=== PATIENT | male | born 1940 | race Caucasian/White ===

== ENCOUNTER 2019-01-13 20:31 | Emergency (ER) | payer MEDICARE, OTHER ==
[~2019-01-13] VITALS: Ht 177.8 cm; Wt 86.2 kg
--- OUTSIDE RECORDS SUMMARY | 2019-01-13 20:37 | XMS REPORT | Continuity of Care Document ---
Author Author [facility] Organization [facility] Address Unknown Phone Unavailable Allergies Active Description Code Type Severity Reaction Onset Reported/Identified Relationship to Patient Clinical Status Yes No Known Drug Allergies [id number] Drug Allergy Unknown N/A 09/25/2012 Medications There is no data. Problems There is no data. Procedures There is no data. Results There is no data. Encounters ACCT No. Visit Date/Time Discharge Status Pt. Type Provider Facility Loc./Unit Complaint [id number] 01/05/2014 09:33:00 01/05/2014 23:59:59 [facility] Outpatient [id number] 10/06/2013 10:30:00 10/06/2013 23:59:59 [facility] Out[facility] [id number] 07/07/2013 13:24:00 07/07/2013 23:59:59 [facility] Outpatient [id number] 04/07/2013 10:59:00 04/07/2013 23:59:59 [facility] Outpatient [id number] 01/13/2019 20:33:00 ACT Emergency ESME ROJO DO [facility] ER FS HIGH HEART RATE, SOB, WEAK
[2019-01-13] MEDS ORDERED: morphine INJ 10 MG/ML 1ML (SYR OR VIAL) IV STA (20:52)
[2019-01-13 21:00] VITALS: BP 140/69
[2019-01-13 21:30] VITALS: BP 149/69
--- NOTE | 2019-01-13 21:35 | ED Chest Pain ---
General Chief Complaint: Cardiac/General Problems Stated Complaint: HIGH HEART RATE, SOB, WEAK Nursing Triage Note: palpitations started this afternoon around 1500, states he has had off and on since saturday. pt states no pain to chest just pressure at a 5. Nursing Sepsis Screen: No Definite Risk History of Present Illness Date Seen by Provider: Jan 13, 2019 Time Seen by Provider: 20:42 This is a 78-year-old male with a history of hypertension, atrial fibrillation on L Aquinas, here for a sensation of generalized shakiness, elevation in blood pressure reading at home, sensation that the heart is beating hard, some degree of chest pressure. He just finished a course of steroids yesterday for back pain as prescribed by his orthopedic surgeon. He has had stress test in the past that have been normal however the last one was over a year ago he estimates. He has not been having shortness of breath or lightheadedness or nausea or diaphoresis. The chest pressure did not radiate to the back of the neck or the arm or elsewhere. It actually has completely resolved at this time. The chest discomfort has been waxing and waning for the last several days actually but was worse starting about 5 hours prior to arrival. This is nonexertional. The pain is not sharp or tearing, it is not migratory, it was not severe when present, there is no weakness numbness or tingling. He did not drink a lot of water today because he was traveling a lot, he had coffee and a small gatorade. Allergies and Home Medications Allergies Coded Allergies: codeine (Verified Allergy, Unknown, itching, 01/13/19) Home Medications Ferrous Gluconate 1 Tab Tablet, DAILY, (Reported) Vit B Cmplx & C#11/Ca/Dha/Q10 1 Each Tablet, DAILY, (Reported) Vit C/Echin Purp/Herb11 500 Mg Tablet, DAILY, (Reported) Patient Home Medication List Home Medication List Reviewed: Yes Review of Systems Review of Systems Constitutional: see HPI EENTM: No Symptoms Reported Respiratory: No Symptoms Reported Cardiovascular: See HPI Gastrointestinal: No Symptoms Reported Genitourinary: No Symptoms Reported Musculoskeletal: no symptoms reported Skin: no symptoms reported Psychiatric/Neurological: No Symptoms Reported Endocrine: No Symptoms Reported Hematologic/Lymphatic: No Symptoms Reported Past Hqeprkz-Kvnruh-Gybvcg Hx Patient Social History Alcohol Use: Denies Use Recreational Drug Use: No Smoking Status: Never a Smoker 2nd Hand Smoke Exposure: No Recent Foreign Travel: No Contact w/Someone Who Travel: No Recent Infectious Disease Expo: No Recent Hopitalizations: No Physical Abuse: No Sexual Abuse: No Mistreated: No Fear: No Seasonal Allergies Seasonal Allergies: No Past Medical History Surgeries: Yes Abdominal, Eye Surgery, Joint Replacement Respiratory: Yes Cardiac: Yes Atrial Fibrillation, Irregular Heartbeat, Palpitations Neurological: No Genitourinary: Yes Prostate Problems, Kidney Stones Gastrointestinal: Yes Liver Disease/Jaundice Musculoskeletal: Yes Arthritis Endocrine: No HEENT: Yes Cataract Cancer: Yes Lung What Type of Treatment Did You: Surgical Intervention Psychosocial: No Integumentary: No Blood Disorders: No Physical Exam Vital Signs Vital Signs - First Documented 01/13/19 01/13/19 20:53 21:00 Temp 98.8 Pulse 86 Resp 18 B/P (MAP) 177/63 (101) Pulse Ox 98 O2 Delivery Room Air Capillary Refill : Less Than 3 Seconds Height, Weight, BMI Height: 5'10.00" Weight: 190lbs. oz. 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 Norm as Tested; No Abnormal Gait Skin: Warm/Dry Progress/Results/Core Measures Results/Orders Lab Results Laboratory Tests Test 01/13/19 21:20 01/13/19 22:12 Range/Units White Blood Count 9.6 4.3-11.0 10^3/uL Red Blood Count 4.68 4.35-5.85 10^6/uL Hemoglobin 13.2 L 13.3-17.7 G/DL Hematocrit 41 40-54 % Mean Corpuscular Volume 88 80-99 FL Mean Corpuscular Hemoglobin 28 25-34 PG Mean Corpuscular Hemoglobin Concent 32 32-36 G/DL Red Cell Distribution Width 15.9 H 10.0-14.5 % Platelet Count 215 130-400 10^3/uL Mean Platelet Volume 10.6 H 7.4-10.4 FL Prothrombin Time 13.3 12.2-14.7 SEC INR Comment 1.0 0.8-1.4 Activated Partial Thromboplast Time 27 24-35 SEC Sodium Level 139 135-145 MMOL/L Potassium Level 3.9 3.6-5.0 MMOL/L Chloride Level 103 98-107 MMOL/L Carbon Dioxide Level 20 L 21-32 MMOL/L Anion Gap 16 H 5-14 MMOL/L Blood Urea Nitrogen 27 H 7-18 MG/DL Creatinine 1.06 0.60-1.30 MG/DL Estimat Glomerular Filtration Rate > 60 BUN/Creatinine Ratio 25 Glucose Level 234 H 70-105 MG/DL Calcium Level 9.3 8.5-10.1 MG/DL Corrected Calcium 9.3 8.5-10.1 MG/DL Magnesium Level 1.8 1.8-2.4 MG/DL Total Bilirubin 0.2 0.1-1.0 MG/DL Aspartate Amino Transf (AST/SGOT) 15 5-34 U/L Alanine Aminotransferase (ALT/SGPT) 22 0-55 U/L Alkaline Phosphatase 58 40-136 U/L Troponin T 14 <=15 NG/L Total Protein 6.7 6.4-8.2 GM/DL Albumin 4.0 3.2-4.5 GM/DL My Orders Orders - ESME ROJO DO Magnesium (01/13/19 20:52) Chest 1 View Ap/Pa Only (01/13/19 20:52) Ekg Tracing (01/13/19 20:52) Comprehensive Metabolic Panel (01/13/19 20:52) Protime With Inr (01/13/19 20:52) Partial Thromboplastin Time (01/13/19 20:52) Monitor-Rhythm Ecg Trace Only (01/13/19 20:52) Morphine Injection (Morphine Injection (01/13/19 20:52) Saline Lock/Iv-Start (01/13/19 20:52) Cbc No Diff (01/13/19 20:52) Amlodipine Tablet (Norvasc Tablet) (01/13/19 21:59) Ns Iv 1000 Ml (Sodium Chloride 0.9%) (01/13/19 22:16) Lisinopril Tablet (Zestril Tablet) (01/13/19 22:16) Ekg Tracing (01/13/19 22:30) Troponin T (01/13/19 22:18) Troponin T (01/13/19 23:29) Vital Signs/I&O 01/13/19 01/13/19 01/13/19 20:53 21:00 21:30 Temp 98.8 Pulse 86 75 69 Resp 18 15 16 B/P (MAP) 177/63 (101) 140/69 (92) 149/69 (95) Pulse Ox 98 97 O2 Delivery Room Air Room Air Room Air Blood Pressure Mean: 101 Progress Progress Note #1: Progress Note This is a 78-year-old male complaining of shakiness, elevated blood pressure after finishing a course of steroids yesterday, also a sensation that the heart is beating hard and some degree of chest pressure. The chest pressure has been coming going over the last few days and has many features which are atypical for ACS or PE or dissection. No STEMI on ECG although there are some subtle ST changes which are partially obscured by artifact. We will repeat this study. His pain has been ongoing for several days, worse over the last 5 hours. We will check a troponin now and we can repeat at 2 hours for adequate sensitivity to rule out AMI. I did discuss with patient admission for ACS rule out versus outpatient follow-up with cardiology which is also a reasonable strategy assuming that patient remains asymptomatic, he prefers to go home. I offered morphine for pain and for anxiolysis, he actually again denied need for any medications for his symptoms at this time as they have resolved. Progress Note #2: Progress Note Highest blood pressures recorded at home were in the 170s over 80s range. Blood pressures in the emergency department have been similar, systolics have ranged from 160-190. Patient takes a low-dose of lisinopril at home, 2.5 mg daily, we can give a higher dose in the emergency department to gently bring his blood pressure lower. Glucose is slightly elevated, bicarbonate is 20, and there is a prerenal azotemia so we will give a liter of saline. Progress Note #3: Progress Note Patient remains feeling well and would like to go home. Most recent blood pressure 159/69. He feels that shakiness has resolved. He will call his doctor tomorrow. He will call 911 or return immediately for any new or worsening symptoms. EKG : Comment 2036: Sinus rhythm with first-degree AV block with premature atrial complexes rate of 85, OR interval 216 ms. There is artifact and baseline wander which obscures interpretation of the ST segments primarily in the lateral leads. QTC is measured at 466 ms. Repeat ECG at 2306: Sinus rhythm with first-degree AV block with premature atrial complexes as before, rate of 62. There is artifact which obscures interpretation in the augmented limb leads. There is nonspecific T-wave flattening in the anterior and inferior leads. QTC measured at 312 ms on this ECG. Diagnostic Imaging Diagonstic Imaging: Xray Departure Impression Primary Impression: Chest discomfort Additional Impressions: Palpitations Steroid side effects Qualified Codes: T38.0X5A - Adverse effect of glucocorticoids and synthetic analogues, initial encounter Hyperglycemia Hypertension Qualified Codes: I10 - Essential (primary) hypertension Dehydration Disposition: 01 HOME, SELF-CARE Condition: Stable Departure-Patient Inst. Referrals: HAIR GARCIA MD (PCP) Primary Care Physician Patient Instructions: Chest Pain (DC) ESME ROJO DO Jan 13, 2019 21:35
[2019-01-13 21:36] LABS: HEMOGLOBIN 13.2 G/DL (13.3-17.7); RED CELL DISTRIBUTION WIDTH 15.9 % (10.0-14.5); WHITE BLOOD COUNT 9.6 10^3/uL (4.3-11.0)
[2019-01-13 21:37] LABS: MEAN PLATELET VOLUME 10.6 FL (7.4-10.4)
--- NOTE | 2019-01-13 21:55 | Diagnostic Imaging Report ---
INDICATION: Palpitations FINDINGS: Heart size and configuration normal. The lungs are clear. There is no vascular congestion. No edema, pneumonia, effusion or pneumothorax. IMPRESSION: No acute appearing abnormality. Dictated by: Dictated on workstation # [id number]
[2019-01-13 21:57] LABS: BUN/CREATININE RATIO 25; CARBON DIOXIDE 20 MMOL/L (21-32); CHLORIDE 103 MMOL/L (98-107); CREATININE SERUM 1.06 MG/DL (0.60-1.30); GFR ESTIMATED > 60; GLUCOSE 234 MG/DL (70-105); POTASSIUM 3.9 MMOL/L (3.6-5.0); SODIUM 139 MMOL/L (135-145)
[2019-01-13 21:58] LABS: ALANINE AMINOTRANSFERASE 22 U/L (0-55); ALKALINE PHOSPHATASE 58 U/L (40-136); BILIRUBIN,TOTAL 0.2 MG/DL (0.1-1.0); CALCIUM 9.3 MG/DL (8.5-10.1); MAGNESIUM 1.8 MG/DL (1.8-2.4); TOTAL PROTEIN 6.7 GM/DL (6.4-8.2)
[2019-01-13] MEDS ORDERED: amLODIPine 5 MG (NORVASC) TAB PO STA (21:59)
[2019-01-13] MEDS ORDERED: FLECAINIDE ACETATE 100 MG (22:00)
[2019-01-13] MEDS ORDERED: HYDROCHLOROTHIAZIDE 12.5 MG (22:00)
[2019-01-13] MEDS ORDERED: METFORMIN HYDROCHLORIDE 500 MG (22:00)
[2019-01-13] MEDS ORDERED: HYDROCO/APAP TAB 5-325MG (22:00)
[2019-01-13] MEDS ORDERED: TEMAZEPAM 30 MG (22:00)
[2019-01-13] MEDS ORDERED: AMLODIPINE BESYLATE 10 MG TABS (22:00)
[2019-01-13] MEDS ORDERED: PANTOPRAZOLE SODIUM 40 MG TBEC (22:00)
[2019-01-13] MEDS ORDERED: LISINOPRIL 2.5 MG TABS (22:00)
[2019-01-13] MEDS ORDERED: ELIQUIS 5 MG (22:00)
[2019-01-13] MEDS ORDERED: POTASSIUM CHLORIDE 20 MEQ (22:00)
[2019-01-13] MEDS ORDERED: DIGOXIN 125 MCG (22:00)
[2019-01-13] MEDS ORDERED: VIT1TABL (22:05)
[2019-01-13] MEDS ORDERED: VIT1TABL57 (22:05)
[2019-01-13] MEDS ORDERED: ACET-2650 (22:05)
[2019-01-13] MEDS ORDERED: VIT500TA (22:05)
[2019-01-13] MEDS ORDERED: MULT-974 (22:05)
[2019-01-13] MEDS ORDERED: FERR240T9 (22:05)
[2019-01-13 22:07] LABS: PROTHROMBIN TIME PATIENT 13.3 SEC (12.2-14.7)
[2019-01-13] MEDS ORDERED: lisINopril 10 MG (PRINIVIL) TABLET PO STA (22:16)
[2019-01-13] MEDS ORDERED: NS IV 1000 ML 1,000 ML IV STA (22:16)
[2019-01-13 23:56] VITALS: BP 159/69
== END 2019-01-13 23:56 | disposition home or self-care (01) ==
LOC: EDUNIT# 20:31 → ER FS 20:33
DX: R07.89 Other chest pain (principal); R00.2 Palpitations; T38.0X5A Adverse effect of glucocorticoids and synthetic analogues, initial encounter; R73.9 Hyperglycemia, unspecified; I10 Essential (primary) hypertension; E86.0 Dehydration; I48.91 Unspecified atrial fibrillation; Z88.5 Allergy status to narcotic agent; Z98.890 Other specified postprocedural states; Z87.442 Personal history of urinary calculi; Z87.19 Personal history of other diseases of the digestive system; Z85.118 Personal history of other malignant neoplasm of bronchus and lung
CPT/HCPCS: 36415; 71045; 80053; 83735; 84484; 85027; 85610; 85730; 93005

== ENCOUNTER 2019-04-17 10:30 | Inpatient (IN) | payer MEDICARE, OTHER ==
[~2019-04-17] VITALS: Ht 177.8 cm; Wt 84.1 kg
[~2019-04-17 10:30] MED LIST: ACET-2650 PO; AMLODIPINE BESYLATE 10 MG TABS; DIGOXIN 125 MCG; ELIQUIS 5 MG; FERR240T9; FLECAINIDE ACETATE 100 MG; HYDROCHLOROTHIAZIDE 12.5 MG; HYDROCO/APAP TAB 5-325MG; LISINOPRIL 2.5 MG TABS; METFORMIN HYDROCHLORIDE 500 MG; MULT-974; PANTOPRAZOLE SODIUM 40 MG TBEC; POTASSIUM CHLORIDE 20 MEQ; TEMAZEPAM 30 MG; VIT1TABL PO; VIT1TABL57; VIT500TA
--- NOTE | 2019-04-17 11:04 | ED General ---
General Stated Complaint: LIP/JEANA FEET NUMBNESS; DOUBLE VISION Source of Information: Patient Exam Limitations: No Limitations History of Present Illness Date Seen by Provider: Apr 17, 2019 Time Seen by Provider: 10:48 Initial Comments The patient is a very pleasant 78-year-old male here with his for evaluation of an episode of leg heaviness and vision changes. He states that he woke up today feeling normal and has not some which lasted approximately 60-90 minutes during which he felt like he was having double vision and extremely heavy legs. He states that his legs felt there were 50 pounds. He said it is because of the heaviness he was feeling he found it difficult to walk. The time and they checked his blood pressure and found it to be slightly elevated and check his blood sugar and found it to be around 100. The patient reports that his symptoms have almost entirely resolved. He says his vision changes have completely resolved but that he is having a tingling sensation around his lips and that his legs feel mostly back to normal. He is alert and oriented 4, calm, appears to be in no distress. He denies fevers or chills, nausea or vomiting, chest pain or shortness of breath, abdominal back pain, focal weakness, focal numbness, headache, neck pain or neck stiffness, syncope, recent head injury, confusion, difficulty speaking, or difficulty mentating. His was present at the time and states that his speech was normal and he did not seem confused but noted that his face seemed somewhat red. His significant past medical history including but not limited to right-sided lung cancer (had recent PET scan, had previous lower lobectomy), GI bleeding status post colostomy, hypertension, atrial fibrillation, and borderline diabetes. Timing/Duration: 1-3 Hours Severity: Moderate Allergies and Home Medications Allergies Coded Allergies: codeine (Verified Allergy, Unknown, itching, 01/13/19) Home Medications Ferrous Gluconate 1 Tab Tablet, DAILY, (Reported) Vit B Cmplx & C#11/Ca/Dha/Q10 1 Each Tablet, DAILY, (Reported) Vit C/Echin Purp/Herb11 500 Mg Tablet, DAILY, (Reported) Patient Home Medication List Home Medication List Reviewed: Yes Review of Systems Review of Systems Constitutional: no symptoms reported EENTM: see HPI, double vision Respiratory: no symptoms reported Cardiovascular: no symptoms reported Gastrointestinal: no symptoms reported Genitourinary: no symptoms reported Musculoskeletal: no symptoms reported Skin: no symptoms reported Psychiatric/Neurological: No Symptoms Reported, Paresthesia (perioral), Other (b/l legs felt heavy, difficulty walking) Hematologic/Lymphatic: No Symptoms Reported Immunological/Allergic: no symptoms reported Past Eiesznn-Mbvtfd-Ettthq Hx Past Med/Social Hx: Reviewed Nursing Past Med/Soc Hx, Reviewed and Corrections made Patient Social History 2nd Hand Smoke Exposure: No Recent Hopitalizations: No Seasonal Allergies Seasonal Allergies: No Past Medical History Surgeries: Yes Abdominal, Eye Surgery, Joint Replacement Respiratory: Yes Cardiac: Yes Atrial Fibrillation, Irregular Heartbeat, Palpitations Neurological: No Genitourinary: Yes Prostate Problems, Kidney Stones Gastrointestinal: Yes Liver Disease/Jaundice Musculoskeletal: Yes Arthritis Endocrine: No HEENT: Yes Cataract Cancer: Yes Lung What Type of Treatment Did You: Surgical Intervention Psychosocial: No Integumentary: No Blood Disorders: No Physical Exam Vital Signs Vital Signs - First Documented 04/17/19 10:35 Temp 97.8 Pulse 69 Resp 16 B/P (MAP) 152/63 (92) Pulse Ox 97 O2 Delivery Room Air Capillary Refill : Height, Weight, BMI Height: 5'10.00" Weight: 190lbs. oz. 86.089480xa; BMI Method:Stated General Appearance: No Apparent Distress, WD/WN Eyes: Bilateral Eye Normal Inspection, Bilateral Eye PERRL, Bilateral Eye EOMI HEENT: PERRL/EOMI, Normal ENT Inspection, Pharynx Normal Neck: Full Range of Motion, Normal Inspection, Non Tender, Supple Respiratory: Chest Non Tender, Lungs Clear, Normal Breath Sounds, No Accessory Muscle Use, No Respiratory Distress Cardiovascular: Regular Rate, Rhythm, No Edema, No Gallop, No JVD Gastrointestinal: Normal Bowel Sounds, No Organomegaly, No Pulsatile Mass, Non Tender, Soft, Other (colostomy present) Back: Normal Inspection, No CVA Tenderness, No Vertebral Tenderness Extremity: Normal Capillary Refill, Normal Inspection, Normal Range of Motion, Non Tender, No Calf Tenderness Neurologic/Psychiatric: Alert, Oriented x3, No Motor/Sensory Deficits, Normal 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, 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 Norm as Tested Skin: Normal Color, Warm/Dry Lymphatic: No Adenopathy Progress/Results/Core Measures Suspected Sepsis SIRS Temperature: Pulse: Respiratory Rate: Laboratory Tests 04/17/19 10:45: White Blood Count 7.2 Blood Pressure / Mean: Laboratory Tests 04/17/19 10:45: Creatinine 1.13, Platelet Count 229, Total Bilirubin 0.4 Results/Orders Lab Results Laboratory Tests Test 04/17/19 10:45 04/17/19 11:43 Range/Units White Blood Count 7.2 4.3-11.0 10^3/uL Red Blood Count 4.47 4.35-5.85 10^6/uL Hemoglobin 13.6 13.3-17.7 G/DL Hematocrit 41 40-54 % Mean Corpuscular Volume 91 80-99 FL Mean Corpuscular Hemoglobin 30 25-34 PG Mean Corpuscular Hemoglobin Concent 34 32-36 G/DL Red Cell Distribution Width 14.1 10.0-14.5 % Platelet Count 229 130-400 10^3/uL Mean Platelet Volume 10.4 7.4-10.4 FL Neutrophils (%) (Auto) 75 42-75 % Lymphocytes (%) (Auto) 13 12-44 % Monocytes (%) (Auto) 10 0-12 % Eosinophils (%) (Auto) 2 0-10 % Basophils (%) (Auto) 0 0-10 % Neutrophils # (Auto) 5.4 1.8-7.8 X 10^3 Lymphocytes # (Auto) 0.9 L 1.0-4.0 X 10^3 Monocytes # (Auto) 0.7 0.0-1.0 X 10^3 Eosinophils # (Auto) 0.1 0.0-0.3 10^3/uL Basophils # (Auto) 0.0 0.0-0.1 10^3/uL Sodium Level 136 135-145 MMOL/L Potassium Level 4.3 3.6-5.0 MMOL/L Chloride Level 98 98-107 MMOL/L Carbon Dioxide Level 24 21-32 MMOL/L Anion Gap 14 5-14 MMOL/L Blood Urea Nitrogen 20 H 7-18 MG/DL Creatinine 1.13 0.60-1.30 MG/DL Estimat Glomerular Filtration Rate > 60 BUN/Creatinine Ratio 18 Glucose Level 147 H 70-105 MG/DL Calcium Level 9.6 8.5-10.1 MG/DL Corrected Calcium 9.3 8.5-10.1 MG/DL Total Bilirubin 0.4 0.1-1.0 MG/DL Aspartate Amino Transf (AST/SGOT) 22 5-34 U/L Alanine Aminotransferase (ALT/SGPT) 18 0-55 U/L Alkaline Phosphatase 64 40-136 U/L Troponin T 17 H <=15 NG/L Pro-B-Type Natriuretic Peptide 62.0 <75.0 PG/ML Total Protein 7.3 6.4-8.2 GM/DL Albumin 4.4 3.2-4.5 GM/DL Urine Color YELLOW Urine Clarity CLEAR Urine pH 5.5 5-9 Urine Specific [place] 1.015 L 1.016-1.022 Urine Protein NEGATIVE NEGATIVE Urine Glucose (UA) NEGATIVE NEGATIVE Urine Ketones NEGATIVE NEGATIVE Urine Nitrite NEGATIVE NEGATIVE Urine Bilirubin NEGATIVE NEGATIVE Urine Urobilinogen 0.2 NORMAL MG/DL Urine Leukocyte Esterase NEGATIVE NEGATIVE Urine RBC (Auto) NEGATIVE NEGATIVE Urine RBC 0-2 /HPF Urine WBC 0-2 /HPF Urine Squamous Epithelial Cells 0-2 /HPF Urine Crystals NONE /LPF Urine Bacteria NEGATIVE /HPF Urine Casts PRESENT /LPF Urine Hyaline Casts 0-2 H /LPF Urine Mucus FEW /LPF Urine Culture Indicated NO My Orders Orders - WILLIAM MAN DO Ct Head Wo (04/17/19 10:54) Cbc With Automated Diff (04/17/19 10:54) Comprehensive Metabolic Panel (04/17/19 10:54) Urinalysis (04/17/19 10:54) Technical Data Analyst (04/17/19 10:54) Ekg Tracing (04/17/19 10:54) Troponin T (04/17/19 10:54) Probnp Fs (04/17/19 10:54) Chest 1 View Ap/Pa Only (04/17/19 10:54) Ed Iv/Invasive Line Start (04/17/19 10:54) Creatine Kinase Mb (04/17/19 12:18) Aspirin Chewable Tablet (Baby Aspirin Ch (04/17/19 12:30) Vital Signs/I&O 04/17/19 10:35 Temp 97.8 Pulse 69 Resp 16 B/P (MAP) 152/63 (92) Pulse Ox 97 O2 Delivery Room Air Capillary Refill : Progress Note : Progress Note @1225 - patient and updated on lab and imaging results. Due to the pat ient's symptoms were due to concern for possible TIA and his slightly elevated troponin admission will be required. They are agreeable to this. Patient prefers to go to [facility]. He was recently at [facility] however does not want to go there again and [facility] will be able to accommodate him at this time. Dr. Johnny galvez at this time. ECG Initial ECG Impression Date: Apr 17, 2019 Initial ECG Impression Time: 10:52 Initial ECG Rhythm: Normal Sinus, A Fib/Flutter Initial ECG Intervals Atrial fibrillation with a rate of 66, normal axis, no acute ischemic findings noted, no STEMI, reviewed and interpreted by myself Diagnostic Imaging Diagonstic Imaging: Xray, CT Plain Films/CT/US/NM/MRI: head Comments [facility] [place], [place] NAME: JOANN CLAIRE [facility] REC#: [id number] PT STATUS: REG ER : 1940 PHYSICIAN: WILLIAM MAN DO ADMIT DATE: 04/17/19/ER FS Draft Date of Exam:04/17/19 CT HEAD WO INDICATION: Sudden onset double vision and facial numbness EXAM: Noncontrast brain CT is performed COMPARISON: There is no prior study for comparison FINDINGS: There are mild diffuse atrophic changes. There are no extra-axial fluid collections. No intracranial hemorrhage. No mass or mass effect. No midline shift. The ventricles are normal in size and position. There is no focal parenchymal abnormality of the brain. There are some vascular calcifications noted in the distal vertebral arteries and carotid siphons. Calvarial windows appear normal. IMPRESSION: Diffuse atrophic changes. No acute intracranial process visualized. Dictated on workstation # [id number] Dict: 04/17/19 1117 Trans: 04/17/19 [address] [facility] [id number] Interpreted by: MEGA HOLDEN MD Electronically signed by: [facility] [place], [place] NAME: JOANN CLAIRE [facility] REC#: [id number] PT STATUS: REG ER : 1940 PHYSICIAN: WILLIAM MAN DO ADMIT DATE: 04/17/19/ER FS Draft Date of Exam:04/17/19 CHEST 1 VIEW AP/PA ONLY INDICATION: Sudden onset of double vision and lip numbness. TIME OF EXAM: 10:58 AM CORRELATION is made with prior study from 01/13/2019. FINDINGS: The heart size is stable. The lungs are clear. No infiltrate, effusion or pneumothorax is seen. IMPRESSION: No acute cardiopulmonary process is detected. Dictated on workstation # [id number] Dict: 04/17/19 1120 Trans: 04/17/19 [address] [facility] [id number] Interpreted by: ROBERT JOHNSON MD Electronically signed by: Departure Impression Primary Impression: TIA (transient ischemic attack) Additional Impression: Elevated troponin level Disposition: ADMITTED INPATIENT Condition: Stable Admissions Decision to Admit/Date: Apr 17, 2019 Time/Decision to Admit Time: 12:25 Transfer Time Spoke to Accepting Phy: 12:40 Transfer Progress Notes Case discussed with Dr. Garay who accepts the observation admission and has confirmed that she will be able to obtain an MRI this afternoon. Method of Transfer: EMS Departure-Patient Inst. Decision time for Depature: 12:40 Referrals: [facility] (PCP) Primary Care Physician ROMSERY WADE APRN (Family) Primary Care Physician WILLIAM MAN DO Apr 17, 2019 11:04
[2019-04-17 11:18] LABS: HEMATOCRIT 41 % (40-54); HEMOGLOBIN 13.6 G/DL (13.3-17.7); MEAN CORPUSCULAR HEMOGLOBIN 30 PG (25-34); WHITE BLOOD COUNT 7.2 10^3/uL (4.3-11.0)
[2019-04-17 11:19] LABS: BASOPHILS % (AUTO) 0 % (0-10); EOSINOPHILS # (AUTO) 0.1 10^3/uL (0.0-0.3); EOSINOPHILS % (AUTO) 2 % (0-10); LYMPHOCYTES # (AUTO) 0.9 X 10^3 (1.0-4.0); LYMPHOCYTES % (AUTO) 13 % (12-44); MEAN CORPUSCULAR HGB CONC 34 G/DL (32-36); MEAN CORPUSCULAR VOLUME 91 FL (80-99); MEAN PLATELET VOLUME 10.4 FL (7.4-10.4); MONOCYTES # (AUTO) 0.7 X 10^3 (0.0-1.0); MONOCYTES % (AUTO) 10 % (0-12); NEUTROPHILS # (AUTO) 5.4 X 10^3 (1.8-7.8); NEUTROPHILS % (AUTO) 75 % (42-75); PLATELET COUNT 229 10^3/uL (130-400); RED CELL DISTRIBUTION WIDTH 14.1 % (10.0-14.5)
--- NOTE | 2019-04-17 11:24 | Diagnostic Imaging Report ---
INDICATION: Sudden onset of double vision and lip numbness. TIME OF EXAM: 10:58 AM CORRELATION is made with prior study from 01/13/2019. FINDINGS: The heart size is stable. The lungs are clear. No infiltrate, effusion or pneumothorax is seen. IMPRESSION: No acute cardiopulmonary process is detected. Dictated by: Dictated on workstation # [id number]
--- NOTE | 2019-04-17 11:30 | Diagnostic Imaging Report ---
INDICATION: Sudden onset double vision and facial numbness EXAM: Noncontrast brain CT is performed COMPARISON: There is no prior study for comparison FINDINGS: There are mild diffuse atrophic changes. There are no extra-axial fluid collections. No intracranial hemorrhage. No mass or mass effect. No midline shift. The ventricles are normal in size and position. There is no focal parenchymal abnormality of the brain. There are some vascular calcifications noted in the distal vertebral arteries and carotid siphons. Calvarial windows appear normal. IMPRESSION: Diffuse atrophic changes. No acute intracranial process visualized. Dictated by: Dictated on workstation # [id number]
[2019-04-17 11:31] LABS: CARBON DIOXIDE 24 MMOL/L (21-32); CHLORIDE 98 MMOL/L (98-107); POTASSIUM 4.3 MMOL/L (3.6-5.0); SODIUM 136 MMOL/L (135-145)
[2019-04-17 11:32] LABS: ALANINE AMINOTRANSFERASE 18 U/L (0-55); ALKALINE PHOSPHATASE 64 U/L (40-136); BILIRUBIN,TOTAL 0.4 MG/DL (0.1-1.0); BUN/CREATININE RATIO 18; CALCIUM 9.6 MG/DL (8.5-10.1); CREATININE SERUM 1.13 MG/DL (0.60-1.30); GFR ESTIMATED > 60; GLUCOSE 147 MG/DL (70-105); TOTAL PROTEIN 7.3 GM/DL (6.4-8.2)
[2019-04-17 11:33] LABS: ALBUMIN 4.4 GM/DL (3.2-4.5)
[2019-04-17 11:58] LABS: BACTERIA,URINE NEGATIVE /HPF; BILIRUBIN,URINE NEGATIVE (NEGATIVE); CLARITY,URINE CLEAR; COLOR,URINE YELLOW; GLUCOSE, URINE (UA) NEGATIVE (NEGATIVE); KETONES,URINE NEGATIVE (NEGATIVE); LEUKOCYTE ESTERASE ,URINE NEGATIVE (NEGATIVE); NITRITE,URINE NEGATIVE (NEGATIVE); PH,URINE 5.5 (5-9); PROTEIN,URINE NEGATIVE (NEGATIVE); RBC,URINE 0-2 /HPF; SQUAMOUS EPITHELIAL CELL,UR 0-2 /HPF; UROBILINOGEN,URINE 0.2 MG/DL (NORMAL); WBC,URINE 0-2 /HPF
[2019-04-17 11:59] LABS: HYALINE CASTS, URINE 0-2 /LPF
[2019-04-17] MEDS ORDERED: ASPIRIN 81 MG CHEW (CHILDREN'S ASA) PO ONE (12:30)
[2019-04-17] MEDS ORDERED: ALPRAZolam 0.25 MG (XANAX) TAB PO PRN (13:00)
[2019-04-17] MEDS ORDERED: DOCUSATE SODIUM 100 MG (COLACE) CAP PO PRN (13:00)
[2019-04-17] MEDS ORDERED: CALCIUM CARBONATE 500 MG (TUMS) TAB.CHEW PO PRN (13:00)
[2019-04-17] MEDS ORDERED: LOPERAMIDE 2 MG (IMODIUM) CAP PO PRN (13:00)
[2019-04-17] MEDS ORDERED: ONDANSETRON 4 MG/2 ML (SDV) Z0FRAN IVP PRN (13:00)
[2019-04-17] MEDS ORDERED: ACETAMINOPHEN 500 MG TAB (TYLENOL) PO PRN ×2 (13:00→21:45)
[2019-04-17] MEDS ORDERED: HYDROcodone/APAP 5 MG/325 MG (LORTAB) TAB PO PRN ×2 (13:00→20:30)
[2019-04-17] MEDS ORDERED: MELATONIN 3 MG TABLET PO PRN (13:00)
--- OUTSIDE RECORDS SUMMARY | 2019-04-17 13:44 | XMS REPORT | Continuity of Care Document ---
Author Organization Unknown Address Unknown Allergies Active Description Code Type Severity Reaction Onset Reported/Identified Relationship to Patient Clinical Status Yes No Known Drug Allergies [id number] Drug Allergy Unknown N/A 09/25/2012 Yes codeine [id number] Drug Allergy Unknown itching 01/13/2019 Medications There is no data. Problems Date Dx Coded Attending Type Code Diagnosis Diagnosed By 01/13/2019 ANASTASIIA BALL Ot 585.3 CHRONIC KIDNEY DISEASE, STAGE III (MODER 01/13/2019 ANASTASIIA BALL Ot V10.09 HX OF GI MALIGNANCY NEC 01/13/2019 ANASTASIIA BALL Ot V44.2 ILEOSTOMY STATUS 01/13/2019 ANASTASIIA BALL Ot V58.69 OTH MED,LT,CURRENT USE 01/13/2019 ANASTASIIA BALL Ot V67.09 SURGERY FOLLOW-UP, OTHER SURGERY 01/13/2019 ESME ROJO DO Ot E86.0 DEHYDRATION 01/13/2019 ESME ORJO DO Ot I10 ESSENTIAL (PRIMARY) HYPERTENSION 01/13/2019 ESME ROJO DO T Ot I48.91 UNSPECIFIED ATRIAL FIBRILLATION 01/13/2019 ESME ROJO DO Ot R00.2 PALPITATIONS 01/13/2019 ESME ROJO DO Ot R06.02 SHORTNESS OF BREATH 01/13/2019 ESME ROJO DO T Ot R07.89 OTHER CHEST PAIN 01/13/2019 ESME ROJO DO T Ot R73.9 HYPERGLYCEMIA, UNSPECIFIED 01/13/2019 ESME ROJO DO Ot T38.0X5A ADVERSE EFFECT OF GLUCOCORT/SYNTH ANALOG 01/13/2019 ESME ROJO DO T Ot Z85.118 PERSONAL HISTORY OF MALIGNANT NEOPLASM O 01/13/2019 ESME ROJO DO T Ot Z87.19 PERSONAL HISTORY OF OTHER DISEASES OF TH 01/13/2019 ESME ROJO DO Ot Z87.442 PERSONAL HISTORY OF URINARY CALCULI 01/13/2019 ESME ROJO DO Ot Z88.5 ALLERGY STATUS TO NARCOTIC AGENT STATUS 01/13/2019 ESME ROJO DO Ot Z98.890 OTHER SPECIFIED POSTPROCEDURAL STATES Procedures There is no data. Results Test Result Range Automated blood complete blood count (hemogram) panel - 01/13/19 21:20 Blood leukocytes automated count (number/volume) 9.6 10*3/uL 4.3-11.0 Blood erythrocytes automated count (number/volume) 4.68 10*6/uL 4.35-5.85 Venous blood hemoglobin measurement (mass/volume) 13.2 g/dL 13.3-17.7 Blood hematocrit (volume fraction) 41 % 40-54 Automated erythrocyte mean corpuscular volume 88 [foz_us] 80-99 Automated erythrocyte mean corpuscular hemoglobin (mass per erythrocyte) 28 pg 25-34 Automated erythrocyte mean corpuscular hemoglobin concentration measurement (mass/volume) 32 g/dL 32-36 Automated erythrocyte distribution width ratio 15.9 % 10.0- 14.5 Automated blood platelet count (count/volume) 215 10*3/uL 130-400 Automated blood platelet mean volume measurement 10.6 [foz_us] 7.4-10.4 Comprehensive metabolic panel - 01/13/19 21:20 Serum or plasma sodium measurement (moles/volume) 139 mmol/L 135-145 Serum or plasma potassium measurement (moles/volume) 3.9 mmol/L 3.6-5.0 Serum or plasma chloride measurement (moles/volume) 103 mmol/L 98-107 Carbon dioxide 20 mmol/L 21-32 Serum or plasma anion gap determination (moles/volume) 16 mmol/L 5-14 Serum or plasma urea nitrogen measurement (mass/volume) 27 mg/dL 7-18 Serum or plasma creatinine measurement (mass/volume) 1.06 mg/dL 0.60-1.30 Serum or plasma urea nitrogen/creatinine mass ratio 25 NRG Serum or plasma creatinine measurement with calculation of estimated glomerular filtration rate > NRG Serum or plasma glucose measurement (mass/volume) 234 mg/dL 70-105 Serum or plasma calcium measurement (mass/volume) 9.3 mg/dL 8.5-10.1 Serum or plasma total bilirubin measurement (mass/volume) 0.2 mg/dL 0.1-1.0 Serum or plasma alkaline phosphatase measurement (enzymatic activity/volume) 58 U/L 40-136 Serum or plasma aspartate aminotransferase measurement (enzymatic activity/volume) 15 U/L 5-34 Serum or plasma alanine aminotransferase measurement (enzymatic activity/volume) 22 U/L 0-55 Serum or plasma protein measurement (mass/volume) 6.7 g/dL 6.4-8.2 Serum or plasma albumin measurement (mass/volume) 4.0 g/dL 3.2-4.5 CALCIUM CORRECTED 9.3 mg/dL 8.5-10.1 Magnesium - 01/13/19 21:20 Magnesium 1.8 mg/dL 1.8-2.4 PT panel in platelet poor plasma by coagulation assay - 01/13/19 21:20 Prothrombin time (PT) in platelet poor plasma by coagulation assay 13.3 s 12.2-14.7 INR in platelet poor plasma or blood by coagulation assay 1.0 0.8-1.4 Activated partial thromboplastin time (aPTT) in platelet poor plasma bycoagulation assay - 01/13/19 21:20 Activated partial thromboplastin time (aPTT) in platelet poor plasma bycoagulation assay 27 s 24-35 TROPONIN T - 01/13/19 21:20 TROPONIN T 14 % <=15 TROPONIN T - 01/13/19 22:12 TROPONIN T 15 % <=15 Complete blood count (CBC) with automated white blood cell (WBC) differential - 04/17/19 10:45 Blood leukocytes automated count (number/volume) 7.2 10*3/uL 4.3-11.0 Blood erythrocytes automated count (number/volume) 4.47 10*6/uL 4.35-5.85 Venous blood hemoglobin measurement (mass/volume) 13.6 g/dL 13.3-17.7 Blood hematocrit (volume fraction) 41 % 40-54 Automated erythrocyte mean corpuscular volume 91 [foz_us] 80-99 Automated erythrocyte mean corpuscular hemoglobin (mass per erythrocyte) 30 pg 25-34 Automated erythrocyte mean corpuscular hemoglobin concentration measurement (mass/volume) 34 g/dL 32-36 Automated erythrocyte distribution width ratio 14.1 % 10.0- 14.5 Automated blood platelet count (count/volume) 229 10*3/uL 130-400 Automated blood platelet mean volume measurement 10.4 [foz_us] 7.4-10.4 Automated blood neutrophils/100 leukocytes 75 % 42-75 Automated blood lymphocytes/100 leukocytes 13 % 12-44 Blood monocytes/100 leukocytes 10 % 0-12 Automated blood eosinophils/100 leukocytes 2 % 0-10 Automated blood basophils/100 leukocytes 0 % 0-10 Blood neutrophils automated count (number/volume) 5.4 10*3 1.8-7.8 Blood lymphocytes automated count (number/volume) 0.9 10*3 1.0-4.0 Blood monocytes automated count (number/volume) 0.7 10*3 0.0- 1.0 Automated eosinophil count 0.1 10*3/uL 0.0-0.3 Automated blood basophil count (count/volume) 0.0 10*3/uL 0.0-0.1 Comprehensive metabolic panel - 04/17/19 10:45 Serum or plasma sodium measurement (moles/volume) 136 mmol/L 135-145 Serum or plasma potassium measurement (moles/volume) 4.3 mmol/L 3.6-5.0 Serum or plasma chloride measurement (moles/volume) 98 mmol/L 98-107 Carbon dioxide 24 mmol/L 21-32 Serum or plasma anion gap determination (moles/volume) 14 mmol/L 5-14 Serum or plasma urea nitrogen measurement (mass/volume) 20 mg/dL 7-18 Serum or plasma creatinine measurement (mass/volume) 1.13 mg/dL 0.60-1.30 Serum or plasma urea nitrogen/creatinine mass ratio 18 NRG Serum or plasma creatinine measurement with calculation of estimated glomerular filtration rate > NRG Serum or plasma glucose measurement (mass/volume) 147 mg/dL 70-105 Serum or plasma calcium measurement (mass/volume) 9.6 mg/dL 8.5-10.1 Serum or plasma total bilirubin measurement (mass/volume) 0.4 mg/dL 0.1-1.0 Serum or plasma alkaline phosphatase measurement (enzymatic activity/volume) 64 U/L 40-136 Serum or plasma aspartate aminotransferase measurement (enzymatic activity/volume) 22 U/L 5-34 Serum or plasma alanine aminotransferase measurement (enzymatic activity/volume) 18 U/L 0-55 Serum or plasma protein measurement (mass/volume) 7.3 g/dL 6.4-8.2 Serum or plasma albumin measurement (mass/volume) 4.4 g/dL 3.2-4.5 CALCIUM CORRECTED 9.3 mg/dL 8.5-10.1 TROPONIN T - 04/17/19 10:45 TROPONIN T 17 % <=15 PROBNP FS - 04/17/19 10:45 PROBNP FS 62.0 pg/mL <75.0 Complete urinalysis with reflex to culture - 04/17/19 11:43 Urine color determination YELLOW NRG Urine clarity determination CLEAR NRG Urine pH measurement by test strip 5.5 5-9 Specific gravity of urine by test strip 1.015 1.016-1.022 Urine protein assay by test strip, semi-quantitative NEGATIVE NEGATIVE Urine glucose detection by automated test strip NEGATIVE NEGATIVE Erythrocytes detection in urine sediment by light microscopy NEGATIVE NEGATIVE Urine ketones detection by automated test strip NEGATIVE NEGATIVE Urine nitrite detection by test strip NEGATIVE NEGATIVE Urine total bilirubin detection by test strip NEGATIVE NEGATIVE Urine urobilinogen measurement by automated test strip (mass/volume) 0.2 mg/dL NORMAL Urine leukocyte esterase detection by dipstick NEGATIVE NEGATIVE Automated urine sediment erythrocyte count by microscopy (number/high power field) [HPF] NRG Automated urine sediment leukocyte count by microscopy (number/high power field) [HPF] NRG Bacteria detection in urine sediment by light microscopy NEGATIVE NRG Squamous epithelial cells detection in urine sediment by light microscopy 0-2 NRG Crystals detection in urine sediment by light microscopy NONE NRG Casts detection in urine sediment by light microscopy PRESENT NRG Mucus detection in urine sediment by light microscopy FEW NRG Complete urinalysis with reflex to culture NO NRG Hyaline casts detection in urine sediment by light microscopy 0-2 NRG Encounters ACCT No. Visit Date/Time Discharge Status Pt. Type Provider Facility Loc./Unit Complaint [id number] 01/13/2019 20:33:00 01/13/2019 23:56:00 DIS Emergency ESME ROJO DO [facility] ER FS HIGH HEART RATE, SOB, WEAK [id number] 01/05/2014 09:33:00 01/05/2014 23:59:59 CLS Preadmit ANASTASIIA BALL [facility] FS [id number] 10/06/2013 10:30:00 10/06/2013 23:59:59 CLS Outpatient [id number] 07/07/2013 13:24:00 07/07/2013 23:59:59 CLS Outpatient [id number] 04/07/2013 10:59:00 04/07/2013 23:59:59 CLS Outpatient [id number] 04/17/2019 11:20:00 Document Registration
[2019-04-17] MEDS ORDERED: FLEC100T PO (13:58)
[2019-04-17] MEDS ORDERED: DIGO125T PO (13:58)
[2019-04-17] MEDS ORDERED: APIX5TAB PO (13:58)
[2019-04-17] MEDS ORDERED: AMLO10TA7 PO (13:58)
[2019-04-17] MEDS ORDERED: HYDR12.56 PO (13:58)
[2019-04-17] MEDS ORDERED: METF-397 PO (13:58)
[2019-04-17] MEDS ORDERED: LISI2.5T PO (13:58)
[2019-04-17] MEDS ORDERED: POTA20TA15 PO (13:58)
[2019-04-17] MEDS ORDERED: HYDR-3812 PO (13:58)
[2019-04-17] MEDS ORDERED: PANT40TA3 PO (13:58)
[2019-04-17] MEDS ORDERED: FERR-84 PO (14:59)
[2019-04-17] MEDS ORDERED: MULT1TAB69 PO (14:59)
[2019-04-17] MEDS ORDERED: ASCO500T6 PO (14:59)
[2019-04-17] MEDS ORDERED: TEMA30CA PO (14:59)
[2019-04-17 15:00] VITALS: BP 158/73
[2019-04-17] MEDS ORDERED: GADOBUTROL 10 MMOL/10 ML (GADAVIST) VIAL IV ONE (15:00)
--- NOTE | 2019-04-17 15:00 | NUR ---
KRISTOFERMICHAELJOANN OLIVIER admitted to room 412-1, with an admitting diagnosis of TIA, ELEVATED TROPONIN, on 04/17/19 from [facility] via EMS, accompanied by STAFF. JOANN CLAIRE introduced to surroundings, call light, bed controls, phone, TV, temperature control, lights, meal times, smoking policy, visitor policy, side rail policy, bathrooms and showers. Patient Rights given to patient in the handbook. JOANN CLAIRE verbalizes understanding that [facility] is not responsible for the loss or damage to any personal effects or valuables that are kept in the patients posession during their hospitalization. JOANN CLAIRE verbalizes understanding of Interdisciplinary Patient Education. Patient and/or family were informed about the Rapid Response Team and its purpose.
[2019-04-17] MEDS ORDERED: ACET-168 PO (15:08)
[2019-04-17] MEDS ORDERED: DIPH25CA79 PO (15:08)
--- NOTE | 2019-04-17 15:08 | NUR ---
SPOKE WITH THE PATIENT ABOUT HIS MEDICATIONS. WE WENT OVER THE EXT MED HX AND HE LISTED HIS OTC MEDS. HIS POTASSIUM IS FILLED #90 FOR 30 DAYS HOWEVER HE STATES HE ONLY TAKES IT BID.
--- NOTE | 2019-04-17 15:17 | Diagnostic Imaging Report ---
PROCEDURE: MR imaging of the brain with and without contrast. TECHNIQUE: Multiplanar, multisequence MR imaging of the brain was performed with and without contrast. INDICATION: TIA. COMPARISON: CT head without contrast 04/17/2019. FINDINGS: Advanced generalized cerebral and cerebellar parenchymal volume loss. Moderate nonspecific T2 hyperintensities in the supratentorial white matter, presumed leukoaraiosis. No restricted water diffusion or hemosiderin deposition. No abnormal intracranial enhancement. Normal morphology including the major midline structures, sella, posterior fossa, and cerebellopontine angle. Postoperative changes in the globes. Normal intracranial flow voids. No hydrocephalus or extra-axial fluid collections. The paranasal sinuses and mastoids are clear. Normal bone marrow signal. IMPRESSION: 1. Advanced generalized parenchymal volume loss and moderate leukoaraiosis likely age appropriate. 2. No acute intracranial MRI findings. Dictated by: Dictated on workstation # [id number]
[2019-04-17] MEDS ORDERED: MECL-106 PO (15:28)
--- OUTSIDE RECORDS SUMMARY | 2019-04-17 17:03 | XMS REPORT | Continuity of Care Document ---
Author Organization Unknown Address Unknown Allergies Active Description Code Type Severity Reaction Onset Reported/Identified Relationship to Patient Clinical Status Yes No Known Drug Allergies [id number] Drug Allergy Unknown N/A 09/25/2012 Yes codeine [id number] Drug Allergy Unknown itching 01/13/2019 Medications There [...] ROJO DO Ot E86.0 DEHYDRATION 01/13/2019 ESME ROJO DO Ot I10 ESSENTIAL (PRIMARY) HYPERTENSION 01/13/2019 [...] Status Pt. Type Provider Facility Loc./Unit Complaint [id number] 01/13/2019 20:33:00 01/13/2019 23:56:00 DIS Emergency ESME ROJO DO [facility] ER FS HIGH HEART RATE, SOB, WEAK [id number] 01/05/2014 09:33:00 01/05/2014 23:59:59 CLS Preadmit ANASTASIIA BALL [facility] FS [id number] 10/06/2013 10:30:00 10/06/2013 23:59:59 CLS Outpatient [id number] 07/07/2013 13:24:00 07/07/2013 23:59:59 CLS Outpatient [id number] 04/07/2013 10:59:00 04/07/2013 23:59:59 CLS Outpatient [id number] 04/17/2019 11:20:00 Document Registration
[2019-04-17 19:00] VITALS: BP 116/56
[2019-04-17] MEDS ORDERED: NON-FORMULARY MEDICATION 1 EA EA (Diphenhydramine HCl (Benadryl) 25 MG) PO PRN (20:30)
[2019-04-17] MEDS ORDERED: NON-FORMULARY MEDICATION 1 EA EA (Acetaminophen (Acetaminophen Extra Strength) 500 MG) PO PRN (20:30)
[2019-04-17] MEDS ORDERED: MECLIZINE 25 MG (ANTIVERT) TAB PO PRN (20:30)
[2019-04-17] MEDS: APIXABAN 5 MG (ELIQUIS) TABLET PO SCH (20:42)
[2019-04-17] MEDS: FLECAINIDE 100 MG (TAMBOCOR) TAB PO SCH (20:42)
[2019-04-17] MEDS: SENNA W/DOCUSATE (SENOKOT S) TABLET PO SCH (20:42)
[2019-04-17] MEDS: PANTOPRAZOLE 40 MG (PROTONIX) TAB PO SCH (20:52)
[2019-04-17] MEDS ORDERED: NON-FORMULARY MEDICATION 1 EA EA (Flecainide Acetate 100 MG) PO SCH (21:00)
[2019-04-17] MEDS ORDERED: NON-FORMULARY MEDICATION 1 EA EA (Temazepam 30 MG) PO SCH (21:00)
[2019-04-17] MEDS ORDERED: TEMAZEPAM 15 MG (RESTORIL) CAP ONE (21:29)
[2019-04-17] MEDS ORDERED: diphenhydrAMINE 25 MG TAB (BENADRYL) PO PRN (21:30)
[2019-04-18] VITALS: BP 136/63
[2019-04-18 04:00] VITALS: BP 129/60
[2019-04-18] MEDS ORDERED: MULTIVIT W/MINERALS TAB (THERAGRAN M) PO SCH (07:00)
[2019-04-18] MEDS ORDERED: KCL 20 MEQ TAB (K-DUR) PO SCH (07:00)
[2019-04-18] MEDS: PANTOPRAZOLE 40 MG (PROTONIX) TAB PO SCH (07:05)
[2019-04-18 08:00] VITALS: BP 121/69
[2019-04-18] MEDS ORDERED: ASCORBIC ACID (VIT C) 500 MG TABLET PO SCH (08:00)
[2019-04-18] MEDS: FLECAINIDE 100 MG (TAMBOCOR) TAB PO SCH (08:06)
[2019-04-18] MEDS: APIXABAN 5 MG (ELIQUIS) TABLET PO SCH (08:06)
[2019-04-18] MEDS: SENNA W/DOCUSATE (SENOKOT S) TABLET PO SCH (08:09)
[2019-04-18] MEDS ORDERED: DIGOXIN 0.125 MG (LANOXIN) TAB PO SCH (09:00)
[2019-04-18] MEDS ORDERED: HYDROCHLOROTHIAZIDE 12.5 MG (HCTZ) CAP PO SCH (09:00)
[2019-04-18] MEDS ORDERED: NON-FORMULARY MEDICATION 1 EA EA (Amlodipine Besylate 10 MG) PO SCH (09:00)
[2019-04-18] MEDS ORDERED: NON-FORMULARY MEDICATION 1 EA EA (Lisinopril 2.5 MG) PO SCH (09:00)
[2019-04-18] MEDS ORDERED: amLODIPine 10 MG (NORVASC) TAB PO SCH (09:00)
[2019-04-18] MEDS ORDERED: FERROUS SULF 325 MG (IRON) TAB PO SCH (09:00)
[2019-04-18] MEDS ORDERED: lisINopril 5 MG (PRINIVIL) TABLET PO SCH (09:00)
[2019-04-18] MEDS ORDERED: NON-FORMULARY MEDICATION 1 EA EA (Metformin HCl 500 MG) PO SCH (09:00)
[2019-04-18] MEDS ORDERED: NON-FORMULARY MEDICATION 1 EA EA (Hydrochlorothiazide 12.5 MG) PO SCH (09:00)
[2019-04-18] MEDS ORDERED: metFORMIN 500 MG (GLUCOPHAGE) TAB PO SCH (09:00)
--- NOTE | 2019-04-18 10:20 | Consultation-Cardiology ---
HPI-Cardiology Cardiology Consultation Date of Consultation 04/18/19 Date of Admission Time Seen by Provider: 10:15 Indication: TIA HPI 78 years old gentleman with history of paroxysmal atrial fibrillation, hypertension hyperlipidemia. Patient was in his usual state of health until yesterday afternoon when he had a sudden onset of feeling dizziness and double vision, felt numb and weak in his legs. Sat for about an hour and reported improvement in his symptoms, denied any chest pain. No syncope or near syncopal episodes. No claudications. Home Medications & Allergies Allergies: Coded Allergies: codeine (Verified Allergy, Unknown, itching, 04/17/19) Home Medication List Reviewed: Yes KBU-[id number]-Lwhtdt Hx Patient Social History Marital Status: Employed/Student: retired Alcohol Use: Denies Use Recreational Drug Use: No Smoking Status: Never a Smoker 2nd Hand Smoke Exposure: No Recent Foreign Travel: No Recent Infectious Disease Expo: No Recent Hopitalizations: No Past Medical History described below Family Medical History Family Medical Hx noncontributory to his current condition Review of Systems-General Review of Systems Constitutional: no symptoms reported, see HPI EENTM: see HPI, double vision Respiratory: see HPI; No cough, No dyspnea on exertion, No hemoptysis, No orthopnea, No phlegm, No short of breath, No stridor, No wheezing, No other Cardiovascular: see HPI; No chest pain, No edema, No Hx of Intervention, No palpitations, No syncope, No vascular heart diseas, No other Gastrointestinal: no symptoms reported, see HPI Genitourinary: no symptoms reported, see HPI Musculoskeletal: no symptoms reported, see HPI Skin: no symptoms reported, see HPI Psychiatric/Neurological: See HPI, Paresthesia (perioral), Other (b/l legs felt heavy, difficulty walking) Reviewed Test Results Reviewed Test Results Lab Laboratory Tests Test 04/17/19 10:45 04/17/19 11:43 Range/Units White Blood Count 7.2 4.3-11.0 10^3/uL Red Blood Count 4.47 4.35-5.85 10^6/uL Hemoglobin 13.6 13.3-17.7 G/DL Hematocrit 41 40-54 % Mean Corpuscular Volume 91 80-99 FL Mean Corpuscular Hemoglobin 30 25-34 PG Mean Corpuscular Hemoglobin Concent 34 32-36 G/DL Red Cell Distribution Width 14.1 10.0-14.5 % Platelet Count 229 130-400 10^3/uL Mean Platelet Volume 10.4 7.4-10.4 FL Neutrophils (%) (Auto) 75 42-75 % Lymphocytes (%) (Auto) 13 12-44 % Monocytes (%) (Auto) 10 0-12 % Eosinophils (%) (Auto) 2 0-10 % Basophils (%) (Auto) 0 0-10 % Neutrophils # (Auto) 5.4 1.8-7.8 X 10^3 Lymphocytes # (Auto) 0.9 L 1.0-4.0 X 10^3 Monocytes # (Auto) 0.7 0.0-1.0 X 10^3 Eosinophils # (Auto) 0.1 0.0-0.3 10^3/uL Basophils # (Auto) 0.0 0.0-0.1 10^3/uL Sodium Level 136 135-145 MMOL/L Potassium Level 4.3 3.6-5.0 MMOL/L Chloride Level 98 98-107 MMOL/L Carbon Dioxide Level 24 21-32 MMOL/L Anion Gap 14 5-14 MMOL/L Blood Urea Nitrogen 20 H 7-18 MG/DL Creatinine 1.13 0.60-1.30 MG/DL Estimat Glomerular Filtration Rate > 60 BUN/Creatinine Ratio 18 Glucose Level 147 H 70-105 MG/DL Calcium Level 9.6 8.5-10.1 MG/DL Corrected Calcium 9.3 8.5-10.1 MG/DL Total Bilirubin 0.4 0.1-1.0 MG/DL Aspartate Amino Transf (AST/SGOT) 22 5-34 U/L Alanine Aminotransferase (ALT/SGPT) 18 0-55 U/L Alkaline Phosphatase 64 40-136 U/L Creatine Kinase MB 2.3 <6.6 NG/ML Troponin T 17 H <=15 NG/L Pro-B-Type Natriuretic Peptide 62.0 <75.0 PG/ML Total Protein 7.3 6.4-8.2 GM/DL Albumin 4.4 3.2-4.5 GM/DL Urine Color YELLOW Urine Clarity CLEAR Urine pH 5.5 5-9 Urine Specific [place] 1.015 L 1.016-1.022 Urine Protein NEGATIVE NEGATIVE Urine Glucose (UA) NEGATIVE NEGATIVE Urine Ketones NEGATIVE NEGATIVE Urine Nitrite NEGATIVE NEGATIVE Urine Bilirubin NEGATIVE NEGATIVE Urine Urobilinogen 0.2 NORMAL MG/DL Urine Leukocyte Esterase NEGATIVE NEGATIVE Urine RBC (Auto) NEGATIVE NEGATIVE Urine RBC 0-2 /HPF Urine WBC 0-2 /HPF Urine Squamous Epithelial Cells 0-2 /HPF Urine Crystals NONE /LPF Urine Bacteria NEGATIVE /HPF Urine Casts PRESENT /LPF Urine Hyaline Casts 0-2 H /LPF Urine Mucus FEW /LPF Urine Culture Indicated NO Physical Exam Physical Exam Vital Signs Vital Signs - First Documented 04/17/19 04/17/19 10:35 20:00 Temp 97.8 Pulse 69 Resp 16 B/P (MAP) 152/63 (92) Pulse Ox 97 O2 Delivery Room Air FiO2 21 Capillary Refill : Less Than 3 Seconds Height, Weight, BMI Height: 5'10.00" Weight: 185lbs. 8.0oz. 84.817667ei; 26.6 BMI Method:Stated General Appearance: No Apparent Distress, WD/WN Eyes: Bilateral Eye Normal Inspection, Bilateral Eye PERRL, Bilateral Eye EOMI HEENT: PERRL/EOMI, Normal ENT Inspection, Pharynx Normal Neck: Full Range of Motion, Normal Inspection, Non Tender, Supple Respiratory: Chest Non Tender, Lungs Clear, Normal Breath Sounds, No Accessory Muscle Use, No Respiratory Distress Cardiovascular: Regular Rate, Rhythm, No Edema, No Gallop, No JVD Gastrointestinal: Normal Bowel Sounds, No Organomegaly, No Pulsatile Mass, Non Tender, Soft, Other (colostomy present) Back: Normal Inspection, No CVA Tenderness, No Vertebral Tenderness Extremity: Normal Capillary Refill, Normal Inspection, Normal Range of Motion, Non Tender, No Calf Tenderness Neurologic/Psychiatric: Alert, Oriented x3, No Motor/Sensory Deficits, Normal Mood/Affect, hand potter II-XII Norm as Tested Skin: Normal Color, Warm/Dry Lymphatic: No Adenopathy A/P-Cardiology Admission Diagnosis TIA Paroxysmal atrial fibrillation Hypertension Hyperlipidemia Assessment/Plan TIA, reporting full improvement, no focal deficit, MRI of the head was negative, patient is maintained on Eliquis for atrial fibrillation. I will add aspirin 81 mg daily, continue to monitor next Paroxysmal atrial fibrillation, currently in sinus rhythm, EKG from the emergency room in [place] was reported as atrial fibrillation, my evaluation of that EKG showing sinus rhythm with artifacts and APCs. Has been on Eliquis 5 mg twice daily to reduce the risk of stroke. Add aspirin, has been following with Dr. Royal at , discussed the possibility of having a loop recorder implanted at . Hypertension, controlled, continue to monitor blood pressure History of lung cancer, had lobectomy done in 2017 and received 3 rounds of chemotherapy, there is a new suspicious mass noted and he is scheduled for biopsy, educated about the need of holding aspirin for 5-7 days and holding Eliquis for 48 hours prior to the biopsy. Diabetes mellitus, followed and managed by primary care physician History of Whipple surgery History of multiple back surgeries. History of tobaccoism stopped smoking in the 90s Clinical Quality Measures DVT/VTE Risk/Contraindication: Risk Factor Score Per Nursin RFS Level Per Nursing on Admit: 2=Moderate LISETH HERNANDEZ MD Apr 18, 2019 10:20
[2019-04-18] MEDS ORDERED: ASPI-983 PO (12:00)
--- NOTE | 2019-04-18 12:02 | Short Stay Summary-Hospitalist ---
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 He had never had any issues like this before and he does have a cardiac history so he was admitted placed on telemetry and cardiology was consulted and MRI obtained showed no evidence of any type of stroke. He will need a carotid ultrasound as an outpatient and he is currently undergoing plans for lung biopsy after he had had a history of lung cancer with a nodule resected successfully several years ago but noted a mass has recurred and he receives most of his specialty care at [facility]. Overall he feels comfortable going home on a baby aspirin in addition to all the rest of his cardiac meds and all in agreement with returning if anything changes. Source: patient, family, RN/MD Exam Limitations: no limitations Date Seen 04/18/19 Time Seen by a Provider: 11:00 Attending Physician Alisa Garay DO [facility] Referring Physician Date of Admission Apr 17, 2019 at 12:51 Home Medications & Allergies Home Medications Reviewed patient Home Medication Reconciliation performed by pharmacy medication reconciliations trace evidence technician and/or nursing. Patients Allergies have been reviewed. Allergies Allergies Coded Allergies codeine (Verified Allergy, Unknown, itching, 04/17/19) Past Bprdnis-Utagbf-Dgnamu Hx Past Med/Social Hx: Reviewed Nursing Past Med/Soc Hx, Reviewed and Corrections made Patient Social History Marrital Status: Employed/Student: retired Alcohol Use: Denies Use Recreational Drug Use: No Smoking Status: Never a Smoker 2nd Hand Smoke Exposure: No Recent Foreign Travel: No Contact w/other who traveled: No Recent Hopitalizations: No Recent Infectious Disease Expo: No Seasonal Allergies Seasonal Allergies: No Past Medical History Surgeries: Abdominal, Eye Surgery, Joint Replacement, Lobectomy, Prostatectomy Cardiac: Atrial Fibrillation, Irregular Heartbeat, Palpitations Genitourinary: Prostate Problems, Kidney Stones Gastrointestinal: Liver Disease/Jaundice, Gastrointestinal Bleed Musculoskeletal: Arthritis HEENT: Cataract Cancer: Lung What Type of Treatment Did You: Surgical Intervention History of Blood Disorders: No Review of Systems Constitutional: see HPI, malaise EENTM: mouth pain, mouth swelling Respiratory: no symptoms reported Cardiovascular: no symptoms reported Gastrointestinal: no symptoms reported Genitourinary: no symptoms reported Musculoskeletal: no symptoms reported Skin: no symptoms reported Psychiatric/Neurological: No Symptoms Reported All Other Systems Reviewed Negative Unless Noted: Yes Physical Exam Physical Exam Vital Signs Vital Signs - First Documented 04/17/19 04/17/19 10:35 20:00 Temp 97.8 Pulse 69 Resp 16 B/P (MAP) 152/63 (92) Pulse Ox 97 O2 Delivery Room Air FiO2 21 Capillary Refill : Less Than 3 Seconds Height, Weight, BMI Height: 5'10.00" Weight: 185lbs. 8.0oz. 84.552830jp; 26.6 BMI Method:Stated General Appearance: No Apparent Distress, WD/WN, Chronically ill Eyes: Bilateral Eye Normal Inspection, Bilateral Eye PERRL, Bilateral Eye EOMI HEENT: PERRL/EOMI, Normal ENT Inspection, Pharynx Normal Neck: Full Range of Motion, Normal Inspection, Non Tender, Supple Respiratory: Chest Non Tender, Lungs Clear, Normal Breath Sounds, No Accessory Muscle Use, No Respiratory Distress Cardiovascular: Regular Rate, Rhythm, No Edema, No Gallop, No JVD Gastrointestinal: Normal Bowel Sounds, No Organomegaly, No Pulsatile Mass, Non Tender, Soft, Other (colostomy present) Back: Normal Inspection, No CVA Tenderness, No Vertebral Tenderness Extremity: Normal Capillary Refill, Normal Inspection, Normal Range of Motion, Non Tender, No Calf Tenderness Neurologic/Psychiatric: Alert, Oriented x3, No Motor/Sensory Deficits, Normal Mood/Affect, 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 Short Stay Diagnosis Discharge Diagnosis-Short Stay Admission Diagnosis Assessment: Transient neurological deficit unexplained but ruled out stroke with MRI Chronic atrial fibrillation Oral anticoagulation Lung cancer Hypertension BPH Final Discharge Diagnosis Assessment: Transient neurological deficit unexplained but ruled out stroke with MRI Chronic atrial fibrillation Oral anticoagulation Lung cancer Hypertension BPH Conclusion Plan Plan: Discharge home Aspirin prescribed Resume all home meds Present up to cardiology at to obtain carotid ultrasound and further workup Diagnosis/Problems Diagnosis/Problems (1) Transient neurological symptoms Status: Resolved Resolution Date/Time: 04/18/19 @ 12:45 (2) Atrial fibrillation Status: Chronic Qualifiers: Qualified Codes: I48.2 - Chronic atrial fibrillation (3) Lung cancer Status: Chronic Qualifiers: Qualified Codes: C34.92 - Malignant neoplasm of unspecified part of left bronchus or lung Clinical Quality Measures DVT/VTE Risk/Contraindication: Risk Factor Score Per Nursin RFS Level Per Nursing on Admit: 2=Moderate ALISA GARAY DO Apr 18, 2019 12:02
[2019-04-18] MEDS ORDERED: ASPIRIN E.C. 81 MG (ECOTRIN) TAB PO ONE (12:15)
[2019-04-18] MEDS ORDERED: TEMAZEPAM 15 MG (RESTORIL) CAP PO SCH (21:00)
== END 2019-04-18 12:30 | disposition home or self-care (01) | DRG 93 ==
LOC: EDUNIT# 10:30 → ER FS 10:32 → 4TH 12:51 → UNDOADMOB 12:51 → OBSVTOIN 04-18 12:05
PROVIDERS: ADMIT Internal Medicine; ATTEND Internal Medicine
DX: R29.818 Other symptoms and signs involving the nervous system (principal); I48.0 Paroxysmal atrial fibrillation; I10 Essential (primary) hypertension; N40.0 Benign prostatic hyperplasia without lower urinary tract symptoms; K76.9 Liver disease, unspecified; H26.9 Unspecified cataract; E78.5 Hyperlipidemia, unspecified; E11.9 Type 2 diabetes mellitus without complications; R91.8 Other nonspecific abnormal finding of lung field; Z85.118 Personal history of other malignant neoplasm of bronchus and lung; Z87.19 Personal history of other diseases of the digestive system; Z92.21 Personal history of antineoplastic chemotherapy; Z87.891 Personal history of nicotine dependence; Z87.442 Personal history of urinary calculi; Z96.9 Presence of functional implant, unspecified; Z88.5 Allergy status to narcotic agent; Z79.01 Long term (current) use of anticoagulants
CPT/HCPCS: 36415; 70450; 70553; 71045; 80053; 81000; 82553; 83880; 84484; 85025; 93005; 93306; G0378

== ENCOUNTER 2019-05-08 01:54 | Emergency (ER) | payer MEDICARE, OTHER ==
[~2019-05-08] VITALS: Ht 177.8 cm; Wt 79.4 kg
[~2019-05-08 01:54] MED LIST changes: +ACET-168 PO; +AMLO10TA7 PO; +APIX5TAB PO; +ASCO500T6 PO; +ASPI-983 PO; +DIGO125T PO; +DIPH25CA79 PO; +FERR-84 PO; +FLEC100T PO; +HYDR-3812 PO; +HYDR12.56 PO; +LISI2.5T PO; +MECL-106 PO; +METF-397 PO; +MULT1TAB69 PO; +PANT40TA3 PO; +POTA20TA15 PO; +TEMA30CA PO
--- OUTSIDE RECORDS SUMMARY | 2019-05-08 01:59 | XMS REPORT | Continuity of Care Document ---
Author Organization Unknown Address Unknown Allergies Active Description Code Type Severity Reaction Onset Reported/Identified Relationship to Patient Clinical Status Yes No Known Drug Allergies [id number] Drug Allergy Unknown N/A 09/25/2012 Yes codeine [id number] Drug Allergy Unknown itching 04/17/2019 Medications There is no data. Problems Date [...] Z87.442 PERSONAL HISTORY OF URINARY CALCULI 01/13/2019 PATRICK ROJO DOED T Ot Z88.5 ALLERGY STATUS TO NARCOTIC AGENT STATUS 01/13/2019 DARREL DEWEYESME Ot Z98.890 OTHER SPECIFIED POSTPROCEDURAL STATES 04/17/2019 ANASTASIIA BALL Ot 585.3 CHRONIC KIDNEY DISEASE, STAGE III (MODER 04/17/2019 ANASTASIIA BALL Ot V10.09 HX OF GI MALIGNANCY NEC 04/17/2019 ANASTASIIA BALL Ot V44.2 ILEOSTOMY STATUS 04/17/2019 ANASTASIIA BALL Ot V58.69 OTH MED,LT,CURRENT USE 04/17/2019 ANASTASIIA BALL Ot V67.09 SURGERY FOLLOW-UP, OTHER SURGERY 04/18/2019 ALISA DIALLO DO Ot E11.9 TYPE 2 DIABETES MELLITUS WITHOUT COMPLIC 04/18/2019 MIGUEL DIALLO DOI Ot E78.5 HYPERLIPIDEMIA, UNSPECIFIED 04/18/2019 IMANI DEWEY ALISA Ot H26.9 UNSPECIFIED CATARACT 04/18/2019 IMANI DEWEY ALISA Ot I10 ESSENTIAL (PRIMARY) HYPERTENSION 04/18/2019 IMANI DEWEY ALISA Ot I48.0 PAROXYSMAL ATRIAL FIBRILLATION 04/18/2019 IMANI DEWEY ALISA Ot K76.9 LIVER DISEASE, UNSPECIFIED 04/18/2019 IMANI DEWEY ALISA Ot N40.0 BENIGN PROSTATIC HYPERPLASIA WITHOUT LOW 04/18/2019 IMANI DEWEY ALISA Ot R29.818 OTHER SYMPTOMS AND SIGNS INVOLVING THE N 04/18/2019 IMANI DEWEY ALISA Ot R91.8 OTHER NONSPECIFIC ABNORMAL FINDING OF SANJAY 04/18/2019 ALISA DIALLO DO Ot Z79.01 RETIREMENT (CURRENT) USE OF ANTICOAGULANT 04/18/2019 MIGUEL DIALLO DOI Ot Z85.118 PERSONAL HISTORY OF MALIGNANT NEOPLASM O 04/18/2019 IMANI DEWEY ALISA Ot Z87.19 PERSONAL HISTORY OF OTHER DISEASES OF TH 04/18/2019 ALISA DIALLO DO Ot Z87.442 PERSONAL HISTORY OF URINARY CALCULI 04/18/2019 MIGUEL DIALLO DOI Ot Z87.891 PERSONAL HISTORY OF NICOTINE DEPENDENCE 04/18/2019 MIGUEL DIALLO DOI Ot Z88.5 ALLERGY STATUS TO NARCOTIC AGENT STATUS 04/18/2019 MIGUEL DIALLO DOI Ot Z92.21 PERSONAL HISTORY OF ANTINEOPLASTIC CHEMO 04/18/2019 DIALLO DO ALISA Ot 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, UNSPECIF 04/18/2019 DIALLO DO ALISA Ot E11.9 TYPE 2 DIABETES MELLITUS WITHOUT COMPLIC 04/18/2019 DIALLO DO ALISA Ot E78.5 HYPERLIPIDEMIA, UNSPECIFIED 04/18/2019 DIALLO DO ALISA Ot H26.9 UNSPECIFIED CATARACT 04/18/2019 DIALLO DO ALISA Ot I10 ESSENTIAL (PRIMARY) HYPERTENSION 04/18/2019 DIALLO DO ALISA Ot I48.0 PAROXYSMAL ATRIAL FIBRILLATION 04/18/2019 DIALLO DO ALISA Ot K76.9 LIVER DISEASE, UNSPECIFIED 04/18/2019 DIALLO DO ALISA Ot N40.0 BENIGN PROSTATIC HYPERPLASIA WITHOUT LOW 04/18/2019 DIALLO DO ALISA Ot R29.818 OTHER SYMPTOMS AND SIGNS INVOLVING THE N 04/18/2019 IMANI DEWEY ALISA Ot R91.8 OTHER NONSPECIFIC ABNORMAL FINDING OF SANJAY 04/18/2019 IMANI DEWEY ALISA Ot Z79.01 RETIREMENT (CURRENT) USE OF ANTICOAGULANT 04/18/2019 IMANI DEWEY ALISA Ot Z85.118 PERSONAL HISTORY OF MALIGNANT NEOPLASM O 04/18/2019 IMANI DEWEY ALISA Ot Z87.19 PERSONAL HISTORY OF OTHER DISEASES OF TH 04/18/2019 IMANI DEWEY ALISA Ot Z87.442 PERSONAL HISTORY OF URINARY CALCULI 04/18/2019 IMANI DEWEY ALISA Ot Z87.891 PERSONAL HISTORY OF NICOTINE DEPENDENCE 04/18/2019 IMANI DEWEY ALISA Ot Z88.5 ALLERGY STATUS TO NARCOTIC AGENT STATUS 04/18/2019 IMANI DEWEY ALISA Ot Z92.21 PERSONAL HISTORY OF ANTINEOPLASTIC CHEMO 04/18/2019 IMANI DEWEY ALISA Ot 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, UNSPECIF 04/20/2019 ANASTASIIA BALL Ot 585.3 CHRONIC KIDNEY DISEASE, STAGE III (MODER 04/20/2019 ANASTASIIA BALL Ot V10.09 HX OF GI MALIGNANCY NEC 04/20/2019 ANASTASIIA BALL Ot V44.2 ILEOSTOMY STATUS 04/20/2019 ANASTASIIA BALL Ot V58.69 OTH MED,LT,CURRENT USE 04/20/2019 ANASTASIIA BALL Ot V67.09 SURGERY FOLLOW-UP, OTHER SURGERY 04/28/2019 IMANI DEWEY ALISA Ot E11.9 TYPE 2 DIABETES MELLITUS WITHOUT COMPLIC 04/28/2019 MIGUEL DIALLO DOI Ot E78.5 HYPERLIPIDEMIA, UNSPECIFIED 04/28/2019 IMANI DEWEY ALISA Ot H26.9 UNSPECIFIED CATARACT 04/28/2019 IMANI DEWEY ALISA Ot I10 ESSENTIAL (PRIMARY) HYPERTENSION 04/28/2019 IMANI DEWEY AILSA Ot I48.0 PAROXYSMAL ATRIAL FIBRILLATION 04/28/2019 IMANI DEWEY ALISA Ot K76.9 LIVER DISEASE, UNSPECIFIED 04/28/2019 IMANI DEWEY ALISA Ot N40.0 BENIGN PROSTATIC HYPERPLASIA WITHOUT LOW 04/28/2019 IMANI DEWEY ALISA Ot R29.818 OTHER SYMPTOMS AND SIGNS INVOLVING THE N 04/28/2019 MIGUEL DIALLO DOI Ot R91.8 OTHER NONSPECIFIC ABNORMAL FINDING OF SANJAY 04/28/2019 MIGUEL DIALLO DOI Ot 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 04/28/2019 MIGUEL DIALLO DOI Ot Z85.118 PERSONAL HISTORY OF MALIGNANT NEOPLASM O 04/28/2019 IMANI DEWEY ALISA Ot Z87.19 PERSONAL HISTORY OF OTHER DISEASES OF TH 04/28/2019 IMANI DEWEY ALISA Ot Z87.442 PERSONAL HISTORY OF URINARY CALCULI 04/28/2019 MIGUEL DIALLO DOI Ot Z87.891 PERSONAL HISTORY OF NICOTINE DEPENDENCE 04/28/2019 IMANI DEWEY ALISA Ot Z88.5 ALLERGY STATUS TO NARCOTIC AGENT STATUS 04/28/2019 IMANI DEWEY ALISA Ot Z92.21 PERSONAL HISTORY OF ANTINEOPLASTIC CHEMO 04/28/2019 MIGUEL DIALLO DOI Ot 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, UNSPECIF 04/28/2019 MIGUEL DIALLO DOI Ot E11.9 TYPE 2 DIABETES MELLITUS WITHOUT COMPLIC 04/28/2019 ALISA DIALLO DO Ot E78.5 HYPERLIPIDEMIA, UNSPECIFIED 04/28/2019 IMANI DEWEY ALISA Ot H26.9 UNSPECIFIED CATARACT 04/28/2019 IMANI DEWEY ALISA Ot I10 ESSENTIAL (PRIMARY) HYPERTENSION 04/28/2019 IMANI DEWEY ALISA Ot I48.0 PAROXYSMAL ATRIAL FIBRILLATION 04/28/2019 IMANI DEWEY ALISA Ot K76.9 LIVER DISEASE, UNSPECIFIED 04/28/2019 MIGUEL DIALLO DOI Ot N40.0 BENIGN PROSTATIC HYPERPLASIA WITHOUT LOW 04/28/2019 MIGUEL DIALLO DOI Ot R29.818 OTHER SYMPTOMS AND SIGNS INVOLVING THE N 04/28/2019 MIGUEL DIALLO DOI Ot R91.8 OTHER NONSPECIFIC ABNORMAL FINDING OF SANJAY 04/28/2019 MIGUEL DIALLO DOI Ot 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 Results Test [...] 04/17/19 10:45 PROBNP FS 62.0 pg/mL <75.0 Serum or plasma creatine kinase MB measurement (enzymatic activity/volume) - 04/17/19 10:45 Serum or plasma creatine kinase MB measurement (enzymatic activity/volume) 2.3 ng/mL <6.6 Complete urinalysis with reflex to culture - [...] urine sediment by light microscopy 0-2 NRG Serum or plasma troponin i.cardiac measurement (mass/volume) - 04/18/19 11:09 Serum or plasma troponin i.cardiac measurement (mass/volume) 0.039 ng/mL <0.028 Encounters ACCT No. Visit Date/Time Discharge Status Pt. Type Provider Facility Loc./Unit Complaint [id number] 04/17/2019 15:00:00 04/18/2019 12:01:00 DIS Outpatient ALISA DIALLO DO [facility] 4TH TIA ELEVATED TROPONIN [id number] 01/13/2019 20:33:00 01/13/2019 23:56:00 DIS Emergency ESME ROJO DO [facility] ER FS HIGH HEART RATE, SOB, WEAK [id number] 01/05/2014 09:33:00 01/05/2014 23:59:59 CLS Preadmit ANASTASIIA BALL [facility] FS [id number] 10/06/2013 10:30:00 10/06/2013 23:59:59 CLS Outpatient [id number] 07/07/2013 13:24:00 07/07/2013 23:59:59 CLS Outpatient [id number] 04/07/2013 10:59:00 04/07/2013 23:59:59 CLS Outpatient
[2019-05-08] MEDS ORDERED: RT-ALBUTEROL/IPRATROPIUM 3 ML (DUONEB) VIAL INH ONE (02:15)
--- NOTE | 2019-05-08 02:17 | ED Respiratory ---
General Chief Complaint: Respiratory Problems Stated Complaint: SOB Source: patient, spouse History of Present Illness Date Seen by Provider: May 08, 2019 Time Seen by Provider: 01:58 Initial Comments 78 yo M presenting with acute shortness of breath that has worsened since having a coughing fit and coughing up some phlegm and blood this afternoon. He was just discharged from [facility] yesterday afternoon. He had a biopsy done with interventional radiology of a mass fluid in his right upper lobe. After this he did have a small leak causing a pneumothorax that he required a chest tube to manage. They removed the chest tube and did serial chest x-rays to confirm his mom was staying up. He was discharged yesterday afternoon had been doing well until this evening. He had a coughing fit and states that he coughed up a lot of phlegm and some blood and then since then he's been having increasing shortness of breath. He denies any fever or chills. He denies having any pain in his [address] He has been wheezing and having severe shortness of breath. He does have a history of lung cancer as well as atrial fibrillation. Allergies and Home Medications Allergies Coded Allergies: codeine (Verified Allergy, Unknown, itching, 05/08/19) Home Medications Acetaminophen 500 Mg Tablet, 500-1,000 MG PO Q6H PRN for PAIN-MILD, (Reported) Amlodipine Besylate 10 Mg Tablet, 10 MG PO DAILY, (Reported) Apixaban 5 Mg Tablet, 5 MG PO BID, (Reported) Ascorbic Acid 500 Mg Tablet, 500 MG PO DAILY, (Reported) Aspirin 81 Mg Tablet.dr, 81 MG PO DAILY Prescribed by: ALISA DIALLO on 04/18/19 1200 Digoxin 125 Mcg Tablet, 125 MCG PO DAILY, (Reported) Diphenhydramine HCl 25 Mg Capsule, 25 MG PO BID PRN for ITCHING, (Reported) Ferrous Sulfate 325 Mg Tablet, 325 MG PO DAILY, (Reported) Flecainide Acetate 100 Mg Tablet, 100 MG PO BID, (Reported) Hydrochlorothiazide 12.5 Mg Tablet, 12.5 MG PO DAILY, (Reported) Hydrocodone/Acetaminophen 1 Each Tablet, 1 TAB PO BID PRN for PAIN-MODERATE, (Reported) Lisinopril 2.5 Mg Tablet, 2.5 MG PO DAILY, (Reported) Meclizine HCl 25 Mg Tablet, 25 MG PO TID PRN for DIZZINESS, (Reported) Metformin HCl 500 Mg Tablet, 500 MG PO DAILY, (Reported) Multivitamin 1 Each Tablet, 1 TAB PO DAILY, (Reported) Pantoprazole Sodium 40 Mg Tablet.dr, 40 MG PO BID, (Reported) Potassium Chloride 20 Meq Tab.er.prt, 20 MEQ PO BID, (Reported) Temazepam 30 Mg Capsule, 30 MG PO HS, (Reported) Patient Home Medication List Home Medication List Reviewed: Yes Review of Systems Review of Systems Constitutional: No chills, No fever EENTM: no symptoms reported Respiratory: cough, hemoptysis, phlegm, short of breath Cardiovascular: No chest pain, No palpitations Gastrointestinal: no symptoms reported Genitourinary: no symptoms reported Musculoskeletal: no symptoms reported Skin: no symptoms reported Psychiatric/Neurological: No Symptoms Reported Hematologic/Lymphatic: No Symptoms Reported Past Khmckzg-Qifzpp-Nacppo Hx Past Med/Social Hx: Reviewed Nursing Past Med/Soc Hx Patient Social History 2nd Hand Smoke Exposure: No Recent Foreign Travel: No Contact w/Someone Who Travel: No Recent Hopitalizations: No Seasonal Allergies Seasonal Allergies: No Past Medical History Surgeries: Yes (spinal surgery, ileostomy, whipple-ampullary mass) Abdominal, Eye Surgery, Joint Replacement, Lobectomy, Prostatectomy Respiratory: Yes (Right lower lobectomy) Cardiac: Yes Atrial Fibrillation, Irregular Heartbeat, Palpitations Neurological: No Genitourinary: Yes Prostate Problems, Kidney Stones Gastrointestinal: Yes (Colostomy) Liver Disease/Jaundice, Gastrointestinal Bleed Musculoskeletal: Yes Arthritis Endocrine: No HEENT: Yes Cataract Cancer: Yes Lung What Type of Treatment Did You: Surgical Intervention Psychosocial: No Integumentary: No Blood Disorders: No Physical Exam Vital Signs - First Documented 05/08/19 05/08/19 01:59 02:24 Temp 98.3 Pulse 77 Resp 23 B/P (MAP) 185/77 (113) Pulse Ox 97 O2 Delivery Nasal Cannula O2 Flow Rate 2.00 FiO2 97 Capillary Refill : Height: 5'10.00" Weight: 185lbs. 8.0oz. 84.053796lu; 26.6 BMI Method:Stated General Appearance: WD/WN, moderate distress (working hard to breath and wheezing) HEENT: pharynx normal Neck: supple, normal inspection Respiratory: respiratory distress, decreased breath sounds (on right side), accessory muscle use, wheezing, other (tender to palpation right upper chest where he has bandages present from recent procedures) Cardiovascular: normal peripheral pulses, regular rate, rhythm Gastrointestinal: normal bowel sounds, non tender, soft Extremities: normal range of motion, non-tender Neurologic/Psychiatric: alert, oriented x 3 Skin: normal color, warm/dry Progress/Results/Core Measures Suspected Sepsis SIRS Temperature: Pulse: Respiratory Rate: Laboratory Tests 05/08/19 02:06: White Blood Count 9.5 Blood Pressure / Mean: Laboratory Tests 05/08/19 02:06: Creatinine 1.13, Platelet Count 252, Total Bilirubin 0.4 Results/Orders Lab Results Laboratory Tests Test 05/08/19 02:06 Range/Units White Blood Count 9.5 4.3-11.0 10^3/uL Red Blood Count 4.71 4.35-5.85 10^6/uL Hemoglobin 14.1 13.3-17.7 G/DL Hematocrit 43 40-54 % Mean Corpuscular Volume 90 80-99 FL Mean Corpuscular Hemoglobin 30 25-34 PG Mean Corpuscular Hemoglobin Concent 33 32-36 G/DL Red Cell Distribution Width 13.0 10.0-14.5 % Platelet Count 252 130-400 10^3/uL Mean Platelet Volume 10.7 H 7.4-10.4 FL Neutrophils (%) (Auto) 80 H 42-75 % Lymphocytes (%) (Auto) 11 L 12-44 % Monocytes (%) (Auto) 7 0-12 % Eosinophils (%) (Auto) 2 0-10 % Basophils (%) (Auto) 0 0-10 % Neutrophils # (Auto) 7.5 1.8-7.8 X 10^3 Lymphocytes # (Auto) 1.1 1.0-4.0 X 10^3 Monocytes # (Auto) 0.6 0.0-1.0 X 10^3 Eosinophils # (Auto) 0.2 0.0-0.3 10^3/uL Basophils # (Auto) 0.0 0.0-0.1 10^3/uL Sodium Level 135 135-145 MMOL/L Potassium Level 3.8 3.6-5.0 MMOL/L Chloride Level 94 L 98-107 MMOL/L Carbon Dioxide Level 25 21-32 MMOL/L Anion Gap 16 H 5-14 MMOL/L Blood Urea Nitrogen 17 7-18 MG/DL Creatinine 1.13 0.60-1.30 MG/DL Estimat Glomerular Filtration Rate > 60 BUN/Creatinine Ratio 15 Glucose Level 144 H 70-105 MG/DL Calcium Level 9.5 8.5-10.1 MG/DL Corrected Calcium 9.1 8.5-10.1 MG/DL Total Bilirubin 0.4 0.1-1.0 MG/DL Aspartate Amino Transf (AST/SGOT) 20 5-34 U/L Alanine Aminotransferase (ALT/SGPT) 16 0-55 U/L Alkaline Phosphatase 73 40-136 U/L Total Protein 7.8 6.4-8.2 GM/DL Albumin 4.5 3.2-4.5 GM/DL My Orders Orders - ONEL GEE MD Cbc With Automated Diff (05/08/19 02:10) Comprehensive Metabolic Panel (05/08/19 02:10) Chest 1 View Ap/Pa Only (05/08/19 02:10) Albuterol/Ipra Inhalation Soln (Duoneb I (05/08/19 02:15) Ekg Tracing (05/08/19 02:10) O2 (05/08/19 02:10) Ed Iv/Invasive Line Start (05/08/19 02:10) Monitor-Rhythm Ecg Trace Only (05/08/19 02:10) Svn Small Volume Nebulizer (05/08/19 02:10) Fentanyl Injection (Sublimaze Injection (05/08/19 03:15) Medications Given in ED Current Medications Medications Dose Ordered Sig/Mark Route Start Time Stop Time Status Last Admin Dose Admin Albuterol/ Ipratropium 3 ml ONCE ONCE INH 05/08/19 02:15 05/08/19 02:16 DC 05/08/19 02:17 3 ML Fentanyl Citrate 50 mcg ONCE ONCE IVP 05/08/19 03:15 05/08/19 03:16 DC 05/08/19 03:19 50 MCG Vital Signs/I&O 05/08/19 05/08/19 05/08/19 05/08/19 01:59 02:17 02:24 03:38 Temp 98.3 97.5 Pulse 77 74 Resp 23 20 B/P (MAP) 185/77 (113) 160/68 (98) Pulse Ox 97 97 97 94 O2 Delivery Nasal Cannula Nasal Cannula Nasal Cannula Nasal Cannula O2 Flow Rate 2.00 2.00 2.00 3.00 FiO2 97 Capillary Refill : Progress Note #1: Progress Note With him having decreased breath sounds on the right and having of present pneumothorax will check a chest x-ray and basic labs. For his wheezing and upper airway sounds a duoneb treatment was given and this did help with his wheezing. Progress Note #2: Progress Note Chest x-ray does demonstrate any recurrent pneumothorax on the right side. This appears to be at least 30-40% of the lung on my review of his 1 view chest x- ray. We will place called to [facility] to initiate transfer the patient back to . Reviewed with the patient that a chest tube would be needed again. When I discussed with him the options of a large chest tube that is more traditionally placed versus the small pigtail chest tube that he had at he wanted to hold off and have the chest tube from . At this point he was hemodynamically stable and his oxygen staying up so I agreed to allow him to hold off for now. I did advise him that if he was getting any worse or having a sudden drop in his blood pressure or oxygen level that he would have to get the larger chest tube. Progress Note #3: Progress Note [id number] SOPHIA Osborn, from [place] was notified that the patient and started working on finding a bed and accepting physician. ECG Initial ECG Impression Date: May 08, 2019 Initial ECG Impression Time: 02:12 Initial ECG Rate: 77 Initial ECG Rhythm: Normal Sinus Initial ECG Intervals: Normal Initial ECG Comparisson: No Previous ECG Available Comment Normal sinus rhythm with heart rate of 77 bpm. He has a right axis deviation. His AK interval is 210 ms. His QT interval is 325 ms and a QT corrected interval of 368 ms. He has no [address] elevation. He does have global T-wave flattening. No prior EKG is immediately available for comparison. Diagnostic Imaging Diagonstic Imaging: Xray Plain Films/CT/US/NM/MRI: chest Comments On my review of his 1 view chest he has a Pneumothorax on right side involving at least 30-40% of the lung. Reviewed: Reviewed by Me Departure Impression Primary Impression: Pneumothorax of right lung after biopsy Disposition: 02 XFER SHT-TRM HOSP Condition: Stable Transfer Time Spoke to Accepting Phy: 03:16 Transfer Progress Notes spoke with Irena from Transfer center about the patient and she got in touch with the admitting provider, Dr. Maria Carvajal, and called back with his information at 0316. She stated she would call back with room assignment and for nursing report as soon as that was available. For now the patient was hoping to hold off on chest tube from here and get the smaller pigtail chest tube at unless he suddenly worsens. Transfer Facility: [facility] Method of Transfer: EMS Departure-Patient Inst. Referrals: [facility] (PCP) Primary Care Physician ROSMERY WADE APRN (Family) Primary Care Physician ONEL GEE MD May 08, 2019 02:17
[2019-05-08 02:31] LABS: BASOPHILS % (AUTO) 0 % (0-10); EOSINOPHILS % (AUTO) 2 % (0-10); HEMATOCRIT 43 % (40-54); HEMOGLOBIN 14.1 G/DL (13.3-17.7); LYMPHOCYTES % (AUTO) 11 % (12-44); MEAN CORPUSCULAR HEMOGLOBIN 30 PG (25-34); MEAN CORPUSCULAR HGB CONC 33 G/DL (32-36); MEAN CORPUSCULAR VOLUME 90 FL (80-99); MEAN PLATELET VOLUME 10.7 FL (7.4-10.4); MONOCYTES % (AUTO) 7 % (0-12); NEUTROPHILS % (AUTO) 80 % (42-75); PLATELET COUNT 252 10^3/uL (130-400); WHITE BLOOD COUNT 9.5 10^3/uL (4.3-11.0)
[2019-05-08 02:32] LABS: EOSINOPHILS # (AUTO) 0.2 10^3/uL (0.0-0.3); LYMPHOCYTES # (AUTO) 1.1 X 10^3 (1.0-4.0); MONOCYTES # (AUTO) 0.6 X 10^3 (0.0-1.0); NEUTROPHILS # (AUTO) 7.5 X 10^3 (1.8-7.8)
[2019-05-08 02:53] LABS: ALANINE AMINOTRANSFERASE 16 U/L (0-55); ALBUMIN 4.5 GM/DL (3.2-4.5); ALKALINE PHOSPHATASE 73 U/L (40-136); BILIRUBIN,TOTAL 0.4 MG/DL (0.1-1.0); BUN/CREATININE RATIO 15; CALCIUM 9.5 MG/DL (8.5-10.1); CARBON DIOXIDE 25 MMOL/L (21-32); CHLORIDE 94 MMOL/L (98-107); CREATININE SERUM 1.13 MG/DL (0.60-1.30); GFR ESTIMATED > 60; GLUCOSE 144 MG/DL (70-105); POTASSIUM 3.8 MMOL/L (3.6-5.0); SODIUM 135 MMOL/L (135-145); TOTAL PROTEIN 7.8 GM/DL (6.4-8.2)
--- NOTE | 2019-05-08 03:09 | NUR ---
PT. JUST REPORTED HE WAS STARTING TO HAVE SHOULDER AND BACK PAIN AND WAS REQUESTING PAIN MEDICATION. HE RATED IT A 4 ON THE 1-10 SCALE AND SAID HE ALWAYS HAS SOME SHOULDER AND BACK PAIN.
[2019-05-08] MEDS ORDERED: fentaNYL INJECTION 100 MCG/2 ML AMP IVP ONE (03:15)
[2019-05-08 03:38] VITALS: BP 160/68
--- NOTE | 2019-05-08 03:57 | Diagnostic Imaging Report ---
Indication: Pneumothorax Portable chest 2:17 AM There is a right pneumothorax measuring 5.5 cm apex. Lungs are clear. Impression: Right pneumothorax Dictated by: Dictated on workstation # [id number]
== END 2019-05-08 03:58 | disposition short-term general hospital (02) ==
LOC: EDUNIT# 01:54 → ER FS 01:55
DX: J95.811 Postprocedural pneumothorax (principal); I48.91 Unspecified atrial fibrillation; Z87.442 Personal history of urinary calculi; Z88.5 Allergy status to narcotic agent; Z79.82 Long term (current) use of aspirin; Z79.84 Long term (current) use of oral hypoglycemic drugs; Z93.2 Ileostomy status; Z93.3 Colostomy status; Z85.118 Personal history of other malignant neoplasm of bronchus and lung
CPT/HCPCS: 36415; 71045; 80053; 85025; 93005; 93041; 94640

== ENCOUNTER → 2020-03-31 | Outpatient (CLI) | payer MEDICARE, OTHER ==
[~2020-03-31] MED LIST changes: +ACHD5005 PO; +ASCO500T17 PO; -ASCO500T6 PO; -DIGO125T PO; +DIGO125T3 PO; -HYDR-3812 PO; -MECL-106 PO; +MECL-149 PO
== END ==
LOC: CARD 09:08
PROVIDERS: ATTEND Internal Medicine Cardiovascular Disease
DX: I35.1 Nonrheumatic aortic (valve) insufficiency (principal); I51.7 Cardiomegaly; I48.0 Paroxysmal atrial fibrillation; I49.5 Sick sinus syndrome; C34.91 Malignant neoplasm of unspecified part of right bronchus or lung
CPT/HCPCS: 93306

== ENCOUNTER → 2020-03-31 | Outpatient (CLI) | payer MEDICARE, OTHER ==
--- NOTE | 2020-03-31 12:33 | Diagnostic Imaging Report ---
PROCEDURE: CT chest without contrast. TECHNIQUE: Multiple contiguous axial images were obtained through the chest without the use of intravenous contrast. Auto Exposure Controls were utilized during the CT exam to meet ALARA standards for radiation dose reduction. DATE: March 31, 2010. COMPARISON: Chest radiograph May 08, 2019. No additional comparison CT chest imaging available. INDICATION: 79-year-old male, history of adenocarcinoma of the right lung. PROCEDURE: Axial noncontrasted CT images of the chest. Noncontrasted limits the evaluation of the mediastinum and vascular structures. FINDINGS: There is very mild pleural parenchymal scarring in the right lung apex. There is a predominantly wedge-shaped and linear area of opacification in the right upper lobe which is most consistent with procedure related changes and/or scarring. There are scattered and somewhat focal areas of groundglass attenuation in both lungs, some of which are fairly nodular in appearance. Some examples would include in the left upper lobe on axial image 27 measuring 1.9 cm in extent, in the superior aspect of the left lower lobe on axial image 26 measuring 1.8 cm extent, and in the lingula on axial image 90 measuring 1.4 cm in extent. Comparison imaging is not available to assess for possible stability. There are additional focal areas of groundglass lung attenuation which are not particularly as nodular in appearance. There is no additional identified focal airspace consolidation. There is no pneumothorax. There is no pleural effusion. There are procedural related changes of the right lung. There are coronary artery calcifications and additional areas of atherosclerotic disease. The heart is not enlarged. There is no pericardial effusion. There is no identified abnormally enlarged mediastinal or axillary lymph node which specifically meets CT size criteria for adenopathy. There is pneumobilia. There is no gross biliary ductal dilation. There is a right adrenal nodule measuring 1.3 cm in size with indeterminate internal attenuation of 30 Hounsfield units. There is a 9 mm hyperdense left renal lesion on axial image 144 with internal attenuation of 73 Hounsfield units. This internal attenuation value greater than 70 Hounsfield units does suggest a hemorrhagic cyst although this is difficult to definitively classify. There are multilevel degenerative changes of the spine. 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 There is spinal hardware incompletely imaged at the level of the cervical spine. There is no identified focal concerning bone lesion. IMPRESSION: 1. Post procedural changes of the right lung with scarring in the right upper lobe. 2. Scattered focal areas of groundglass attenuation in both lungs. Comparison cross-sectional is unavailable to assess for stability. These are of uncertain exact acuity. An early atypical infectious process or pneumonitis would be difficult to exclude. Precancerous etiology is also in the differential diagnosis. If comparison CT chest imaging is not available, short-term follow-up CT chest in 2-3 months with clinical correlation is recommended. 3. Technically indeterminate 1.3 cm right adrenal nodule. If further imaging evaluation of this is needed, pre and postcontrast MRI abdomen with in and out of phase imaging is recommended. 4. Probable hemorrhagic left renal cyst. Dictated by: Dictated on workstation # [id number]
== END ==
LOC: RAD 09:07
PROVIDERS: ATTEND Radiology Radiation Oncology
DX: C34.91 Malignant neoplasm of unspecified part of right bronchus or lung (principal); E27.8 Other specified disorders of adrenal gland; Z98.890 Other specified postprocedural states
CPT/HCPCS: 71250

== ENCOUNTER 2020-11-30 21:17 | Inpatient (IN) | payer MEDICARE, OTHER ==
[~2020-11-30] VITALS: Ht 177.8 cm; Wt 83.5 kg
[~2020-11-30 21:17] MED LIST changes: +AMLO-251 PO; -AMLO10TA7 PO; +ASPI-1238 PO; -ASPI-983 PO; +MULT-567 PO; -MULT1TAB69 PO; -PANT40TA3 PO; +PANT40TA52 PO
--- NOTE | 2020-11-30 21:37 | ED General ---
General Chief Complaint: Chest Pain Stated Complaint: RAPID HEART RATE,MILD CHEST PAIN Nursing Triage Note: PT AMBULATE TO ROOM FS01 WITH C/O CHEST PAIN. PT REPORTS HX AFIB. Nursing Sepsis Screen: No Definite Risk History of Present Illness Date Seen by Provider: Nov 30, 2020 Time Seen by Provider: 21:37 Initial Comments Patient presenting to emergency department for evaluation of chest pain and feeling of fast heartbeat. He said this started at rest several hours prior to arrival with no recent exertion. He says that he is in atrial fibrillation intermittently but anything over 8 minutes is abnormal for him as he is out of atrial fibrillation much more than he is in it. Patient says that the pain is a pressure achy sensation in the center of his chest that radiates to his back and both shoulders. He says he does feel short of breath with it but he always feels short of breath due to his chronic lung conditions and surgeries. He denies any nausea vomiting or diaphoresis. He denies ever having a heart catheterization and he gets his cardiac care at both and [facility]. He is on Eliquis and aspirin for anticoagulation and takes digoxin and flecainide and says that he has been compliant with his medications. He says his pain is almost resolved now in the emergency department when I am seeing him. He is in no obvious distress with normal vital signs other than a heart rate ranging from 1 20-1 40. Allergies and Home Medications Allergies Coded Allergies: codeine (Verified Allergy, Unknown, itching, 05/08/19) Home Medications Acetaminophen 500 Mg Tablet, 500-1,000 MG PO Q6H PRN for PAIN-MILD, (Reported) Amlodipine Besylate 10 Mg Tablet, 10 MG PO DAILY, (Reported) Apixaban 5 Mg Tablet, 5 MG PO BID, (Reported) Ascorbic Acid 500 Mg Tablet, 500 MG PO DAILY, (Reported) Aspirin 81 Mg Tablet., 81 MG PO DAILY Prescribed by: ALISA DIALLO on 04/18/19 1200 Digoxin 125 Mcg Tablet, 125 MCG PO DAILY, (Reported) Diphenhydramine HCl 25 Mg Capsule, 25 MG PO BID PRN for ITCHING, (Reported) Ferrous Sulfate 325 Mg Tablet, 325 MG PO DAILY, (Reported) Flecainide Acetate 100 Mg Tablet, 100 MG PO BID, (Reported) Hydrochlorothiazide 12.5 Mg Tablet, 12.5 MG PO DAILY, (Reported) Hydrocodone Bit/Acetaminophen 1 Each Tablet, 1 TAB PO BID PRN for PAIN-MODERATE, (Reported) Lisinopril 2.5 Mg Tablet, 2.5 MG PO DAILY, (Reported) Meclizine HCl 25 Mg Tablet, 25 MG PO TID PRN for DIZZINESS, (Reported) Metformin HCl 500 Mg Tablet, 500 MG PO DAILY, (Reported) Multivitamin 1 Each Tablet, 1 TAB PO DAILY, (Reported) Pantoprazole Sodium 40 Mg Tablet.dr, 40 MG PO BID, (Reported) Potassium Chloride 20 Meq Tab.er.prt, 20 MEQ PO BID, (Reported) Temazepam 30 Mg Capsule, 30 MG PO HS, (Reported) Patient Home Medication List Home Medication List Reviewed: Yes Review of Systems Review of Systems Constitutional: no symptoms reported EENTM: no symptoms reported Respiratory: short of breath Cardiovascular: chest pain Gastrointestinal: no symptoms reported Genitourinary: no symptoms reported Musculoskeletal: back pain Skin: no symptoms reported Psychiatric/Neurological: No Symptoms Reported All Other Systems Reviewed Negative Unless Noted: Yes Past Dzploqh-Qufcgk-Rxgaxv Hx Patient Social History Alcohol Use: Denies Use Smoking Status: Never a Smoker 2nd Hand Smoke Exposure: No Recent Infectious Disease Expo: No Recent Hopitalizations: No Seasonal Allergies Seasonal Allergies: No Past Medical History Surgeries: Yes (spinal surgery, ileostomy, whipple-ampullary mass) Abdominal, Eye Surgery, Joint Replacement, Lobectomy, Prostatectomy Respiratory: Yes (Right lower lobectomy) Cardiac: Yes Atrial Fibrillation, Irregular Heartbeat, Palpitations Neurological: No Genitourinary: Yes Prostate Problems, Kidney Stones Gastrointestinal: Yes (Colostomy) Liver Disease/Jaundice, Gastrointestinal Bleed Musculoskeletal: Yes Arthritis Endocrine: No HEENT: Yes Cataract Cancer: Yes Lung What Type of Treatment Did You: Surgical Intervention Psychosocial: No Integumentary: No Blood Disorders: No Physical Exam Vital Signs Vital Signs - First Documented 11/30/20 21:30 Temp 36.7 Pulse 128 Resp 18 B/P (MAP) 167/81 (109) O2 Delivery Room Air Capillary Refill : Less Than 3 Seconds Height, Weight, BMI Height: 5'10.00" Weight: 175lbs. 8.0oz. [id number]; 25.00 BMI Method:Stated General Appearance: No Apparent Distress, WD/WN HEENT: PERRL/EOMI Neck: Supple Respiratory: Lungs Clear, No Respiratory Distress Cardiovascular: Normal Peripheral Pulses, Irregularly Irregular, Tachycardia Gastrointestinal: Soft Back: Normal Inspection Extremity: No Pedal Edema Neurologic/Psychiatric: Alert, Oriented x3 Skin: Warm/Dry Progress/Results/Core Measures Suspected Sepsis Recent Fever Within 48 Hours: No Infection Criteria Present: None New/Unexplained Altered Menta: No Sepsis Screen: No Definite Risk SIRS Temperature: Pulse: 128 Respiratory Rate: 18 Laboratory Tests 11/30/20 21:30: White Blood Count 11.1H Blood Pressure 167 /81 Mean: 109 Laboratory Tests 11/30/20 21:30: Creatinine 1.09, INR Comment 0.9, Platelet Count 242, Total Bilirubin < 0.2 Results/Orders Lab Results Laboratory Tests Test 11/30/20 21:30 Range/Units White Blood Count 11.1 H 4.3-11.0 10^3/uL Red Blood Count 4.79 4.35-5.85 10^6/uL Hemoglobin 13.9 13.3-17.7 G/DL Hematocrit 43 40-54 % Mean Corpuscular Volume 89 80-99 FL Mean Corpuscular Hemoglobin 29 25-34 PG Mean Corpuscular Hemoglobin Concent 33 32-36 G/DL Red Cell Distribution Width 14.0 10.0-14.5 % Platelet Count 242 130-400 10^3/uL Mean Platelet Volume 10.9 H 7.4-10.4 FL Immature Granulocyte % (Auto) 1 % Neutrophils (%) (Auto) 77 H 42-75 % Lymphocytes (%) (Auto) 12 12-44 % Monocytes (%) (Auto) 7 0-12 % Eosinophils (%) (Auto) 3 0-10 % Basophils (%) (Auto) 1 0-10 % Neutrophils # (Auto) 8.6 H 1.8-7.8 X 10^3 Lymphocytes # (Auto) 1.3 1.0-4.0 X 10^3 Monocytes # (Auto) 0.8 0.0-1.0 X 10^3 Eosinophils # (Auto) 0.3 0.0-0.3 10^3/uL Basophils # (Auto) 0.1 0.0-0.1 10^3/uL Immature Granulocyte # (Auto) 0.1 0.0-0.1 10^3/uL Prothrombin Time 12.9 12.2-14.7 SEC INR Comment 0.9 0.8-1.4 Activated Partial Thromboplast Time 26 24-35 SEC Sodium Level 135 135-145 MMOL/L Potassium Level 4.1 3.6-5.0 MMOL/L Chloride Level 97 L 98-107 MMOL/L Carbon Dioxide Level 22 21-32 MMOL/L Anion Gap 16 H 5-14 MMOL/L Blood Urea Nitrogen 18 7-18 MG/DL Creatinine 1.09 0.60-1.30 MG/DL Estimat Glomerular Filtration Rate > 60 BUN/Creatinine Ratio 17 Glucose Level 216 H 70-105 MG/DL Calcium Level 9.9 8.5-10.1 MG/DL Corrected Calcium 9.8 8.5-10.1 MG/DL Total Bilirubin < 0.2 0.1-1.0 MG/DL Aspartate Amino Transf (AST/SGOT) 30 5-34 U/L Alanine Aminotransferase (ALT/SGPT) 20 0-55 U/L Alkaline Phosphatase 94 40-136 U/L Troponin I < 0.30 <0.30 NG/ML Pro-B-Type Natriuretic Peptide 149.2 H <75.0 PG/ML Total Protein 7.0 6.4-8.2 GM/DL Albumin 4.1 3.2-4.5 GM/DL My Orders Orders - ILIANA HUGGINS DO Cbc With Automated Diff (11/30/20 21:44) Comprehensive Metabolic Panel (11/30/20 21:44) Chest 1 View Ap/Pa Only (11/30/20 21:44) Partial Thromboplastin Time (11/30/20 21:44) Probnp Fs (11/30/20 21:44) Protime With Inr (11/30/20 21:44) Troponin I Fs (11/30/20 21:44) Aspirin Chewable Tablet (Baby Aspirin Ch (11/30/20 21:45) Diltiazem Drip Pre-Mix (Cardizem Drip Pr (11/30/20 21:45) Medications Given in ED Current Medications Medications Dose Ordered Sig/Mark Route Start Time Stop Time Status Last Admin Dose Admin Aspirin 324 mg ONCE ONCE PO 11/30/20 21:45 11/30/20 21:46 DC 11/30/20 21:54 324 MG Vital Signs/I&O 11/30/20 21:30 Temp 36.7 Pulse 128 Resp 18 B/P (MAP) 167/81 (109) O2 Delivery Room Air Capillary Refill : Less Than 3 Seconds Blood Pressure Mean: 109 Progress Note : Progress Note Chronic left sided PTX, no acute abnormalities on CXR Afib RVR on EKG, no ischemia noted, trop normal. Patient is on flecainide and digoxin for his rate control for his atrial fibrillation. Given his rate is quite elevated in the 1 20-1 40 range she was started on a Cardizem drip and it took his heart rate down nicely to 100. I did speak to Dr. Shepherd and he recommended continuing his anticoagulation with aspirin and Eliquis and continuing the Cardizem drip and he would see the patient tomorrow. I spoke to Dr. Calderon and she agreed to admit the patient and he will be admitted to the ICU so they can titrate his Cardizem as needed. Patient transferred in guarded condition to [place] [facility]. Critical Care Note Critical Care Total Time (minutes) 33 Departure Impression Primary Impression: Chest pain Qualified Codes: R07.9 - Chest pain, unspecified Additional Impression: Atrial fibrillation with rapid ventricular response Disposition: ADMITTED INPATIENT Condition: Improved Transfer Transfer Reason: Exceeds level of care Transfer Facility: [facility] Method of Transfer: EMS Departure-Patient Inst. Referrals: [facility] (PCP) Primary Care Physician ROSMERY WADE APRN (Family) Primary Care Physician ILIANA HUGGINS DO Nov 30, 2020 21:37
[2020-11-30] MEDS ORDERED: ASPIRIN 81 MG CHEW (CHILDREN'S ASA) PO ONE (21:45)
[2020-11-30] MEDS ORDERED: dilTIAZem DRIP PRE-MIX 125 ML IV SCH (21:45)
[2020-11-30 21:47] LABS: HEMATOCRIT 43 % (40-54); HEMOGLOBIN 13.9 G/DL (13.3-17.7); MEAN CORPUSCULAR HEMOGLOBIN 29 PG (25-34); MEAN CORPUSCULAR HGB CONC 33 G/DL (32-36); MEAN CORPUSCULAR VOLUME 89 FL (80-99); MEAN PLATELET VOLUME 10.9 FL (7.4-10.4); PLATELET COUNT 242 10^3/uL (130-400); WHITE BLOOD COUNT 11.1 10^3/uL (4.3-11.0)
[2020-11-30 21:48] LABS: BASOPHILS # (AUTO) 0.1 10^3/uL (0.0-0.1); BASOPHILS % (AUTO) 1 % (0-10); EOSINOPHILS # (AUTO) 0.3 10^3/uL (0.0-0.3); EOSINOPHILS % (AUTO) 3 % (0-10); LYMPHOCYTES # (AUTO) 1.3 X 10^3 (1.0-4.0); LYMPHOCYTES % (AUTO) 12 % (12-44); MONOCYTES # (AUTO) 0.8 X 10^3 (0.0-1.0); MONOCYTES % (AUTO) 7 % (0-12); NEUTROPHILS # (AUTO) 8.6 X 10^3 (1.8-7.8); NEUTROPHILS % (AUTO) 77 % (42-75)
[2020-11-30 21:49] LABS: INR 0.9 (0.8-1.4); PROTHROMBIN TIME PATIENT 12.9 SEC (12.2-14.7)
[2020-11-30 21:54] LABS: BUN/CREATININE RATIO 17; CALCIUM 9.9 MG/DL (8.5-10.1); CARBON DIOXIDE 22 MMOL/L (21-32); CHLORIDE 97 MMOL/L (98-107); CREATININE SERUM 1.09 MG/DL (0.60-1.30); GFR ESTIMATED > 60; GLUCOSE 216 MG/DL (70-105); POTASSIUM 4.1 MMOL/L (3.6-5.0); SODIUM 135 MMOL/L (135-145)
[2020-11-30 21:55] LABS: ALANINE AMINOTRANSFERASE 20 U/L (0-55); ALBUMIN 4.1 GM/DL (3.2-4.5); ALKALINE PHOSPHATASE 94 U/L (40-136); BILIRUBIN,TOTAL < 0.2 MG/DL (0.1-1.0)
--- NOTE | 2020-11-30 22:20 | NUR ---
[facility] CALLED FOR TRANSPORT. UNIT TO TRANSPORT RETURNING FROM ANOTHER CALL AND WILL ARRIVE UPON RETURN FROM OTHER CALL
[2020-11-30 23:08] VITALS: BP 120/70
[2020-12-01] MEDS ORDERED: dilTIAZem DRIP PRE-MIX 125 ML IV SCH (00:30)
[2020-12-01 00:56] LABS: BASOPHILS % (AUTO) 0 % (0-10); EOSINOPHILS # (AUTO) 0.3 10^3/uL (0.0-0.3); EOSINOPHILS % (AUTO) 3 % (0-10); HEMATOCRIT 37 % (40-54); HEMOGLOBIN 12.3 g/dL (13.3-17.7); LYMPHOCYTES % (AUTO) 11 % (12-44); MEAN CORPUSCULAR HEMOGLOBIN 29 pg (25-34); MEAN CORPUSCULAR HGB CONC 33 g/dL (32-36); MEAN CORPUSCULAR VOLUME 87 fL (80-99); MEAN PLATELET VOLUME 10.5 fL (9.0-12.2); MONOCYTES # (AUTO) 0.7 10^3/uL (0.0-1.0); MONOCYTES % (AUTO) 8 % (0-12); NEUTROPHILS # (AUTO) 6.6 10^3/uL (1.8-7.8); NEUTROPHILS % (AUTO) 77 % (42-75); PLATELET COUNT 231 10^3/uL (130-400); WHITE BLOOD COUNT 8.6 10^3/uL (4.3-11.0)
[2020-12-01] MEDS ORDERED: APIXABAN 5 MG (ELIQUIS) TABLET PO ONE (01:00)
[2020-12-01 01:04] LABS: ALBUMIN 3.5 GM/DL (3.2-4.5); CHLORIDE 103 MMOL/L (98-107); POTASSIUM 3.4 MMOL/L (3.6-5.0); SODIUM 137 MMOL/L (135-145)
[2020-12-01 01:05] LABS: CALCIUM 9.2 MG/DL (8.5-10.1)
[2020-12-01 01:06] LABS: GLUCOSE 146 MG/DL (70-105)
[2020-12-01 01:07] LABS: CARBON DIOXIDE 23 MMOL/L (21-32)
[2020-12-01 01:08] LABS: BILIRUBIN,TOTAL 0.2 MG/DL (0.1-1.0)
[2020-12-01 01:10] LABS: ALKALINE PHOSPHATASE 72 U/L (40-136); CREATININE SERUM 1.05 MG/DL (0.60-1.30); GFR ESTIMATED > 60; PHOSPHORUS 3.5 MG/DL (2.3-4.7)
[2020-12-01 01:11] LABS: BUN/CREATININE RATIO 16
[2020-12-01 01:13] LABS: ALANINE AMINOTRANSFERASE 19 U/L (0-55); MAGNESIUM 1.8 MG/DL (1.6-2.4)
--- NOTE | 2020-12-01 04:16 | Pulmonary Consultation ---
History of Present Illness History of Present Illness Date Seen by Provider: Dec 01, 2020 Time Seen by Provider: 04:14 Date of Admission Allergies and Home Medications Allergies Coded Allergies: codeine (Verified Allergy, Unknown, itching, 05/08/19) Home Medications Acetaminophen 500 Mg Tablet, 500-1,000 MG PO Q6H PRN for PAIN-MILD, (Reported) Amlodipine Besylate 10 Mg Tablet, 10 MG PO DAILY, (Reported) Apixaban 5 Mg Tablet, 5 MG PO BID, (Reported) Ascorbic Acid 500 Mg Tablet, 500 MG PO DAILY, (Reported) Aspirin 81 Mg Tablet.dr, 81 MG PO DAILY Prescribed by: ALISA DIALLO on 04/18/19 1200 Digoxin 125 Mcg Tablet, 125 MCG PO DAILY, (Reported) Diphenhydramine HCl 25 Mg Capsule, 25 MG PO BID PRN for ITCHING, (Reported) Ferrous Sulfate 325 Mg Tablet, 325 MG PO DAILY, (Reported) Flecainide Acetate 100 Mg Tablet, 100 MG PO BID, (Reported) Hydrochlorothiazide 12.5 Mg Tablet, 12.5 MG PO DAILY, (Reported) Hydrocodone Bit/Acetaminophen 1 Each Tablet, 1 TAB PO BID PRN for PAIN-MODERATE, (Reported) Lisinopril 2.5 Mg Tablet, 2.5 MG PO DAILY, (Reported) Meclizine HCl 25 Mg Tablet, 25 MG PO TID PRN for DIZZINESS, (Reported) Metformin HCl 500 Mg Tablet, 500 MG PO DAILY, (Reported) Multivitamin 1 Each Tablet, 1 TAB PO DAILY, (Reported) Pantoprazole Sodium 40 Mg Tablet.dr, 40 MG PO BID, (Reported) Potassium Chloride 20 Meq Tab.er.prt, 20 MEQ PO BID, (Reported) Temazepam 30 Mg Capsule, 30 MG PO HS, (Reported) Past Pxopabh-Uxgpyn-Jnlnro Hx Patient Social History Alcohol Use: Denies Use Smoking Status: Never a Smoker 2nd Hand Smoke Exposure: No Recent Infectious Disease Expo: No Recent Hopitalizations: No Have you traveled recently?: No Alcohol Use?: No Immunizations Up To Date Date of Influenza Vaccine: Aug 31, 2020 Seasonal Allergies Seasonal Allergies: No Past Medical History Surgeries: Yes (spinal surgery, ileostomy, whipple-ampullary mass) Abdominal, Eye Surgery, Joint Replacement, Lobectomy, Prostatectomy Respiratory: Yes (Right lower lobectomy) Cardiac: Yes Atrial Fibrillation, Irregular Heartbeat, Palpitations Neurological: No Genitourinary: Yes Prostate Problems, Kidney Stones Gastrointestinal: Yes (Colostomy) Liver Disease/Jaundice, Gastrointestinal Bleed Musculoskeletal: Yes Arthritis Endocrine: No HEENT: Yes Cataract Cancer: Yes Lung What Type of Treatment Did You: Surgical Intervention Psychosocial: No Integumentary: No Blood Disorders: No Review of Systems Time Seen by Provider: 04:16 Sepsis Event Evaluation Height, Weight, BMI Height: 5'10.00" Weight: 175lbs. 8.0oz. 79.116328rc; 26.28 BMI Method:Stated Exam Exam Vital Signs Date Time Temp Pulse Resp B/P (MAP) Pulse Ox O2 Delivery O2 Flow Rate FiO2 12/01/20 02:00 73 22 131/59 (83) 96 Room Air 12/01/20 01:30 62 14 135/66 (89) 96 Room Air 12/01/20 01:00 64 17 130/60 (83) 96 Room Air 12/01/20 00:30 64 18 128/60 (82) 97 Room Air 12/01/20 00:15 65 12 119/50 (73) 96 Room Air 12/01/20 00:03 80 12/01/20 00:00 36.2 65 12 141/68 (92) 96 Room Air 11/30/20 23:08 97 17 120/70 97 Room Air 11/30/20 21:30 36.7 128 18 167/81 (109) Room Air Height & Weight Height: 5'10.00" Weight: 175lbs. 8.0oz. 79.085406iw; 26.28 BMI Method:Stated General Appearance: No Apparent Distress, WD/WN HEENT: PERRL/EOMI Neck: Supple Respiratory: Lungs Clear, No Respiratory Distress Cardiovascular: Normal Peripheral Pulses, Irregularly Irregular, Tachycardia Capillary Refill: Less Than 3 Seconds Extremity: No Pedal Edema Neurologic/Psychiatric: Alert, Oriented x3 Skin: Warm/Dry Results Lab Laboratory Tests 11/30/20 21:30 12/01/20 00:45 Assessment/Plan Assessment/Plan Acute Afib - now resolved -Cardizem gtt is off -Cardiology consulted Hx of Afib -Eliquis Hx of RLL lobectomy -Pt is currently on RA Anemia -Monitor Hypokalemia -Replace AGUILA DURAN DO Dec 01, 2020 04:16
[2020-12-01] MEDS ORDERED: POTASSIUM CL 10MEQ/50ML IVPB 50 ML IV SCH (06:00)
[2020-12-01] MEDS ORDERED: KCL 20 MEQ TAB (K-DUR) PO SCH (06:00)
[2020-12-01] MEDS ORDERED: MAGNESIUM 1 GM/100 ML IVPB 100 ML IV SCH (06:00)
--- NOTE | 2020-12-01 07:42 | Diagnostic Imaging Report ---
INDICATION: Chest pain. Frontal chest obtained at 09:46 p.m. and compared to 05/08/2019. FINDINGS: Heart is normal in size. Mediastinal silhouette appears unremarkable. There is no focal infiltrate. There is COPD change with hyperinflation. There is no pneumothorax or pleural fluid. Previous pneumothorax seen on 05/08/2019 has resolved. IMPRESSION: COPD changes. No acute infiltrate. Dictated by: Dictated on workstation # [id number]
--- NOTE | 2020-12-01 08:32 | Consultation-Cardiology ---
HPI-Cardiology Cardiology Consultation: Date of Consultation 12/01/20 Time Seen by a Provider: 08:20 Date of Admission 11-30-20 Attending Physician Tiffani Calderon MD Admitting Physician [place] Consulting Physician Sonia Wagoner MD HPI: Chief Complaint: PAF Mr. Claire is a 79 yr old male admitted to ICU 12 from the ED with episode of a-fib with RVR. He has a known h/o PAF for which he is on chronic OAC with Eliquis for stroke prophylaxis. He follows with Dr. Hernandez at [facility]. He reports he has an ILR in place which is followed by Dr. Hernandez. He states yesterday he had a "funny feeling in his chest". He reports he checked his BP at home and HR which he noted his HR to be elevated. He reports typically when he has a-fib the episodes do not last long, however yesterday it persisted so he came to the ED. He denies any c/o CP, syncope or near syncope. No c/o LE swelling. He reports he feels good and would like to go home today. He is d/t have a virtual visit with with Dr. Hernandez next week. Review of Systems-Cardiology Review of Systems Constitutional: No chills, No fever, No malaise Eyes: No vision change Ears/Nose/Throat: No epistaxis, No recent hearing loss Respiratory: As described under HPI Cardiovascular: As described under HPI Gastrointestinal: No constipation, No diarrhea, No nausea Genitourinary: No dysuria, No hematuria Musculoskeletal: other (right shoulder pain following surgery in Sep 2020, chronic right knee pain for which he waiting on surgery) Skin: No rash on exposed areas, No ulcerations on exposed areas Psychiatric/Neurological: No anxiety, No depression, No focal weakness, No syncope Hematologic: No bleeding abnormalities All Other Systems Reviewed Negative Unless Noted: Yes [id number] Hx Patient Social History Smoking Status: Never a Smoker 2nd Hand Smoke Exposure: No Have you traveled recently?: No Alcohol Use?: No Pt feels they are or have been: No Immunizations Up To Date Date of Influenza Vaccine: Aug 31, 2020 Past Medical History PMH As described under Assessment. Family Medical History Family Medical History: He denies any family h/o CAD. He reports his mother had HTN. Allergies and Home Medications Allergies Coded Allergies: codeine (Verified Allergy, Unknown, itching, 05/08/19) Home Medications Acetaminophen 500 Mg Tablet, 500-1,000 MG PO Q6H PRN for PAIN-MILD, (Reported) Amlodipine Besylate 10 Mg Tablet, 10 MG PO DAILY, (Reported) Apixaban 5 Mg Tablet, 5 MG PO BID, (Reported) Ascorbic Acid 500 Mg Tablet, 500 MG PO DAILY, (Reported) Aspirin 81 Mg Tablet.dr, 81 MG PO DAILY Prescribed by: ALISA DIALLO on 04/18/19 1200 Digoxin 125 Mcg Tablet, 125 MCG PO DAILY, (Reported) Diphenhydramine HCl 25 Mg Capsule, 25 MG PO BID PRN for ITCHING, (Reported) Ferrous Sulfate 325 Mg Tablet, 325 MG PO DAILY, (Reported) Flecainide Acetate 100 Mg Tablet, 100 MG PO BID, (Reported) Hydrochlorothiazide 12.5 Mg Tablet, 12.5 MG PO DAILY, (Reported) Hydrocodone Bit/Acetaminophen 1 Each Tablet, 1 TAB PO BID PRN for PAIN-MODERATE, (Reported) Lisinopril 2.5 Mg Tablet, 2.5 MG PO DAILY, (Reported) Meclizine HCl 25 Mg Tablet, 25 MG PO TID PRN for DIZZINESS, (Reported) Metformin HCl 500 Mg Tablet, 500 MG PO DAILY, (Reported) Multivitamin 1 Each Tablet, 1 TAB PO DAILY, (Reported) Pantoprazole Sodium 40 Mg Tablet.dr, 40 MG PO BID, (Reported) Potassium Chloride 20 Meq Tab.er.prt, 20 MEQ PO BID, (Reported) Temazepam 30 Mg Capsule, 30 MG PO HS, (Reported) Physical Exam-Cardiology Physical Exam Vital Signs/I&O 11/30/20 11/30/20 12/01/20 12/01/20 21:30 23:08 00:00 00:03 Temp 36.7 36.2 Pulse 128 97 65 80 Resp 18 17 12 B/P (MAP) 167/81 (109) 120/70 141/68 (92) Pulse Ox 97 96 O2 Delivery Room Air Room Air Room Air 12/01/20 12/01/20 12/01/20 12/01/20 00:15 00:30 01:00 01:30 Pulse 65 64 64 62 Resp 12 18 17 14 B/P (MAP) 119/50 (73) 128/60 (82) 130/60 (83) 135/66 (89) Pulse Ox 96 97 96 96 O2 Delivery Room Air Room Air Room Air Room Air 12/01/20 12/01/20 12/01/20 12/01/20 02:00 03:00 04:00 05:00 Pulse 73 63 68 63 Resp 22 17 14 26 B/P (MAP) 131/59 (83) 134/60 (84) 125/70 (88) 135/54 (81) Pulse Ox 96 95 97 96 O2 Delivery Room Air Room Air Room Air Room Air 12/01/20 06:00 Pulse 60 Resp 21 B/P (MAP) 137/55 (82) Pulse Ox 97 O2 Delivery Room Air Capillary Refill : Less Than 3 Seconds Constitutional: AAO x 3, well-developed, well-nourished HEENT: PERRL, hearing is well preserved, oral hygience is good Neck: No carotid bruit; carotid pulses are 2 + bilaterally Respiratory: No accessory muscle use, No respiratory distress; chest expansion is symmetric, chest is bilaterally symmetric, lungs clear to auscultation Cardiovascular: regular rate-rhythm; No JVD; S1 and S2 Gastrointestinal: No tender; soft, round, audible bowel sounds Extremities: no lower extremity edema bilateral Neurologic/Psychiatric: grossly intact (moves all extremities) Skin: No rash on exposed areas, No ulcerations on exposed areas Data Review Labs Laboratory Tests 11/30/20 21:30: White Blood Count 11.1H, Red Blood Count 4.79, Hemoglobin 13.9, Hematocrit 43, Mean Corpuscular Volume 89, Mean Corpuscular Hemoglobin 29, Mean Corpuscular Hemoglobin Concent 33, Red Cell Distribution Width 14.0, Platelet Count 242, Mean Platelet Volume 10.9H, Immature Granulocyte % (Auto) 1, Neutrophils (%) (Auto) 77H, Lymphocytes (%) (Auto) 12, Monocytes (%) (Auto) 7, Eosinophils (%) (Auto) 3, Basophils (%) (Auto) 1, Neutrophils # (Auto) 8.6H, Lymphocytes # (Auto) 1.3, Monocytes # (Auto) 0.8, Eosinophils # (Auto) 0.3, Basophils # (Auto) 0.1, Immature Granulocyte # (Auto) 0.1, Prothrombin Time 12.9, INR Comment 0.9, Activated Partial Thromboplast Time 26, Sodium Level 135, Potassium Level 4.1, Chloride Level 97L, Carbon Dioxide Level 22, Anion Gap 16H, Blood Urea Nitrogen 18, Creatinine 1.09, Estimat Glomerular Filtration Rate > 60, BUN/Creatinine Ratio 17, Glucose Level 216H, Calcium Level 9.9, Corrected Calcium 9.8, Total Bilirubin < 0.2, Aspartate Amino Transf (AST/SGOT) 30, Alanine Aminotransferase (ALT/SGPT) 20, Alkaline Phosphatase 94, Troponin I < 0.30, Pro-B-Type Natriuretic Peptide 149.2H, Total Protein 7.0, Albumin 4.1 12/01/20 00:45: White Blood Count 8.6, Red Blood Count 4.26L, Hemoglobin 12.3L, Hematocrit 37L, Mean Corpuscular Volume 87, Mean Corpuscular Hemoglobin 29, Mean Corpuscular Hemoglobin Concent 33, Red Cell Distribution Width 13.8, Platelet Count 231, Mean Platelet Volume 10.5, Immature Granulocyte % (Auto) 1, Neutrophils (%) (Auto) 77H, Lymphocytes (%) (Auto) 11L, Monocytes (%) (Auto) 8, Eosinophils (%) (Auto) 3, Basophils (%) (Auto) 0, Neutrophils # (Auto) 6.6, Lymphocytes # (Auto) 1.0, Monocytes # (Auto) 0.7, Eosinophils # (Auto) 0.3, Basophils # (Auto) 0.0, Immature Granulocyte # (Auto) 0.1, Sodium Level 137, Potassium Level 3.4L, Chloride Level 103, Carbon Dioxide Level 23, Anion Gap 11, Blood Urea Nitrogen 17, Creatinine 1.05, Estimat Glomerular Filtration Rate > 60, BUN/Creatinine Ratio 16, Glucose Level 146H, Calcium Level 9.2, Corrected Calcium 9.6, Total Bilirubin 0.2, Aspartate Amino Transf (AST/SGOT) 19, Alanine Aminotransferase (ALT/SGPT) 19, Alkaline Phosphatase 72, Troponin I < 0.028, Total Protein 6.0L, Albumin 3.5, Phosphorus Level 3.5, Magnesium Level 1.8 Laboratory Tests 11/30/20 21:30 12/01/20 00:45 Radiology NAME: JOANN CLAIRE [facility] REC#: [id number] PT STATUS: ADM IN : 1940 PHYSICIAN: ILIANA HUGGINS DO ADMIT DATE: 11/30/20/ICU Draft Date of Exam:11/30/20 CHEST 1 VIEW AP/PA ONLY INDICATION: Chest pain. Frontal chest obtained at 09:46 p.m. and compared to 05/08/2019. FINDINGS: Heart is normal in size. Mediastinal silhouette appears unremarkable. There is no focal infiltrate. There is COPD change with hyperinflation. There is no pneumothorax or pleural fluid. Previous pneumothorax seen on 05/08/2019 has resolved. IMPRESSION: COPD changes. No acute infiltrate. Dictated on workstation # [id number] Dict: 12/01/20 0731 Trans: 12/01/20 0741 [id number] Interpreted by: MEGA HOLDEN MD Electronically signed by: ECG Impression ECG Initial ECG Impression: Atrial Fibrillation w/RVR A/P-Cardiology Assessment/Admission Diagnosis Episode of PAF H/O Paroxysmal atrial fibrillation, currently in sinus rhythm - follows with Dr. Hernandez at [facility] OAC with Eliquis H/O TIA in the past Hypertension History of lung cancer, had right lower lobectomy done in 2017 and received 3 rounds of chemotherapy Diabetes mellitus, followed and managed by primary care physician History of Whipple surgery Illeostomy History of multiple back surgeries. History of tobaccoism stopped smoking in the 90s Discussion and Recomendations PAF - chronic PAF - currently SR Continue OAC with Eliquis Hypokalemia - replace electrolytes Contine Flecainide home dose Stop Digoxin Continue Cardizem CD Advised him to keep his f/u with Dr. 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
[2020-12-01] MEDS ORDERED: APIXABAN 5 MG (ELIQUIS) TABLET PO SCH (09:00)
[2020-12-01] MEDS ORDERED: FLECAINIDE 100 MG (TAMBOCOR) TAB PO SCH (09:00)
[2020-12-01] MEDS ORDERED: KCL 20 MEQ TAB (K-DUR) PO ONE (09:00)
--- NOTE | 2020-12-01 11:24 | Consultation-Cardiology ---
HPI-Cardiology Cardiology Consultation: Date of Consultation 12/01/20 Time Seen by a Provider: 11:00 Date of Admission Attending Physician Tiffani Calderon MD Admitting Physician [place] Consulting Physician CIRILO PIERCE MD, MA, FACP, FACC, [facility], [facility] HPI: Chief Complaint: Reason for consultation: PAF HPI Mr. Medina is a 79 yr old male admitted to ICU 12 from the ED with episode of a-fib with RVR. He has a known h/o PAF for which he is on chronic OAC with Eliquis for stroke prophylaxis. He follows with Dr. Hernandez at [facility]. He reports he has an ILR in place which is followed by Dr. Hernandez. He states yesterday he had a "funny feeling in his chest". He reports he checked his BP at home and HR which he noted his HR to be elevated. He reports typically when he has a-fib the episodes do not last long, however yesterday it persisted so he came to the ED. He denies any c/o CP, syncope or near syncope. No c/o LE swelling. He reports he feels good and would like to go home today. He is d/t have a virtual visit with with Dr. Hernandez next week. Review of Systems-Cardiology Review of Systems Constitutional: No chills, No fever, No malaise Eyes: No vision change Ears/Nose/Throat: No epistaxis, No recent hearing loss Respiratory: As described under HPI Cardiovascular: As described under HPI Gastrointestinal: No constipation, No diarrhea, No nausea Genitourinary: No dysuria, No hematuria Musculoskeletal: other (right shoulder pain following surgery in Sep 2020, chronic right knee pain for which he waiting on surgery) Skin: No rash on exposed areas, No ulcerations on exposed areas Psychiatric/Neurological: No anxiety, No depression, No focal weakness, No syncope Hematologic: No bleeding abnormalities All Other Systems Reviewed Negative Unless Noted: Yes [id number] Hx Patient Social History Smoking Status: Never a Smoker 2nd Hand Smoke Exposure: No Have you traveled recently?: No Alcohol Use?: No Pt feels they are or have been: No Immunizations Up To Date Date of Influenza Vaccine: Aug 31, 2020 Past Medical History PMH As described under Assessment. Family Medical History Family Medical History: He denies any family h/o CAD. He reports his mother had HTN. Allergies and Home Medications Allergies Coded Allergies: codeine (Verified Allergy, Unknown, itching, 05/08/19) Home Medications Acetaminophen 500 Mg Tablet, 500-1,000 MG PO Q6H PRN for PAIN-MILD, (Reported) Amlodipine Besylate 10 Mg Tablet, 10 MG PO DAILY, (Reported) Apixaban 5 Mg Tablet, 5 MG PO BID, (Reported) Ascorbic Acid 500 Mg Tablet, 500 MG PO DAILY, (Reported) Aspirin 81 Mg Tablet.dr, 81 MG PO DAILY Prescribed by: ALISA DIALLO on 04/18/19 1200 Digoxin 125 Mcg Tablet, 125 MCG PO DAILY, (Reported) Diphenhydramine HCl 25 Mg Capsule, 25 MG PO BID PRN for ITCHING, (Reported) Ferrous Sulfate 325 Mg Tablet, 325 MG PO DAILY, (Reported) Flecainide Acetate 100 Mg Tablet, 100 MG PO BID, (Reported) Hydrochlorothiazide 12.5 Mg Tablet, 12.5 MG PO DAILY, (Reported) Hydrocodone Bit/Acetaminophen 1 Each Tablet, 1 TAB PO BID PRN for PAIN-MODERATE, (Reported) Lisinopril 2.5 Mg Tablet, 2.5 MG PO DAILY, (Reported) Meclizine HCl 25 Mg Tablet, 25 MG PO TID PRN for DIZZINESS, (Reported) Metformin HCl 500 Mg Tablet, 500 MG PO DAILY, (Reported) Multivitamin 1 Each Tablet, 1 TAB PO DAILY, (Reported) Pantoprazole Sodium 40 Mg Tablet.dr, 40 MG PO BID, (Reported) Potassium Chloride 20 Meq Tab.er.prt, 20 MEQ PO BID, (Reported) Temazepam 30 Mg Capsule, 30 MG PO HS, (Reported) Patient Home Medication List Home Medication List Reviewed: Yes Physical Exam-Cardiology Physical Exam Vital Signs/I&O 12/01/20 12/01/20 12/01/20 12/01/20 00:00 00:03 00:15 00:30 Temp 36.2 Pulse 65 80 65 64 Resp 12 12 18 B/P (MAP) 141/68 (92) 119/50 (73) 128/60 (82) Pulse Ox 96 96 97 O2 Delivery Room Air Room Air Room Air 12/01/20 12/01/20 12/01/20 12/01/20 01:00 01:30 02:00 03:00 Pulse 64 62 73 63 Resp 17 14 22 17 B/P (MAP) 130/60 (83) 135/66 (89) 131/59 (83) 134/60 (84) Pulse Ox 96 96 96 95 O2 Delivery Room Air Room Air Room Air Room Air 12/01/20 12/01/20 12/01/20 12/01/20 04:00 05:00 06:00 06:44 Pulse 68 63 60 57 Resp 14 26 21 B/P (MAP) 125/70 (88) 135/54 (81) 137/55 (82) Pulse Ox 97 96 97 O2 Delivery Room Air Room Air Room Air 12/01/20 08:00 Pulse 63 Resp 24 B/P (MAP) 138/61 (86) Pulse Ox 96 O2 Delivery Room Air Capillary Refill : Less Than 3 Seconds Constitutional: AAO x 3, well-developed, well-nourished HEENT: PERRL, hearing is well preserved, oral hygience is good Neck: No carotid bruit; carotid pulses are 2 + bilaterally Respiratory: No accessory muscle use, No respiratory distress; chest expansion is symmetric, chest is bilaterally symmetric, lungs clear to auscultation Cardiovascular: regular rate-rhythm; No JVD; S1 and S2 Gastrointestinal: No tender; soft, round, audible bowel sounds Extremities: no lower extremity edema bilateral Neurologic/Psychiatric: grossly intact (moves all extremities) Skin: No rash on exposed areas, No ulcerations on exposed areas Data Review Labs Laboratory Tests 11/30/20 21:30: White Blood Count 11.1H, Red Blood Count 4.79, Hemoglobin 13.9, Hematocrit 43, Mean Corpuscular Volume 89, Mean Corpuscular Hemoglobin 29, Mean Corpuscular Hemoglobin Concent 33, Red Cell Distribution Width 14.0, Platelet Count 242, Mean Platelet Volume 10.9H, Immature Granulocyte % (Auto) 1, Neutrophils (%) (Auto) 77H, Lymphocytes (%) (Auto) 12, Monocytes (%) (Auto) 7, Eosinophils (%) (Auto) 3, Basophils (%) (Auto) 1, Neutrophils # (Auto) 8.6H, Lymphocytes # (Auto) 1.3, Monocytes # (Auto) 0.8, Eosinophils # (Auto) 0.3, Basophils # (Auto) 0.1, Immature Granulocyte # (Auto) 0.1, Prothrombin Time 12.9, INR Comment 0.9, Activated Partial Thromboplast Time 26, Sodium Level 135, Potassium Level 4.1, Chloride Level 97L, Carbon Dioxide Level 22, Anion Gap 16H, Blood Urea Nitrogen 18, Creatinine 1.09, Estimat Glomerular Filtration Rate > 60, BUN/Creatinine Ratio 17, Glucose Level 216H, Calcium Level 9.9, Corrected Calcium 9.8, Total Bilirubin < 0.2, Aspartate Amino Transf (AST/SGOT) 30, Alanine Aminotransferase (ALT/SGPT) 20, Alkaline Phosphatase 94, Troponin I < 0.30, Pro-B-Type Natriuretic Peptide 149.2H, Total Protein 7.0, Albumin 4.1 12/01/20 00:45: White Blood Count 8.6, Red Blood Count 4.26L, Hemoglobin 12.3L, Hematocrit 37L, Mean Corpuscular Volume 87, Mean Corpuscular Hemoglobin 29, Mean Corpuscular Hemoglobin Concent 33, Red Cell Distribution Width 13.8, Platelet Count 231, Mean Platelet Volume 10.5, Immature Granulocyte % (Auto) 1, Neutrophils (%) (Auto) 77H, Lymphocytes (%) (Auto) 11L, Monocytes (%) (Auto) 8, Eosinophils (%) (Auto) 3, Basophils (%) (Auto) 0, Neutrophils # (Auto) 6.6, Lymphocytes # (Auto) 1.0, Monocytes # (Auto) 0.7, Eosinophils # (Auto) 0.3, Basophils # (Auto) 0.0, Immature Granulocyte # (Auto) 0.1, Sodium Level 137, Potassium Level 3.4L, Chloride Level 103, Carbon Dioxide Level 23, Anion Gap 11, Blood Urea Nitrogen 17, Creatinine 1.05, Estimat Glomerular Filtration Rate > 60, BUN/Creatinine Ratio 16, Glucose Level 146H, Calcium Level 9.2, Corrected Calcium 9.6, Total Bilirubin 0.2, Aspartate Amino Transf (AST/SGOT) 19, Alanine Aminotransferase (ALT/SGPT) 19, Alkaline Phosphatase 72, Troponin I < 0.028, Total Protein 6.0L, Albumin 3.5, Phosphorus Level 3.5, Magnesium Level 1.8, Digoxin Level < 0.30L A/P-Cardiology Assessment/Admission Diagnosis Episode of PAF 12/01/20, treated with diltiazem H/O Paroxysmal atrial fibrillation, currently in sinus rhythm - follows with Dr. Hernandez at [facility] OAC with Eliquis H/O TIA in the past Hypertension History of lung cancer, had right lower lobectomy done in 2017 and received 3 rounds of chemotherapy Diabetes mellitus, followed and managed by primary care physician History of Whipple surgery Illeostomy History of multiple back surgeries. History of tobaccoism stopped smoking in the Discussion and Recomendations Continue flecainide for rhythm control (initiated and managed by his EP Dr Royal at [facility]) Long-acting diltiazemd for rate control. D/c amlodipine and dig after starting diltiazem Continue OAC with Eliquis Hypokalemia - replace electrolytes. Hypokalemia is likely making him more prone to A Fib. It is likely due to chronic diuretic therapy. We recommend close monitoring and outpt and consider d/c HCTZ if he continues to have hypokalemia Advised him to keep his f/u with Dr. Hernandez at [facility] Wishes to go home today We would like to thank Medical services for this consult Clinical Quality Measures AMI/AHF: ASA po Prior to arrival: Yes (81MG MOUNTAIN GUIDE) CIRILO PIERCE MD FACP FAC CCDS Dec 01, 2020 11:24
[2020-12-01] MEDS ORDERED: DILT240C91 PO (11:33)
--- NOTE | 2020-12-01 12:32 | Short Stay Summary ---
SHELLI[place]ON[place] MED STUDENT 12/01/20 1232: History of Present Illness History of Present Illness Reason for visit/HPI This is a 79 year old male that presented yesterday to ER with chest pains and a "fast heart". Said it started at rest. He gets afib intermittently but states that over 8 minutes is abnormal for him. He had chest pain that radiated to his back and both shoulders. He denies SOB, and NV, diaphoresis. His pain almost entirely resolved in the ED. He was admitted and sent to ICU to monitor Cardizem. States today that he has no pain other than the pain in his shoulder from a recent replacement. He denies CP, SOB. States his heart is feeling better. Has an ostomy bag. Can walk on his own. Lives at home with his and does not use O2 at home. He has a knee surgery scheduled for DEC 27. Dr. Arriola consulted. He is slightly hypokalemic today. His cardizem is currently off. Receiving elequis, he is on room air. Being monitored for anemia and K is being replaced. Date of Admission Nov 30, 2020 at 23:59 Date of Discharge Dec 01, 2020 Time Seen by Provider: 09:45 Attending Physician Rae Jaquez MD Admitting Physician [facility] Consult Allergies and Home Medications Allergies Coded Allergies: codeine (Verified Allergy, Unknown, itching, 05/08/19) Home Medications Acetaminophen 500 Mg Tablet, 500-1,000 MG PO Q6H PRN for PAIN-MILD, (Reported) Apixaban 5 Mg Tablet, 5 MG PO BID, (Reported) Ascorbic Acid 500 Mg Tablet, 500 MG PO DAILY, (Reported) Aspirin 81 Mg Tablet.dr, 81 MG PO DAILY Prescribed by: ALISA DIALLO on 04/18/19 1200 Diltiazem HCl 240 Mg Cap.er.24h, 240 MG PO DAILY Prescribed by: DEVON VICTOR on 12/01/20 1133 Diphenhydramine HCl 25 Mg Capsule, 25 MG PO BID PRN for ITCHING, (Reported) Ferrous Sulfate 325 Mg Tablet, 325 MG PO DAILY, (Reported) Flecainide Acetate 100 Mg Tablet, 100 MG PO BID, (Reported) Hydrochlorothiazide 12.5 Mg Tablet, 12.5 MG PO DAILY, (Reported) Hydrocodone Bit/Acetaminophen 1 Each Tablet, 1 TAB PO BID PRN for PAIN-MODERATE, (Reported) Lisinopril 2.5 Mg Tablet, 2.5 MG PO DAILY, (Reported) Meclizine HCl 25 Mg Tablet, 25 MG PO TID PRN for DIZZINESS, (Reported) Metformin HCl 500 Mg Tablet, 500 MG PO DAILY, (Reported) Multivitamin 1 Each Tablet, 1 TAB PO DAILY, (Reported) Pantoprazole Sodium 40 Mg Tablet.dr, 40 MG PO BID, (Reported) Potassium Chloride 20 Meq Tab.er.prt, 20 MEQ PO BID, (Reported) Temazepam 30 Mg Capsule, 30 MG PO HS, (Reported) Patient Home Medication List Home Medication List Reviewed: Yes Past Silxurg-Bzfbvx-Kvbaji Hx Patient Social History Smoking Status: Never a Smoker 2nd Hand Smoke Exposure: No Recent Hopitalizations: No Have you traveled recently?: No Alcohol Use?: No Pt feels they are or have been: No Immunizations Up To Date Date of Influenza Vaccine: Aug 31, 2020 Seasonal Allergies Seasonal Allergies: No Surgeries Yes (spinal surgery, ileostomy, whipple-ampullary mass) Abdominal, Eye Surgery, Joint Replacement, Lobectomy, Prostatectomy Respiratory Yes (Right lower lobectomy) Cardiovascular Yes Atrial Fibrillation, Irregular Heartbeat, Palpitations Neurological No Genitourinary Yes Prostate Problems, Kidney Stones Gastrointestinal Yes (Colostomy) Liver Disease/Jaundice, Gastrointestinal Bleed Musculoskeletal Yes Arthritis Endocrine History of Endocrine Disorders: No HEENT History of HEENT Disorders: Yes HEENT Disorders: Cataract Cancer Yes Lung Type of Treatment: Surgical Intervention Psychosocial History of Psychiatric Problem: No Integumentary History of Skin or Integumenta: No Blood Transfusions History of Blood Disorders: No Review of Systems Constitutional: no symptoms reported EENTM: no symptoms reported Respiratory: no symptoms reported Cardiovascular: no symptoms reported Gastrointestinal: no symptoms reported Genitourinary: no symptoms reported Musculoskeletal: joint pain (Pain in R shoulder that is normal for him, surgery 8 weeks ago) Skin: no symptoms reported Psychiatric/Neurological: No Symptoms Reported All Other Systems Reviewed Negative Unless Noted: Yes Physical Exam Vital Signs Vital Signs - First Documented 11/30/20 11/30/20 21:30 23:08 Temp 36.7 Pulse 128 Resp 18 B/P (MAP) 167/81 (109) Pulse Ox 97 O2 Delivery Room Air Capillary Refill : Less Than 3 Seconds Height, Weight, BMI Height: 5'10.00" Weight: 175lbs. 8.0oz. 79.890129ms; 26.28 BMI Method:Stated General Appearance: No Apparent Distress Neck: Full Range of Motion, Non Tender Respiratory: Chest Non Tender, Lungs Clear, Normal Breath Sounds, No Accessory Muscle Use, No Respiratory Distress Cardiovascular: Regular Rate, Rhythm, No Edema, No Gallop, No JVD, No Murmur, Normal Peripheral Pulses Gastrointestinal: Normal Bowel Sounds, No Organomegaly, No Pulsatile Mass, Non Tender, Soft Rectal: Deferred Back: No Vertebral Tenderness Extremity: Normal Inspection, Normal Range of Motion, Non Tender, No Calf Tenderness, No Pedal Edema Neurologic/Psychiatric: Alert, Oriented x3 Skin: Normal Color, Warm/Dry Lymphatic: No Adenopathy Clinical Quality Measures AMI/AHF: ASA po Prior to arrival: Yes ([employer]MG [employer]OX [employer]ING[employer]OCK ATT[employer]ER) Short Stay Diagnosis Discharge Diagnosis-Short Stay Admission Diagnosis: AFIB Final Discharge Diagnosis: AFIB Conclusion Labs Laboratory Tests 11/30/20 21:30: White Blood Count 11.1H, Red Blood Count 4.79, Hemoglobin 13.9, Hematocrit 43, Mean Corpuscular Volume 89, Mean Corpuscular Hemoglobin 29, Mean Corpuscular Hemoglobin Concent 33, Red Cell Distribution Width 14.0, Platelet Count 242, Mean Platelet Volume 10.9H, Immature Granulocyte % (Auto) 1, Neutrophils (%) (Auto) 77H, Lymphocytes (%) (Auto) 12, Monocytes (%) (Auto) 7, Eosinophils (%) (Auto) 3, Basophils (%) (Auto) 1, Neutrophils # (Auto) 8.6H, Lymphocytes # (Auto) 1.3, Monocytes # (Auto) 0.8, Eosinophils # (Auto) 0.3, Basophils # (Auto) 0.1, Immature Granulocyte # (Auto) 0.1, Prothrombin Time 12.9, INR Comment 0.9, Activated Partial Thromboplast Time 26, Sodium Level 135, Potassium Level 4.1, Chloride Level 97L, Carbon Dioxide Level 22, Anion Gap 16H, Blood Urea Nitrogen 18, Creatinine 1.09, Estimat Glomerular Filtration Rate > 60, BUN/Creatinine Ratio 17, Glucose Level 216H, Calcium Level 9.9, Corrected Calcium 9.8, Total Bilirubin < 0.2, Aspartate Amino Transf (AST/SGOT) 30, Alanine Aminotransferase (ALT/SGPT) 20, Alkaline Phosphatase 94, Troponin I < 0.30, Pro-B-Type Natriuretic Peptide 149.2H, Total Protein 7.0, Albumin 4.1 12/01/20 00:45: White Blood Count 8.6, Red Blood Count 4.26L, Hemoglobin 12.3L, Hematocrit 37L, Mean Corpuscular Volume 87, Mean Corpuscular Hemoglobin 29, Mean Corpuscular Hemoglobin Concent 33, Red Cell Distribution Width 13.8, Platelet Count 231, Mean Platelet Volume 10.5, Immature Granulocyte % (Auto) 1, Neutrophils (%) (Auto) 77H, Lymphocytes (%) (Auto) 11L, Monocytes (%) (Auto) 8, Eosinophils (%) (Auto) 3, Basophils (%) (Auto) 0, Neutrophils # (Auto) 6.6, Lymphocytes # (Auto) 1.0, Monocytes # (Auto) 0.7, Eosinophils # (Auto) 0.3, Basophils # (Auto) 0.0, Immature Granulocyte # (Auto) 0.1, Sodium Level 137, Potassium Level 3.4L, Chloride Level 103, Carbon Dioxide Level 23, Anion Gap 11, Blood Urea Nitrogen 17, Creatinine 1.05, Estimat Glomerular Filtration Rate > 60, BUN/Creatinine Ratio 16, Glucose Level 146H, Calcium Level 9.2, Corrected Calcium 9.6, Total Bilirubin 0.2, Aspartate Amino Transf (AST/SGOT) 19, Alanine Aminotransferase (ALT/SGPT) 19, Alkaline Phosphatase 72, Troponin I < 0.028, Total Protein 6.0L, Albumin 3.5, Phosphorus Level 3.5, Magnesium Level 1.8, Digoxin Level < 0.30L Conclusion/Plan This is a 79 YO male that presented with AFIB AFIB -Cardizem drip started, currently not running -Afib currently resolved -Monitor for new Chest pain, SOB, new AFIB -Elequis Hypokalemia -Monitored with labs -K replacement given Anemia -Anemia being watched with labs -Anemia is not severe, concern only if HGB continues to decrease -If worsens, consider Occult blood, or Surg consult. RAE JAQUEZ MD 12/01/20 2008: Allergies and Home Medications Allergies Coded Allergies: codeine (Verified Allergy, Unknown, itching, 05/08/19) Home Medications Acetaminophen 500 Mg Tablet, 500-1,000 MG PO Q6H PRN for PAIN-MILD, (Reported) Apixaban 5 Mg Tablet, 5 MG PO BID, (Reported) Ascorbic Acid 500 Mg Tablet, 500 MG PO DAILY, (Reported) Aspirin 81 Mg Tablet.dr, 81 MG PO DAILY Prescribed by: ALISA DIALLO on 04/18/19 1200 Diltiazem HCl 240 Mg Cap.er.24h, 240 MG PO DAILY Prescribed by: DEVON VICTOR on 12/01/20 1133 Diphenhydramine HCl 25 Mg Capsule, 25 MG PO BID PRN for ITCHING, (Reported) Ferrous Sulfate 325 Mg Tablet, 325 MG PO DAILY, (Reported) Flecainide Acetate 100 Mg Tablet, 100 MG PO BID, (Reported) Hydrochlorothiazide 12.5 Mg Tablet, 12.5 MG PO DAILY, (Reported) Hydrocodone Bit/Acetaminophen 1 Each Tablet, 1 TAB PO BID PRN for PAIN-MODERATE, (Reported) Lisinopril 2.5 Mg Tablet, 2.5 MG PO DAILY, (Reported) Meclizine HCl 25 Mg Tablet, 25 MG PO TID PRN for DIZZINESS, (Reported) Metformin HCl 500 Mg Tablet, 500 MG PO DAILY, (Reported) Multivitamin 1 Each Tablet, 1 TAB PO DAILY, (Reported) Pantoprazole Sodium 40 Mg Tablet.dr, 40 MG PO BID, (Reported) Potassium Chloride 20 Meq Tab.er.prt, 20 MEQ PO BID, (Reported) Temazepam 30 Mg Capsule, 30 MG PO HS, (Reported) Patient Home Medication List Home Medication List Reviewed: Yes Review of Systems Constitutional: no symptoms reported; No chills, No fever, No malaise EENTM: no symptoms reported Respiratory: No cough; dyspnea on exertion Cardiovascular: chest pain; No edema; palpitations Gastrointestinal: no symptoms reported; No abdominal pain, No constipation, No diarrhea, No nausea, No vomiting Genitourinary: no symptoms reported; No dysuria, No frequency, No hematuria Musculoskeletal: no symptoms reported; No back pain, No joint pain, No muscle pain Skin: no symptoms reported; No lesions, No rash Psychiatric/Neurological: Weakness Physical Exam General Appearance: No Apparent Distress, WD/WN Neck: Full Range of Motion, Non Tender, Supple Respiratory: Chest Non Tender, Lungs Clear, Normal Breath Sounds, No Accessory Muscle Use, No Respiratory Distress Cardiovascular: Regular Rate, Rhythm, No Edema, Normal Peripheral Pulses Gastrointestinal: Normal Bowel Sounds, Non Tender, Soft Back: No CVA Tenderness, No Vertebral Tenderness Extremity: Normal Range of Motion, Non Tender, No Calf Tenderness, No Pedal Edema Neurologic/Psychiatric: Alert, Oriented x3, No Motor/Sensory Deficits, Normal Mood/Affect, community organizer II-XII Norm as Tested Skin: Normal Color, Warm/Dry Lymphatic: No Adenopathy Short Stay Diagnosis Discharge Diagnosis-Short Stay Admission Diagnosis: Atrial Fibrillation with RVR Atypical Chest pain HTN NIDDM Final Discharge Diagnosis: See Above Conclusion Conclusion/Plan Verification and Attestation of Medical Student E/M Service A medical student performed and documented this service in my presence. I revie wed and verified all information documented by the medical student and made modifications to such information, when appropriate. I personally performed the physical exam and medical decision making. Rae Jaquez, Dec 01, 2020,20:07 79 yo M that presented with shortness of breath found to be in Atrial fibrillation with RVR A fib w/RVR - Cardiology consulted, patient follows with [facility] cardiology, recent normal stress test prior to R Shoulder surgery - Will have close f.u with primary air/ocean export clerk - Ok to d/c per cardiology today ANTONIA MARQUES MED STUDENT Dec 01, 2020 12:32 RAE JAQUEZ MD Dec 01, 2020 20:08
== END 2020-12-01 13:30 | disposition home or self-care (01) | DRG 310 ==
LOC: EDUNIT# 21:17 → ER FS 21:20 → ICU 23:59
PROVIDERS: ADMIT Family Medicine; ATTEND Family Medicine
DX: I48.0 Paroxysmal atrial fibrillation (principal); M19.90 Unspecified osteoarthritis, unspecified site; E87.6 Hypokalemia; D64.9 Anemia, unspecified; R07.89 Other chest pain; I10 Essential (primary) hypertension; E11.9 Type 2 diabetes mellitus without complications; Z88.5 Allergy status to narcotic agent; Z79.82 Long term (current) use of aspirin; Z86.73 Personal history of transient ischemic attack (TIA), and cerebral infarction without residual deficits; Z79.01 Long term (current) use of anticoagulants; Z85.118 Personal history of other malignant neoplasm of bronchus and lung; Z93.2 Ileostomy status; Z87.891 Personal history of nicotine dependence; Z92.3 Personal history of irradiation; Z90.2 Acquired absence of lung [part of]
CPT/HCPCS: 36415; 71045; 80053; 80162; 83735; 83880; 84100; 84484; 85025; 85610; 85730; 87081; 93005

== ENCOUNTER → 2021-04-12 | Outpatient (CLI) | payer MEDICARE, OTHER ==
[~2021-04-12] MED LIST changes: +DILT240C91 PO
--- NOTE | 2021-04-12 10:57 | Diagnostic Imaging Report ---
PROCEDURE: CT abdomen and pelvis without contrast. TECHNIQUE: Multiple contiguous axial images were obtained through the abdomen and pelvis without the use of intravenous contrast. Auto Exposure Controls were utilized during the CT exam to meet ALARA standards for radiation dose reduction. INDICATION: Flank pain. Patient does have history of kidney stones. No prior studies are available for comparison. FINDINGS: Lung bases are clear of acute infiltrates. Liver does show some pneumobilia in the left lobe. The gallbladder appears to be surgically absent. No liver mass or biliary ductal dilatation is seen. Pancreas and spleen are unremarkable. There is some adrenal nodularity bilaterally. Bilateral nephrolithiasis is noted. Largest calculus on the right is in the lower pole measuring 9 mm. Largest calculus on the left is in the lower pole measuring 4 mm. There is a 10 mm x 11 mm calculus in the proximal right ureter approximately level of L4 producing moderate hydroureteronephrosis. The ureter is normal caliber distal to this level. Left ureter is unremarkable. Aorta is heavily calcified but nonaneurysmal. The bladder is decompressed. Prostate gland is enlarged. Bowel loops are normal caliber. There is an ostomy in the right lower quadrant. There are postsurgical changes at the rectosigmoid junction. Numerous surgical clips in the left pelvis. No free fluid or fluid collection is identified. Postoperative changes posterior instrumented fusion L4-S1 is noted. IMPRESSION: 1. Bilateral nonobstructing nephrolithiasis. In addition, there is a 10 mm x 11 mm calculus in the proximal right ureter producing moderate hydroureteronephrosis. 2. Postsurgical changes in the abdomen and pelvis. 3. Prostatomegaly. Dictated by: Dictated on workstation # [id number]
== END ==
LOC: RAD FS 10:33
PROVIDERS: ATTEND Nurse Practitioner Family
DX: N13.2 Hydronephrosis with renal and ureteral calculous obstruction (principal); N40.0 Benign prostatic hyperplasia without lower urinary tract symptoms
CPT/HCPCS: 74176

== ENCOUNTER → 2021-04-26 | Outpatient (CLI) | payer MEDICARE, OTHER | LOC: LAB FS 09:12 | PROVIDERS: ATTEND Orthopaedic Surgery | DX: M65.9 Synovitis and tenosynovitis, unspecified (principal) | CPT/HCPCS: 36415; 85652; 86141 ==

== ENCOUNTER → 2021-04-26 | Outpatient (CLI) | payer MEDICARE, OTHER ==
--- NOTE | 2021-04-26 13:54 | Diagnostic Imaging Report ---
EXAMINATION: CT chest without contrast. TECHNIQUE: Multiple contiguous axial images were obtained through the chest without the use of intravenous contrast. All CT scans use one or more of the following dose optimizing techniques: automated exposure control, MA and/or KvP adjustment based on patient size and exam type or iterative reconstruction. HISTORY: Lung cancer. COMPARISON: 03/31/2020 FINDINGS: There is no edema or pneumonia. No pleural effusion. No pneumothorax. There is stable area of scarring in the right upper lobe likely representing treatment changes. The degree of soft tissue is unchanged. There are multifocal groundglass nodules including a left lower lobe nodule measures 22 mm, previously 19 mm. A lingular nodule measures 13 mm, previously 12 mm. Other multifocal groundglass nodules also stable to minimally increased in size. There is no axillary or supraclavicular lymphadenopathy. There is no mediastinal lymphadenopathy. Heart size is normal. There are mild coronary artery calcifications. No pericardial effusion. Aorta is normal in caliber. Limited views of the upper abdomen show pneumobilia. There is stable 10 mm right adrenal nodule. There are no suspicious osseous lesions. IMPRESSION: 1. Stable right upper lobe scarring likely representing treatment change without increase in soft tissue thickening to indicate local recurrence. 2. Multifocal groundglass nodules throughout both lungs are stable to minimally increased in size. 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 Dictated by: Dictated on workstation # [id number]
== END ==
LOC: RAD FS 09:09
PROVIDERS: ATTEND Radiology Radiation Oncology
DX: C34.11 Malignant neoplasm of upper lobe, right bronchus or lung (principal)
CPT/HCPCS: 71250

== ENCOUNTER → 2021-06-29 | Outpatient (CLI) | payer MEDICARE, OTHER ==
--- NOTE | 2021-06-29 17:31 | Diagnostic Imaging Report ---
PROCEDURE: CT lumbar spine without contrast. TECHNIQUE: Multiple contiguous axial images were obtained through the lumbar spine without the use of intravenous contrast. Sagittal and coronal reformations were then performed. Auto Exposure Controls were utilized during the CT exam to meet ALARA standards for radiation dose reduction. INDICATION: Spinal stenosis. COMPARISON: 04/12/2021. FINDINGS: Five lumbar-type vertebral bodies are present. Mild apex left curvature of the lumbar spine. No significant anterolisthesis or retrolisthesis. Posterior decompression of L4 and L5 is identified with bilateral posterior pedicle screws spanning from L4 through S1. No evidence of hardware complication. Interbody disc devices are present at L4/L5 and L5/S1. Besides endplate degenerative changes, greatest at L3/L4, vertebral body heights are otherwise well maintained. Severe disc space height loss at L3/L4 with vacuum disc phenomenon. Mild disc space height loss at L2/L3. Moderate disc space height loss at L4/L5 and L5/S1 with associated interbody disc devices present. No acute fracture or dislocation. Bone graft donor site noted within the right ilium. Advanced vascular calcifications. Cholecystectomy. Nonobstructing bilateral renal calculi. Postsurgical changes noted within the abdomen bilaterally. T12/L1: No high-grade osseous central canal or neural foraminal stenosis. L1/L2: Mild facet joint degenerative changes. No high-grade osseous central canal or neural foraminal stenosis. L2/L3: Mild disc space height loss. Moderate facet joint degenerative changes. Ligamentum flavum hypertrophy. Diffuse disc bulge. There is resulting at least moderate trefoil-type central canal stenosis with moderate left and mild right neural foraminal stenosis. L3/L4: Severe disc space height loss. Advanced facet joint degenerative changes. Ligamentum flavum hypertrophy. Diffuse disc osteophyte complex. There is resulting high-grade central canal stenosis with at least moderate bilateral neural foraminal stenosis. L4/L5: Postsurgical changes. Disc space height loss. No high-grade osseous central canal stenosis with at least mild left neural foraminal stenosis present. L5/S1: Postsurgical changes. Disc space height loss. No significant osseous central canal stenosis. Moderate right neural foraminal stenosis and mild left neural foraminal stenosis. IMPRESSION: Postsurgical changes and degenerative changes within the lumbar spine without acute osseous abnormality or evidence of hardware complication. Multilevel central canal and neural foraminal stenosis as described above. These findings are greatest at the L3/L4 and L2/L3 levels. Dictated by: Dictated on workstation # [id number]
== END ==
LOC: RAD FS 09:30
PROVIDERS: ATTEND Orthopaedic Surgery
DX: M47.816 Spondylosis without myelopathy or radiculopathy, lumbar region (principal); M51.26 Other intervertebral disc displacement, lumbar region; M48.061 Spinal stenosis, lumbar region without neurogenic claudication; M25.78 Osteophyte, vertebrae; M24.28 Disorder of ligament, vertebrae
CPT/HCPCS: 72131

== ENCOUNTER → 2021-06-29 | Outpatient (CLI) | payer MEDICARE, OTHER ==
--- NOTE | 2021-06-29 13:17 | Diagnostic Imaging Report ---
PROCEDURE: US Renal Bilateral. TECHNIQUE: Multiple real-time grayscale images were obtained over the kidneys in various projections bilaterally. INDICATION: Kidney stones. Hydronephrosis Right kidney measures approximately 12 cm in length. Cortex is well-maintained. No suspicious mass or hydronephrosis is seen on either side. Left kidney measures 11 cm in length. The cortex well-maintained. There are echogenic areas seen bilaterally consistent with nonobstructing stones bilaterally. Prevoid volume of the bladder is approximately 125 mL with a postvoid residual of 37 mL. No abnormality of the bladder is seen. IMPRESSION: There are bilateral nonobstructing renal stones present with no acute abnormality seen. There is no hydronephrosis seen. Dictated by: Dictated on workstation # [id number]
== END ==
LOC: RAD FS 09:38
PROVIDERS: ATTEND Specialist
DX: N20.2 Calculus of kidney with calculus of ureter (principal)
CPT/HCPCS: 76770

== ENCOUNTER → 2022-01-01 | Outpatient (CLI) | payer MEDICARE, OTHER ==
[~2022-01-01] MED LIST changes: -LISI2.5T PO; +LISI2.5T13 PO; +POTA-179 PO; -POTA20TA15 PO
[2022-01-01 13:13] LABS: BASOPHILS % (AUTO) 0 % (0-10); EOSINOPHILS # (AUTO) 0.1 10^3/uL (0.0-0.3); EOSINOPHILS % (AUTO) 1 % (0-10); HEMATOCRIT 40 % (40-54); HEMOGLOBIN 13.1 g/dL (13.3-17.7); LYMPHOCYTES # (AUTO) 0.9 10^3/uL (1.0-4.0); LYMPHOCYTES % (AUTO) 8 % (12-44); MEAN CORPUSCULAR HEMOGLOBIN 28 pg (25-34); MEAN CORPUSCULAR HGB CONC 32 g/dL (32-36); MEAN CORPUSCULAR VOLUME 86 fL (80-99); MEAN PLATELET VOLUME 10.8 fL (9.0-12.2); MONOCYTES # (AUTO) 0.9 10^3/uL (0.0-1.0); MONOCYTES % (AUTO) 8 % (0-12); NEUTROPHILS # (AUTO) 9.1 10^3/uL (1.8-7.8); NEUTROPHILS % (AUTO) 82 % (42-75); PLATELET COUNT 232 10^3/uL (130-400); WHITE BLOOD COUNT 11.1 10^3/uL (4.3-11.0)
[2022-01-01 15:25] LABS: BAND NEUTROPHILS 3 %; BASOPHILS % (MANUAL) 0 %; EOSINOPHILS % (MANUAL) 1 %; LYMPHOCYTES % (MANUAL) 6 %; MONOCYTES % (MANUAL) 5 %; NEUTROPHILS % (MANUAL) 84 %; PLATELET ESTIMATE NORMAL; RBC MORPH NORMAL
== END ==
LOC: LAB FS 12:44
PROVIDERS: ATTEND Surgery
DX: K62.5 Hemorrhage of anus and rectum (principal); R53.83 Other fatigue
CPT/HCPCS: 36415; 85007; 85027

== ENCOUNTER 2022-01-11 10:14 | Outpatient (CLI) | payer MEDICARE, OTHER ==
[~2022-01-11] VITALS: Ht 177.8 cm; Wt 82.6 kg
== END 2022-01-11 14:03 | disposition home or self-care (01) ==
LOC: PREOP 10:14
PROVIDERS: ATTEND Surgery
DX: Z01.818 Encounter for other preprocedural examination (principal)

== ENCOUNTER 2022-01-16 06:58 | Day surgery (SDC) | payer MEDICARE, OTHER ==
[~2022-01-16] VITALS: Ht 178 cm; Wt 82.6 kg
[2022-01-16] MEDS ORDERED: LACTATED RINGERS 1,000 ML IV STA (07:04)
[2022-01-16] MEDS ORDERED: LACTATED RINGERS 1,000 ML IV ONE (07:07)
[2022-01-16 07:23] VITALS: BP 190/81
[2022-01-16] MEDS ORDERED: proPOfol 200 MG/20 ML (DIPRIVAN) VIAL IV ONE (07:42)
--- NOTE | 2022-01-16 08:04 | Progress Note-Pre Operative ---
Pre-Operative Progress Note H&P Reviewed The H&P was reviewed, patient examined and no changes noted. Date Seen by Provider: Jan 16, 2022 Time Seen by Provider: 08:04 Date H&P Reviewed: Jan 16, 2022 Time H&P Reviewed: 08:04 Pre-Operative Diagnosis: blood per rectum HERIBERTO ANNA DO Jan 16, 2022 08:04
[2022-01-16 08:25] VITALS: BP 173/69
[2022-01-16 08:30] VITALS: BP 169/69
--- NOTE | 2022-01-16 08:30 | Progress Note-Post Operative ---
Post-Operative Progess Note Surgeon (s)/Esthetician Spa (s) Surgeon HERIBERTO ANNA DO Esthetician Spa: na Pre-Operative Diagnosis blood per rectum Post-Operative Diagnosis nonuse proctitis, rectal stricutures Procedure & Operative Findings Date of Procedure 01/16/22 Procedure Performed/Findings proctoscopy c biopsies rectum and rectal strictures Anesthesia Type per mda Estimated Blood Loss Estimated blood loss (mL): none Specimens/Packing Specimens Removed rectum, rectal stricture HERIBERTO ANNA DO Jan 16, 2022 08:30
--- NOTE | 2022-01-16 08:30 | Discharge Inst-Simple/Standard ---
Discharge Inst-Standard Patient Instructions/Follow Up Plan of Care/Instructions/FU: 2 weeks brandy Activity as Tolerated: Yes Discharge Diet: Regular Diet HERIBERTO ANNA DO Jan 16, 2022 08:30
[2022-01-16 08:55] VITALS: BP 184/76
[2022-01-16 08:58] VITALS: BP 184/76
--- NOTE | 2022-01-16 14:33 | Anesthesia-General Post-Op ---
MAC Patient Condition Mental Status/LOC: Same as Preop Cardiovascular: Satisfactory Nausea/Vomiting: Absent Respiratory: Satisfactory Pain: Controlled Complications: Absent Post Op Complications Complications None Follow Up Care/Instructions Patient Instructions None needed. Anesthesiology Discharge Order Discharge Order Patient was seen after the procedure this morning and he was doing well, no complaints, stable vital signs, no apparent adverse anesthesia problems. CHASE REVELES DO Jan 16, 2022 14:33
--- NOTE | 2022-01-16 14:53 | OPERATIVE REPORT ---
DATE OF SERVICE: 01/16/2022 PREOPERATIVE DIAGNOSIS: Blood per rectum. 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 PROCEDURES PERFORMED: Proctoscopy with biopsies of the rectum and rectal stricture. SURGEON: Heriberto Phillips DO. ANESTHESIA: Per MDA. ESTIMATED BLOOD LOSS: None. COMPLICATIONS: None. INDICATIONS FOR PROCEDURE: The patient is an 81-year-old male with a diverting colostomy. He has been having some bleeding from his rectal stump. He understands the risks and benefits of the procedure and wished to proceed. Consent was signed in the chart. DESCRIPTION OF PROCEDURE: The patient was taken to the endoscopy suite and placed in a left lateral recumbent position. A timeout was performed. Digital rectal exam was performed noting significant stricture right at the rectal opening. No palpable polyps, masses or ulcerations at the anus. A gastroscope was inserted through the anus and then visualizing the stricture, which was present, a finger was then reinserted into the rectum and gently used to slightly dilate the stricture. The scope was then reinserted and able to be passed through the stricture seen in the rectum with slight inflammatory changes suggestive of colitis/proctitis. Scope was then continued to be advanced and again visualizing two other structures present. No other pathology was able to be visualized. A biopsy of the rectum was obtained. Scope was then slowly retracted back to the stricture, where biopsy of the stricture was obtained. Scope was then continuously and slowly retracted back until completely removed. The patient tolerated the procedure well without any complications and taken to the recovery room in stable condition. RECOMMENDATIONS: The patient to await biopsy results. Further recommendations pending biopsy results and may consider barium enema to evaluate the rest depending upon comfort and findings. CC: Rosalee Rosa APRN - requested, unable to deliver. Job ID: [id number] DocumentID: [id number] Dictated Date: 01/16/2022 08:34:39 Coach Driver Date: 01/16/2022 14:52:38 Dictated By: HERIBERTO PHILLIPS DO [facility] CENTERAixa
== END 2022-01-16 09:05 | disposition home or self-care (01) ==
LOC: ENDO 06:58
PROVIDERS: ATTEND Surgery
DX: K62.5 Hemorrhage of anus and rectum (principal); K62.1 Rectal polyp; K52.9 Noninfective gastroenteritis and colitis, unspecified; K62.4 Stenosis of anus and rectum; Z93.3 Colostomy status

== ENCOUNTER 2022-06-03 15:59 | Emergency (ER) | payer MEDICARE, OTHER ==
[2022-06-03] MEDS ORDERED: ONDANSETRON 4 MG/2 ML (SDV) Z0FRAN IVP STA (16:27)
[2022-06-03] MEDS ORDERED: KETOROLAC 30 MG/ML VIAL IVP STA (16:27)
[2022-06-03] MEDS ORDERED: NS IV 1000 ML 1,000 ML IV STA (16:27)
[2022-06-03 16:41] LABS: BASOPHILS % (AUTO) 0 % (0-10); EOSINOPHILS # (AUTO) 0.2 10^3/uL (0.0-0.3); EOSINOPHILS % (AUTO) 2 % (0-10); HEMATOCRIT 41 % (40-54); HEMOGLOBIN 13.6 g/dL (13.3-17.7); LYMPHOCYTES # (AUTO) 0.8 10^3/uL (1.0-4.0); LYMPHOCYTES % (AUTO) 8 % (12-44); MEAN CORPUSCULAR HEMOGLOBIN 28 pg (25-34); MEAN CORPUSCULAR HGB CONC 33 g/dL (32-36); MEAN CORPUSCULAR VOLUME 85 fL (80-99); MEAN PLATELET VOLUME 10.3 fL (9.0-12.2); MONOCYTES # (AUTO) 0.8 10^3/uL (0.0-1.0); MONOCYTES % (AUTO) 8 % (0-12); NEUTROPHILS # (AUTO) 8.2 10^3/uL (1.8-7.8); NEUTROPHILS % (AUTO) 82 % (42-75); PLATELET COUNT 266 10^3/uL (130-400)
[2022-06-03] MEDS ORDERED: IOHEXOL 350 MG/ML 100 ML (OMNIPAQUE 350) VIAL IV ONE (16:45)
[2022-06-03] MEDS ORDERED: HOLD METFORMIN - RECEIVED CONTRAST 20 ML VIAL IV SCH (16:45)
[2022-06-03] MEDS ORDERED: NS 100 ML (IVPB) BAG IV ONE (16:45)
[2022-06-03 17:03] LABS: ALBUMIN 4.1 GM/DL (3.2-4.5); BILIRUBIN,TOTAL 0.3 MG/DL (0.1-1.0); CREATININE SERUM 0.89 MG/DL (0.60-1.30); POTASSIUM 4.1 MMOL/L (3.6-5.0); TOTAL PROTEIN 7.3 GM/DL (6.4-8.2)
[2022-06-03 17:06] LABS: LYMPHOCYTES % (MANUAL) 10 %; MONOCYTES % (MANUAL) 8 %; NEUTROPHILS % (MANUAL) 82 %
--- NOTE | 2022-06-03 17:11 | ED GI ---
General Chief Complaint: Abdominal/GI Problems Stated Complaint: ABD PAIN; NAUSEA Source of Information: Patient, Spouse History of Present Illness Date Seen by Provider: Jun 03, 2022 Time Seen by Provider: 16:12 Initial Comments 81-year-old male presenting with complaints of severe abdominal pain that was coming in waves. He states that this started earlier this morning and had proceeded throughout the day. He was having nausea with the pain as well. He did not have any actual vomiting. He had not been eating or drinking very much due to the pain. He denies having eaten anything different recently. He does have a history of having multiple surgeries on his abdomen including a prior Whipple procedure, duodenal ulcer secondary to the Whipple procedure, bleeding ulcers and resultant colostomy. He also has had prior lung cancer and treatment for that. He recently had COVID over 3 weeks ago. He has not been having fevers or chills today. He denies having any pain or burning with urination. They have not seen any bright red blood in his stool but felt like it was darker than normal today Timing/Duration: 12 Hours Severity/Quality: Severe, Cramping, Stabbing Location: Generalized Abdomen Activities at Onset: None Modifying Factors: Worsens With Movement, Worsens With Palpation Associated Symptoms: No Back Pain, No Chest Pain, No Diaphoresis, No Fever/Chills, No Fatigue, No Headache, No Heartburn; Nausea/Vomiting (Nausea without vomiting); No Rash, No Shortness of Air, No Swelling/Mass in Abdomen, No Syncope, No Weakness Allergies and Home Medications Allergies Coded Allergies: codeine (Verified Allergy, Unknown, itching, 05/08/19) Patient Home Medication List Home Medication List Reviewed: Yes Acetaminophen (Acetaminophen Extra Strength) 500 Mg Tablet, 500-1,000 MG PO Q6H PRN for PAIN-MILD, (Reported) Entered as Reported by: ROSMERY MCMAHON on 04/17/19 1508 Apixaban (Eliquis) 5 Mg Tablet, 5 MG PO BID, (Reported) Entered as Reported by: ROSMERY MCMAHON on 04/17/19 1358 Ascorbic Acid (Vitamin C) 500 Mg Tablet, 500 MG PO DAILY, (Reported) Entered as Reported by: ROSMERY MCMAHON on 04/17/19 1459 Aspirin (Aspirin EC) 81 Mg Tablet., 81 MG PO DAILY Prescribed by: ALISA DIALLO on 04/18/19 1200 Diltiazem HCl (Diltiazem 24Hr ER) 240 Mg Cap.er.24h, 240 MG PO DAILY Prescribed by: DEVON VICTOR on 12/01/20 1133 Diphenhydramine HCl (Benadryl) 25 Mg Capsule, 25 MG PO BID PRN for ITCHING, (Reported) Entered as Reported by: ROSMERY MCMAHON on 04/17/19 1508 Ferrous Sulfate (Iron) 325 Mg Tablet, 325 MG PO DAILY, (Reported) Entered as Reported by: ROSMERY MCMAHON on 04/17/19 1459 Flecainide Acetate (Flecainide Acetate) 100 Mg Tablet, 100 MG PO BID, (Reported) Entered as Reported by: ROSMERY MCMAHON on 04/17/19 1358 Hydrochlorothiazide (Hydrochlorothiazide) 12.5 Mg Tablet, 12.5 MG PO DAILY, ( Reported) Entered as Reported by: ROSMERY MCMAHON on 04/17/19 1358 Hydrocodone Bit/Acetaminophen (Lortab 5 Mg Tablet) 1 Each Tablet, 1 TAB PO BID PRN for PAIN-MODERATE, (Reported) Entered as Reported by: ROSMERY MCMAHON on 04/17/19 1358 Lisinopril (Lisinopril) 2.5 Mg Tablet, 2.5 MG PO DAILY, (Reported) Entered as Reported by: ROSMERY MCMAHON on 04/17/19 1358 Meclizine HCl (Meclizine HCl) 25 Mg Tablet, 25 MG PO TID PRN for DIZZINESS, (Reported) Entered as Reported by: ROSMERY MCMAHON on 04/17/19 1528 Metformin HCl (Metformin HCl) 500 Mg Tablet, 500 MG PO DAILY, (Reported) Entered as Reported by: ROSMERY MCMAHON on 04/17/19 1358 Multivitamin (Multivitamins) 1 Each Tablet, 1 TAB PO DAILY, (Reported) Entered as Reported by: ROSMERY MCMAHON on 04/17/19 1459 Pantoprazole Sodium (Pantoprazole Sodium) 40 Mg Tablet.dr, 40 MG PO BID, (Reported) Entered as Reported by: ROSMERY MCMAHON on 04/17/19 1358 Potassium Chloride (Potassium Chloride) 20 Meq Tab.er.prt, 20 MEQ PO BID, (Reported) Entered as Reported by: ROSMERY MCMAHON on 04/17/19 6458 Temazepam (Temazepam) 30 Mg Capsule, 30 MG PO HS, (Reported) Entered as Reported by: ROSMERY MCMAHON on 04/17/19 9799 Review of Systems Review of Systems Constitutional: No chills, No fever EENTM: No Symptoms Reported Respiratory: No Symptoms Reported Cardiovascular: No Symptoms Reported Gastrointestinal: See HPI Genitourinary: See HPI Musculoskeletal: no symptoms reported Skin: no symptoms reported Psychiatric/Neurological: No Symptoms Reported Endocrine: No Symptoms Reported Past Gwkwhzz-Baxrdx-Cfsocw Hx Patient Social History Tobacco Use?: No Substance use?: No Alcohol Use?: No Pt feels they are or have been: No Immunizations Up To Date First/Initial COVID19 Vaccinat: JANUARY 2021 Second COVID19 Vaccination Ameya: FEBRUARY 2021 Third COVID19 Vaccination Date: SEPTEMBER 2021 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: [employer] Seasonal Allergies Seasonal Allergies: No Past Medical History Surgery/Hospitalization HX: Pacemaker, Illeostomy, bowel resection, Back surgery, Biateral knee replacement; Cataract removal; ERCP; Lithotripsy; Whipple; lung cancer; Lobectomy, Right shoulder replacement; Peptic ulcers; HTN Surgeries: Yes (spinal surgery, ileostomy, whipple-ampullary mass) Abdominal, Eye Surgery, Joint Replacement, Lobectomy, Prostatectomy Respiratory: Yes (Right lower lobectomy) Cardiac: Yes Atrial Fibrillation, Irregular Heartbeat, Palpitations Neurological: No Genitourinary: Yes Prostate Problems, Kidney Stones Gastrointestinal: Yes (Colostomy) Liver Disease/Jaundice, Gastrointestinal Bleed Musculoskeletal: Yes Arthritis Endocrine: No HEENT: Yes Cataract Cancer: Yes Lung What Type of Treatment Did You: Surgical Intervention Psychosocial: No Integumentary: No Blood Disorders: No Physical Exam Vital Signs Vital Signs - First Documented 06/03/22 16:59 Temp 36.5 Pulse 67 Resp 18 B/P (MAP) 183/65 (104) Pulse Ox 98 O2 Delivery Room Air Capillary Refill : Height/Weight/BMI Height: 5'10.00" Weight: 175lbs. 8.0oz. [id number]; 26.06 BMI Method:Stated General Appearance: other (Appears chronically ill. In no acute distress) HEENT: PERRL/EOMI, pharynx normal Neck: non-tender, full range of motion, supple, normal inspection Respiratory: chest non-tender, lungs clear, normal breath sounds, no respiratory distress, no accessory muscle use Cardiovascular: normal peripheral pulses, regular rate, rhythm Gastrointestinal: normal bowel sounds, soft, no pulsatile mass; No distended, No guarding, No rebound; tenderness (Tenderness to the mid abdomen around his colostomy) Rectal: deferred Extremities: normal range of motion, non-tender, normal capillary refill Neurologic/Psychiatric: alert, oriented x 3 Skin: normal color, warm/dry Images 1 - Abdominal pain to the mid abdominal area on either side of his colostomy Focused Exam Lactate Level 06/03/22 16:24: Lactic Acid Level 1.83 Lactic Acid Level Laboratory Tests Test 06/03/22 16:24 Lactic Acid Level 1.83 MMOL/L (0.50-2.00) Progress/Results/Core Measures Results/Orders Lab Results Laboratory Tests Test 06/03/22 16:24 06/03/22 17:33 Range/Units White Blood Count 10.0 4.3-11.0 10^3/uL Red Blood Count 4.88 4.30-5.52 10^6/uL Hemoglobin 13.6 13.3-17.7 g/dL Hematocrit 41 40-54 % Mean Corpuscular Volume 85 80-99 fL Mean Corpuscular Hemoglobin 28 25-34 pg Mean Corpuscular Hemoglobin Concent 33 32-36 g/dL Red Cell Distribution Width 14.8 H 10.0-14.5 % Platelet Count 266 130-400 10^3/uL Mean Platelet Volume 10.3 9.0-12.2 fL Immature Granulocyte % (Auto) 1 % Neutrophils (%) (Auto) 82 H 42-75 % Lymphocytes (%) (Auto) 8 L 12-44 % Monocytes (%) (Auto) 8 0-12 % Eosinophils (%) (Auto) 2 0-10 % Basophils (%) (Auto) 0 0-10 % Neutrophils # (Auto) 8.2 H 1.8-7.8 10^3/uL Lymphocytes # (Auto) 0.8 L 1.0-4.0 10^3/uL Monocytes # (Auto) 0.8 0.0-1.0 10^3/uL Eosinophils # (Auto) 0.2 0.0-0.3 10^3/uL Basophils # (Auto) 0.0 0.0-0.1 10^3/uL Immature Granulocyte # (Auto) 0.1 0.0-0.1 10^3/uL Neutrophils % (Manual) 82 % Lymphocytes % (Manual) 10 % Monocytes % (Manual) 8 % Prothrombin Time 13.4 12.2-14.7 SEC INR Comment 1.0 0.8-1.4 Activated Partial Thromboplast Time 31 24-35 SEC Sodium Level 136 135-145 MMOL/L Potassium Level 4.1 3.6-5.0 MMOL/L Chloride Level 99 98-107 MMOL/L Carbon Dioxide Level 26 21-32 MMOL/L Anion Gap 11 5-14 MMOL/L Blood Urea Nitrogen 13 7-18 MG/DL Creatinine 0.89 0.60-1.30 MG/DL Estimat Glomerular Filtration Rate 86 BUN/Creatinine Ratio 15 Glucose Level 107 H 70-105 MG/DL Lactic Acid Level 1.83 0.50-2.00 MMOL/L Calcium Level 10.0 8.5-10.1 MG/DL Corrected Calcium 9.9 8.5-10.1 MG/DL Total Bilirubin 0.3 0.1-1.0 MG/DL Aspartate Amino Transf (AST/SGOT) 23 5-34 U/L Alanine Aminotransferase (ALT/SGPT) 18 0-55 U/L Alkaline Phosphatase 87 40-136 U/L Total Protein 7.3 6.4-8.2 GM/DL Albumin 4.1 3.2-4.5 GM/DL Lipase 45 8-78 U/L Urine Color YELLOW Urine Clarity CLEAR Urine pH 6.0 5-9 Urine Specific Pax 1.010 L 1.016-1.022 Urine Protein NEGATIVE NEGATIVE Urine Glucose (UA) NEGATIVE NEGATIVE Urine Ketones NEGATIVE NEGATIVE Urine Nitrite NEGATIVE NEGATIVE Urine Bilirubin NEGATIVE NEGATIVE Urine Urobilinogen 0.2 < = 1.0 MG/DL Urine Leukocyte Esterase NEGATIVE NEGATIVE Urine RBC (Auto) 1+ H NEGATIVE Urine RBC 25-50 H /HPF Urine WBC 0-2 /HPF Urine Squamous Epithelial Cells 2-5 /HPF Urine Crystals NONE /LPF Urine Bacteria TRACE /HPF Urine Casts NONE /LPF Urine Mucus MODERATE H /LPF Urine Culture Indicated NO My Orders Orders - ONEL GEE MD Comprehensive Metabolic Panel (06/03/22 16:27) Lipase (06/03/22 16:27) Ua Culture If Indicated (06/03/22 16:27) Ed Iv/Invasive Line Start (06/03/22 16:27) Cbc With Automated Diff (06/03/22 16:27) Ct Abdomen/Pelvis W (06/03/22 16:27) Ns Iv 1000 Ml (Sodium Chloride 0.9%) (06/03/22 16:27) Ondansetron Injection (Zofran Injectio (06/03/22 16:27) Ketorolac Injection (Toradol Injection) (06/03/22 16:27) Manual Differential (06/03/22 16:24) Iohexol Injection (Omnipaque 350 Mg/Ml 1 (06/03/22 16:45) Received Contrast (Hold Metformin- Contr (06/03/22 16:45) Ns (Ivpb) (Sodium Chloride 0.9% Ivpb Bag (06/03/22 16:45) Lactic Acid Analyzer (06/03/22 17:10) Protime With Inr (06/03/22 17:10) Partial Thromboplastin Time (06/03/22 17:10) Medications Given in ED Current Medications Medications Dose Ordered Sig/Mark Route Start Time Stop Time Status Last Admin Dose Admin Iohexol 100 ml ONCE ONCE IV 06/03/22 16:45 06/03/22 16:47 DC 06/03/22 17:16 100 ML Sodium Chloride 100 ml ONCE ONCE IV 06/03/22 16:45 06/03/22 16:47 DC 06/03/22 17:16 100 ML Vital Signs/I&O 06/03/22 06/03/22 16:59 21:14 Temp 36.5 36.7 Pulse 67 56 Resp 18 20 B/P (MAP) 183/65 (104) 134/56 Pulse Ox 98 96 O2 Delivery Room Air Room Air 06/04/22 00:00 Intake Total 1000 ml Balance 1000 ml Progress Progress Note #1: Progress Note Obtain basic labs and urine. CT scan of the abdomen pelvis with IV contrast to look for signs of ischemic bowel, bowel obstruction, colitis, diverticulitis, pyelonephritis, kidney stones, actively bleeding ulcers. Administered normal saline 1 L IV fluid bolus for hydration, Toradol 15 mg IV for pain, Zofran 4 mg IV for her nausea. Progress Note #2: Progress Note CBC and chemistry appear stable without acute significant abnormality. Add on lactic acid to look for signs of ischemic bowel, coags to look for signs of bleeding or coagulopathy. Still awaiting urinalysis and CT scan patient states he has not had any further pain since he received medication here in the ED Progress Note #3: Progress Note Urinalysis was slightly concentrated and had increased red blood cells but did not appear to be infected. Awaiting CT scan Progress Note #4: Time: 18:[address] report shows small intussusception and wall irregularity of the gastrojejunostomy concerning for associated marginal ulcer. No evidence of perforation. Since he has had several abdominal surgeries and complicated surgical history that has been managed at [facility], will call and check with [facility] since they had done his previous surgery. The last ulcer and problem he had with the stomach was in 2018. I spoke with SOPHIA Warner, at the [facility] transfer center. He took the basic information on the patient and requested that we fax labs and CT report as well as cloud the images of the CT for review. Progress Note #5: Time: 19:49 Progress Note I spoke with SOPHIA Slaughter, at the [facility] Transfer Center. He took over for SOPHIA Warner. He advised that he was waiting to hear back from the medicine or surgery teams to see what they recommend doing for his condition. He had given them all the information that had been faxed to them with labs and CT imaging. He will call back once they hear what the teams want to do for him. Progress Note #6: Time: 20:19 Progress Note SOPHIA Slaughter, with [facility] transfer center called back and stated that Dr. Cespedes will accept the patient for transfer. After reviewing they will evaluate and decide any necessary treatments for his CT findings and symptoms Diagnostic Imaging Diagonstic Imaging: CT Plain Films/CT/US/NM/MRI: abdomen, pelvis Comments NAME: JOANN CLAIRE MED REC#: [id number] PT STATUS: REG ER : 1940 PHYSICIAN: ONEL GEE MD ADMIT DATE: 06/03/22/ER FS Draft Date of Exam:06/03/22 CT ABDOMEN/PELVIS W EXAMINATION: CT abdomen and pelvis with intravenous contrast. TECHNIQUE: Multiple contiguous axial images were obtained through the abdomen and pelvis after the uneventful administration of intravenous contrast. All CT scans use one or more of the following dose optimizing techniques: automated exposure control, MA and/or KvP adjustment based on patient size and exam type or iterative reconstruction. HISTORY: Abdominal pain. COMPARISON: 04/12/2021. FINDINGS: Limited views of the lower thorax show pacemaker leads and coronary artery calcifications. The liver is normal without focal lesion. Pneumobilia is present. No biliary ductal dilation. Gallbladder is absent. Pancreatic head has been resected. There is pancreatic ductal dilation. Spleen is normal. There is a stable 10 mm right adrenal nodule. There are nonobstructing stones in the right kidney. There are a few simple cysts in the left kidney. No suspicious renal lesion. There is no hydronephrosis. Urinary bladder is normal. There has been a colon resection. An ostomy is present in the right lower quadrant. There has been a duodenal resection. There is a small intussusception at the gastrojejunostomy with an area of wall irregularity concerning for marginal ulcer. No evidence of perforation. No free fluid or air. No abdominal or pelvic lymphadenopathy. Aorta is normal in caliber without aneurysm. There is no suspicious osseus lesion. IMPRESSION: Small intussusception and wall irregularity of the gastrojejunostomy concerning for an associated marginal ulcer. No evidence of perforation. Dictated on workstation # [id number] Dict: 06/03/22 1808 Trans: 06/03/221815 [facility] [id number] Interpreted by: OJ GIBBS MD Electronically signed by: Reviewed: Reviewed by Me Departure Impression Primary Impression: Gastroduodenal intussusception Additional Impression: Diffuse abdominal pain Disposition: XF [facility]-TRM HOSP Condition: Stable Transfer Transfer Reason: Exceeds level of care (Requires Specialized Abdominal surgeons at [facility]) Time Spoke to Accepting Phy: 20:19 Transfer Progress Notes SOPHIA Slaughter, called back from [facility] Transfer Center and advised that Dr. Cespedes accepted pt for transfer and evaluation at [facility]. Transfer Facility: [facility] Method of Transfer: EMS Departure-Patient Inst. Referrals: ROSMERY WADE APRN (PCP) Primary Care Physician [facility] (Family) Primary Care Physician ONEL GEE MD Jun 03, 2022 17:11
[2022-06-03 17:21] LABS: PROTHROMBIN TIME PATIENT 13.4 SEC (12.2-14.7)
[2022-06-03 17:38] LABS: BILIRUBIN,URINE NEGATIVE (NEGATIVE); CLARITY,URINE CLEAR; COLOR,URINE YELLOW; GLUCOSE, URINE (UA) NEGATIVE (NEGATIVE); KETONES,URINE NEGATIVE (NEGATIVE); LEUKOCYTE ESTERASE ,URINE NEGATIVE (NEGATIVE); NITRITE,URINE NEGATIVE (NEGATIVE); PROTEIN,URINE NEGATIVE (NEGATIVE)
[2022-06-03 17:41] LABS: BACTERIA,URINE TRACE /HPF; RBC,URINE 25-50 /HPF; WBC,URINE 0-2 /HPF
--- NOTE | 2022-06-03 18:17 | Diagnostic Imaging Report ---
EXAMINATION: CT abdomen and pelvis with intravenous contrast. TECHNIQUE: Multiple contiguous axial images were obtained through the abdomen and pelvis after the uneventful administration of intravenous contrast. All CT scans use one or more of the following dose optimizing techniques: automated exposure control, MA and/or KvP adjustment based on patient size and exam type or iterative reconstruction. HISTORY: Abdominal pain. COMPARISON: 04/12/2021. FINDINGS: Limited views of the lower thorax show pacemaker leads and coronary artery calcifications. The liver is normal without focal lesion. Pneumobilia is present. No biliary ductal dilation. Gallbladder is absent. Pancreatic head has been resected. There is pancreatic ductal dilation. Spleen is normal. There is a stable 10 mm right adrenal nodule. There are nonobstructing stones in the right kidney. There are a few simple cysts in the left kidney. No suspicious renal lesion. There is no hydronephrosis. Urinary bladder is normal. There has been a colon resection. An ostomy is present in the right lower quadrant. There has been a duodenal resection. There is a small intussusception at the gastrojejunostomy with an area of wall irregularity concerning for marginal ulcer. No evidence of perforation. No free fluid or air. No abdominal or pelvic lymphadenopathy. Aorta is normal in caliber without aneurysm. There is no suspicious osseus lesion. IMPRESSION: Small intussusception and wall irregularity of the gastrojejunostomy concerning for an associated marginal ulcer. No evidence of perforation. Dictated by: Dictated on workstation # [id number]
[2022-06-03 21:14] VITALS: BP 134/56
== END 2022-06-03 22:02 | disposition short-term general hospital (02) ==
LOC: EDUNIT# 15:59 → ER FS 16:01
DX: K56.1 Intussusception (principal); Z87.19 Personal history of other diseases of the digestive system; Z93.4 Other artificial openings of gastrointestinal tract status; Z93.3 Colostomy status; Z93.2 Ileostomy status; Z98.890 Other specified postprocedural states; Z86.16 Personal history of COVID-19
CPT/HCPCS: 36415; 74177; 80053; 81000; 83605; 83690; 85007; 85027; 85610; 85730; Q9967

== ENCOUNTER → 2022-07-17 | Outpatient (CLI) | payer MEDICARE, OTHER | LOC: CARDFS 12:42 | PROVIDERS: ATTEND Internal Medicine Cardiovascular Disease | DX: I51.7 Cardiomegaly (principal) | CPT/HCPCS: 93306 ==

== ENCOUNTER → 2022-08-20 | Outpatient (CLI) | payer MEDICARE, OTHER ==
[2022-08-20 10:15] LABS: POTASSIUM 4.3 MMOL/L (3.6-5.0)
[2022-08-20 10:16] LABS: CALCIUM 9.6 MG/DL (8.5-10.1); CREATININE SERUM 0.84 MG/DL (0.60-1.30)
== END ==
LOC: LAB FS 08:23
DX: I48.91 Unspecified atrial fibrillation (principal); I10 Essential (primary) hypertension
CPT/HCPCS: 36415; 80048

== ENCOUNTER → 2022-12-03 | Outpatient (CLI) | payer MEDICARE, OTHER ==
[~2022-12-03] MED LIST changes: +HOLD METFORMIN - RECEIVED CONTRAST 20 ML VIAL IV SCH; +IOHEXOL 350 MG/ML 100 ML (OMNIPAQUE 350) VIAL IV ONE; +NITROGLYCERIN 0.4 MG SL TABS BTL 25'S SL ONE; +NS 100 ML (IVPB) BAG IV ONE; +meTOprolol 5 MG/5 ML (LOPRESSOR) VIAL IV PRN
--- NOTE | 2022-12-03 14:43 | Diagnostic Imaging Report ---
INDICATION: Chest pain CT coronary artery study performed with pre- and post-IV contrast images with EKG gating and multiplanar and MIP reconstructions. Dual-lead pacemaker device is in place. There is some mild atherosclerotic plaquing of the aorta without evidence of aneurysm or dissection. The right coronary artery is patent and shows moderate areas of calcified plaquing proximally as well as in its descending portion. There does not appear to be high-grade stenosis in the right coronary artery. There is densely calcified plaquing in the left main coronary artery with apparent significant stenosis in its mid to distal aspect. There is prominent calcified plaquing in the proximal portion of the LAD with high-grade stenosis. The distal LAD appears patent. The circumflex coronary artery appears patent. There is a ramus intermedius branch which shows dense calcified plaquing. IMPRESSION: Evidence of coronary disease as described above. There appears to be significant stenosis in the left main coronary artery at its mid to distal aspect. There is extensive calcified plaquing in the proximal LAD with significant stenosis. There is moderate plaquing in the ramus intermedius branch. There is mild/moderate plaquing in the right coronary artery, without high-grade right coronary artery stenosis. Dictated by: Dictated on workstation # [id number]
== END ==
LOC: RAD 08:32
DX: I25.10 Atherosclerotic heart disease of native coronary artery without angina pectoris (principal)
CPT/HCPCS: 36415; 75574; 82565; 84520

== ENCOUNTER → 2022-12-26 | Outpatient (CLI) | payer MEDICARE, OTHER ==
[~2022-12-26] MED LIST changes: -HOLD METFORMIN - RECEIVED CONTRAST 20 ML VIAL IV SCH; -IOHEXOL 350 MG/ML 100 ML (OMNIPAQUE 350) VIAL IV ONE; -NITROGLYCERIN 0.4 MG SL TABS BTL 25'S SL ONE; -NS 100 ML (IVPB) BAG IV ONE; -meTOprolol 5 MG/5 ML (LOPRESSOR) VIAL IV PRN
== END ==
LOC: LAB FS 14:35
PROVIDERS: ATTEND Specialist
DX: N30.00 Acute cystitis without hematuria (principal)
CPT/HCPCS: 87088

== ENCOUNTER → 2022-12-28 | Outpatient (CLI) | payer MEDICARE, OTHER ==
[2022-12-28 09:56] LABS: BASOPHILS % (AUTO) 0 % (0-10); EOSINOPHILS # (AUTO) 0.2 10^3/uL (0.0-0.3); EOSINOPHILS % (AUTO) 3 % (0-10); HEMATOCRIT 41 % (40-54); HEMOGLOBIN 13.3 g/dL (13.3-17.7); LYMPHOCYTES # (AUTO) 1.2 10^3/uL (1.0-4.0); LYMPHOCYTES % (AUTO) 14 % (12-44); MEAN CORPUSCULAR HEMOGLOBIN 28 pg (25-34); MEAN CORPUSCULAR HGB CONC 33 g/dL (32-36); MEAN CORPUSCULAR VOLUME 86 fL (80-99); MEAN PLATELET VOLUME 10.7 fL (9.0-12.2); MONOCYTES # (AUTO) 0.7 10^3/uL (0.0-1.0); MONOCYTES % (AUTO) 8 % (0-12); NEUTROPHILS # (AUTO) 6.4 10^3/uL (1.8-7.8); NEUTROPHILS % (AUTO) 74 % (42-75); PLATELET COUNT 255 10^3/uL (130-400); WHITE BLOOD COUNT 8.6 10^3/uL (4.3-11.0)
== END ==
LOC: LAB FS 09:39
PROVIDERS: ATTEND Nurse Practitioner Family
DX: R31.9 Hematuria, unspecified (principal)
CPT/HCPCS: 36415; 85025

== ENCOUNTER → 2023-06-25 | Outpatient (CLI) | payer MEDICARE, OTHER ==
--- NOTE | 2023-06-25 09:05 | Diagnostic Imaging Report ---
HISTORY: Pre-MRI screening for MRI pacemaker. COMPARISON: 11/30/2020 TECHNIQUE: Frontal view of the chest. FINDINGS: Lung volumes are large. There is a nodular opacity in the right upper lobe. There was chronic scarring in this region previously, but this appears more nodular compared to prior studies. There is no pleural effusion or pneumothorax. The cardiac silhouette is stable in size. The right shoulder arthroplasty is noted. Fusion hardware in the cervical spine is present. There is a left-sided pacemaker. There are 2 leads present. No fractured or abandoned leads are seen. IMPRESSION: 1. Left-sided pacemaker with no fractured or abandoned leads. 2. Scarring in the right upper lobe, appears to have an increased nodular appearance. Consider CT of the chest followup. Faxed to Dr. Mj Lombardo at [facility] at 9:00 a.m. by cvb. Faxed to Rosalee Rosa APRN at 9:00 a.m. by cvb. Dictated by: Dictated on workstation # [id number]
--- NOTE | 2023-06-25 10:43 | Diagnostic Imaging Report ---
PROCEDURE: MRI lumbar spine. TECHNIQUE: Multiplanar, multisequence MRI of the lumbar spine was performed without contrast. INDICATION: Back pain COMPARISON: CT of the lumbar spine on 06/29/2021. FINDINGS: Postsurgical changes from prior posterior fusion and laminectomy from L4 to S1. Straightening of the lumbar lordosis. Mild anterolisthesis of L2 on L3. Moderate multilevel disc height loss. 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 Included views of the abdomen demonstrates a partially imaged small bilateral renal cysts. T12-L1: No spinal canal and neural foraminal stenosis. L1-L2: Disc bulge. Mild facet arthritis. No spinal canal or neuroforaminal stenosis. L2-L3: Asymmetric left foraminal disc protrusion. Mild facet arthropathy. Ligamentum flavum thickening. Moderate to severe spinal canal and lateral recess stenosis. Severe left neuroforaminal stenosis. Mild right neural foraminal narrowing. L3-L4: Disc bulge. Moderate facet arthropathy. Ligamentum flavum thickening. Moderate to severe spinal canal and lateral recess stenosis. Moderate right and mild left neuroforaminal narrowing. L4-L5: Posterior decompression. No significant spinal canal or neuroforaminal stenosis. L5-S1: Posterior decompression. No significant spinal canal and neuroforaminal stenosis. IMPRESSION: Multilevel degenerative changes, worse at L2-L3 and L3-L4. L2-L3: Asymmetric left foraminal disc protrusion. Mild facet arthropathy. Ligamentum flavum thickening. Moderate to severe spinal canal and lateral recess stenosis. Severe left neuroforaminal stenosis. Mild right neural foraminal narrowing. L3-L4: Disc bulge. Moderate facet arthropathy. Ligamentum flavum thickening. Moderate to severe spinal canal and lateral recess stenosis. Moderate right and mild left neuroforaminal narrowing. Dictated by: Dictated on workstation # [id number]
== END ==
LOC: RAD 08:00
PROVIDERS: ATTEND Nurse Practitioner Family
DX: M47.816 Spondylosis without myelopathy or radiculopathy, lumbar region (principal); M51.26 Other intervertebral disc displacement, lumbar region; M24.28 Disorder of ligament, vertebrae; M48.061 Spinal stenosis, lumbar region without neurogenic claudication; R91.8 Other nonspecific abnormal finding of lung field; Z95.0 Presence of cardiac pacemaker
CPT/HCPCS: 71045; 72148